=== PATIENT | male | born 1950 | race Caucasian/White ===

== ENCOUNTER 2016-12-12 09:34 | Inpatient (IN) | payer MEDICARE ==
[2016-12-12 09:55] LABS: Glucose,Whole Blood >600 mg/dL (75-99)
[2016-12-12] MEDS ORDERED: SODIUM CHLORIDE 0.9% 1,000 ML IV ONE (09:55)
[2016-12-12] MEDS ORDERED: Magnesium Replacement Protocol 1 EACH MISC MISCELLANE PRN (09:55)
[2016-12-12] MEDS ORDERED: Potassium Replacement Protocol 1 EACH MISC MISCELLANE PRN (09:55)
[2016-12-12] MEDS ORDERED: INSULIN REGULAR BOLUS (FROM DRIP BAG) IV ONE (09:55)
--- NOTE | 2016-12-12 09:59 | ED ---
General Adult HPI - General Chief complaint: Recheck/Abnormal Lab/Rx Stated complaint: hyperglycemia, no hx sent by dr ayoub Time Seen by Provider: 12/12/16 09:45 Source: patient, family, RN notes reviewed Mode of arrival: wheelchair Limitations: no limitations - History of Present Illness Initial comments: Patient is a pleasant 66-year-old male presenting to the emergency Department with reported high blood sugar. Patient did go to his doctor's office today and blood sugars found to be greater than 600. Patient admits he has not felt well for a couple of weeks. Patient has lost proximally 20 or 30 pounds. Patient has had increased thirst. Patient has had increased urination. No history of diabetes her symptoms similar in the past. - Related Data Home Medications Medication Instructions Recorded Confirmed Atorvastatin Calcium [Lipitor] 10 mg PO HS 09/10/14 12/12/16 Aspirin EC [Ecotrin] 81 mg PO HS 05/03/16 12/12/16 L.acidoph,Paracasei, B.lactis 1 cap PO HS 12/12/16 12/12/16 [Probiotic] Allergies Allergy/AdvReac Type Severity Reaction Status Date / Time No Known Allergies Allergy Verified 12/12/16 11:10 Review of Systems ROS Statement: Those systems with pertinent positive or pertinent negative responses have been documented in the HPI. ROS Other: All systems not noted in ROS Statement are negative. Constitutional: Denies: fever Eyes: Denies: eye pain ENT: Denies: ear pain Respiratory: Denies: cough Cardiovascular: Denies: chest pain Endocrine: Reports: polydipsia, polyuria. Denies: fatigue Gastrointestinal: Reports: nausea. Denies: abdominal pain Genitourinary: Denies: dysuria Musculoskeletal: Denies: back pain Skin: Denies: rash Neurological: Denies: weakness Past Medical History Past Medical History: Coronary Artery Disease (CAD), Hyperlipidemia, Myocardial Infarction ([place]) History of Any Multi-Drug Resistant Organisms: None Reported Past Surgical History: Appendectomy, Coronary Bypass/CABG, Heart Catheterization Additional Past Surgical History / Comment(s): cabg (5 vessels) 1999 Past Anesthesia/Blood Transfusion Reactions: No Reported Reaction Past Psychological History: No Psychological Hx Reported Smoking Status: Never smoker Past Alcohol Use History: None Reported Past Drug Use History: None Reported General Exam Limitations: no limitations General appearance: alert, in no apparent distress Head exam: Present: atraumatic Eye exam: Present: normal appearance ENT exam: Present: mucous membranes dry Neck exam: Present: normal inspection Respiratory exam: Present: normal lung sounds bilaterally Cardiovascular Exam: Present: regular rate, normal rhythm GI/Abdominal exam: Present: soft. Absent: tenderness Extremities exam: Present: normal inspection. Absent: pedal edema, calf tenderness Neurological exam: Present: alert Psychiatric exam: Present: normal affect, normal mood Skin exam: Present: normal color Course Vital Signs 12/12/16 12/12/16 12/12/16 09:41 10:02 11:50 Temperature 96.6 F L Pulse Rate 117 H 104 H 103 H Respiratory 16 15 18 Rate Blood Pressure 133/93 155/94 150/72 O2 Sat by Pulse 95 94 L 95 Oximetry - Reevaluation(s) Reevaluation #1: 12/12/16 12:03 Patient reevaluated. Patient and family updated on results and plan. Dr. Ayoub age for admission. IV fluids and IV insulin has been started. Patient meets criteria for hyperosmolar hyperglycemic state. 12/12/16 12:29 Case was discussed in detail with Dr. Dr. Ayoub who will admit his patient to ICU with consult for Dr. Pacheco. Dr. Pacheco has been paged. EKG Findings - EKG Comments: EKG Findings:: Sinus tachycardia 102. MA 1:30. QRS 90. QT 350. QTC 456 per left axis. Normal QRS. Normal ST-T. Medical Decision Making - Lab Data Result diagrams: 12/12/16 10:00 12/12/16 10:00 Lab Results 12/12/16 12/12/16 12/12/16 Range/Units 09:51 10:00 10:00 WBC (3.8-10.6) k/uL RBC (4.30-5.90) m/uL Hgb (13.0-17.5) gm/dL Hct (39.0-53.0) % MCV (80.0-100.0) fL MCH (25.0-35.0) pg MCHC (31.0-37.0) g/dL RDW (11.5-15.5) % Plt Count (150-450) k/uL Neutrophils % % Lymphocytes % % Monocytes % % Eosinophils % % Basophils % % Neutrophils # (1.3-7.7) k/uL Lymphocytes # (1.0-4.8) k/uL Monocytes # (0-1.0) k/uL Eosinophils # (0-0.7) k/uL Basophils # (0-0.2) k/uL Hypochromasia Sodium 147 H (137-145) mmol/L Potassium 5.6 H (3.5-5.1) mmol/L Chloride 103 (98-107) mmol/L Carbon Dioxide 14 L (22-30) mmol/L Anion Gap 30 mmol/L BUN 43 H (9-20) mg/dL Creatinine 1.40 H (0.66-1.25) mg/dL Est GFR (MDRD) Af Amer >60 (>60 ml/min/1.73 sqM) Est GFR (MDRD) Non-Af 51 (>60 ml/min/1.73 sqM) Glucose 960 H* (74-99) mg/dL POC Glucose (mg/dL) >600 H (75-99) mg/dL POC Glu Algebra Tutor ID Ramiro Dimas Osmolality 385 H* (280-301) mosm/kg Calcium 11.5 H (8.4-10.2) mg/dL Phosphorus 7.5 H (2.5-4.5) mg/dL Magnesium 2.7 H (1.6-2.3) mg/dL Total Bilirubin 1.0 (0.2-1.3) mg/dL AST 27 (17-59) U/L ALT 53 (21-72) U/L Alkaline Phosphatase 173 H (38-126) U/L Total Creatine Kinase 111 (55-170) U/L CK-MB (CK-2) 1.2 (0.0-2.4) ng/mL CK-MB (CK-2) Rel Index 1.1 Troponin I <0.012 (0.000-0.034) ng/mL Total Protein 7.5 (6.3-8.2) g/dL Albumin 4.2 (3.5-5.0) g/dL Urine Color Urine Appearance (Clear) Urine pH (5.0-8.0) Ur Specific [place] (1.001-1.035) Urine Protein (Negative) Urine Glucose (UA) (Negative) Urine Ketones (Negative) Urine Blood (Negative) Urine Nitrate (Negative) Urine Bilirubin (Negative) Urine Urobilinogen (<2.0) mg/dL Ur Leukocyte Esterase (Negative) Urine RBC (0-5) /hpf Urine WBC (0-5) /hpf Hyaline Casts (0-2) /lpf Granular Casts (0) /lpf Urine Mucus (None) /hpf Urine Osmolality (50-1400) mosm/kg Acetone, Qual Positive (Negative) 12/12/16 12/12/16 12/12/16 Range/Units 10:00 10:07 10:07 WBC 12.5 H (3.8-10.6) k/uL RBC 5.81 (4.30-5.90) m/uL Hgb 17.6 H (13.0-17.5) gm/dL Hct 58.3 H (39.0-53.0) % MCV 100.2 H (80.0-100.0) fL MCH 30.3 (25.0-35.0) pg MCHC 30.3 L (31.0-37.0) g/dL RDW 12.9 (11.5-15.5) % Plt Count 183 (150-450) k/uL Neutrophils % 90 % Lymphocytes % 5 % Monocytes % 4 % Eosinophils % 0 % Basophils % 0 % Neutrophils # 11.2 H (1.3-7.7) k/uL Lymphocytes # 0.6 L (1.0-4.8) k/uL Monocytes # 0.5 (0-1.0) k/uL Eosinophils # 0.0 (0-0.7) k/uL Basophils # 0.0 (0-0.2) k/uL Hypochromasia Marked Sodium (137-145) mmol/L Potassium (3.5-5.1) mmol/L Chloride (98-107) mmol/L Carbon Dioxide (22-30) mmol/L Anion Gap mmol/L BUN (9-20) mg/dL Creatinine (0.66-1.25) mg/dL Est GFR (MDRD) Af Amer (>60 ml/min/1.73 sqM) Est GFR (MDRD) Non-Af (>60 ml/min/1.73 sqM) Glucose (74-99) mg/dL POC Glucose (mg/dL) (75-99) mg/dL POC Glu Algebra Tutor ID Osmolality (280-301) mosm/kg Calcium (8.4-10.2) mg/dL Phosphorus (2.5-4.5) mg/dL Magnesium (1.6-2.3) mg/dL Total Bilirubin (0.2-1.3) mg/dL AST (17-59) U/L ALT (21-72) U/L Alkaline Phosphatase (38-126) U/L Total Creatine Kinase (55-170) U/L CK-MB (CK-2) (0.0-2.4) ng/mL CK-MB (CK-2) Rel Index Troponin I (0.000-0.034) ng/mL Total Protein (6.3-8.2) g/dL Albumin (3.5-5.0) g/dL Urine Color Light Yellow Urine Appearance Clear (Clear) Urine pH 5.0 (5.0-8.0) Ur Specific [place] 1.023 (1.001-1.035) Urine Protein Negative (Negative) Urine Glucose (UA) 4+ H (Negative) Urine Ketones 2+ H (Negative) Urine Blood Trace H (Negative) Urine Nitrate Negative (Negative) Urine Bilirubin Negative (Negative) Urine Urobilinogen <2.0 (<2.0) mg/dL Ur Leukocyte Esterase Negative (Negative) Urine RBC 2 (0-5) /hpf Urine WBC 1 (0-5) /hpf Hyaline Casts 1 (0-2) /lpf Granular Casts 3 (0) /lpf Urine Mucus Rare H (None) /hpf Urine Osmolality 635 (50-1400) mosm/kg Acetone, Qual (Negative) 12/12/16 Range/Units 11:47 WBC (3.8-10.6) k/uL RBC (4.30-5.90) m/uL Hgb (13.0-17.5) gm/dL Hct (39.0-53.0) % MCV (80.0-100.0) fL MCH (25.0-35.0) pg MCHC (31.0-37.0) g/dL RDW (11.5-15.5) % Plt Count (150-450) k/uL Neutrophils % % Lymphocytes % % Monocytes % % Eosinophils % % Basophils % % Neutrophils # (1.3-7.7) k/uL Lymphocytes # (1.0-4.8) k/uL Monocytes # (0-1.0) k/uL Eosinophils # (0-0.7) k/uL Basophils # (0-0.2) k/uL Hypochromasia Sodium (137-145) mmol/L Potassium (3.5-5.1) mmol/L Chloride (98-107) mmol/L Carbon Dioxide (22-30) mmol/L Anion Gap mmol/L BUN (9-20) mg/dL Creatinine (0.66-1.25) mg/dL Est GFR (MDRD) Af Amer (>60 ml/min/1.73 sqM) Est GFR (MDRD) Non-Af (>60 ml/min/1.73 sqM) Glucose (74-99) mg/dL POC Glucose (mg/dL) >600 H (75-99) mg/dL POC Glu Algebra Tutor ID Branch, Yonathan Osmolality (280-301) mosm/kg Calcium (8.4-10.2) mg/dL Phosphorus (2.5-4.5) mg/dL Magnesium (1.6-2.3) mg/dL Total Bilirubin (0.2-1.3) mg/dL AST (17-59) U/L ALT (21-72) U/L Alkaline Phosphatase (38-126) U/L Total Creatine Kinase (55-170) U/L CK-MB (CK-2) (0.0-2.4) ng/mL CK-MB (CK-2) Rel Index Troponin I (0.000-0.034) ng/mL Total Protein (6.3-8.2) g/dL Albumin (3.5-5.0) g/dL Urine Color Urine Appearance (Clear) Urine pH (5.0-8.0) Ur Specific [place] (1.001-1.035) Urine Protein (Negative) Urine Glucose (UA) (Negative) Urine Ketones (Negative) Urine Blood (Negative) Urine Nitrate (Negative) Urine Bilirubin (Negative) Urine Urobilinogen (<2.0) mg/dL Ur Leukocyte Esterase (Negative) Urine RBC (0-5) /hpf Urine WBC (0-5) /hpf Hyaline Casts (0-2) /lpf Granular Casts (0) /lpf Urine Mucus (None) /hpf Urine Osmolality (50-1400) mosm/kg Acetone, Qual (Negative) Critical Care Time Critical Care Time: Yes Total Critical Care Time: 34 Disposition Clinical Impression: Hyperosmolar non-ketotic state in patient with type 2 diabetes mellitus, Hyperglycemia Disposition: ADMITTED IP TO THIS HOSP Condition: Serious
[2016-12-12 10:21] LABS: Basophils % (A) 0 %; CH 29.7; CHCM 29.7; Eosinophils % (A) 0 %; HCT 58.3 % (39.0-53.0); HGB 17.6 gm/dL (13.0-17.5); Hypochromasia Marked; Luc % (Auto) 1; Lymphocytes # (A) 0.6 k/uL (1.0-4.8); Lymphocytes % (A) 5 %; MCH 30.3 pg (25.0-35.0); MCHC 30.3 g/dL (31.0-37.0); MCV 100.2 fL (80.0-100.0); Mean Platelet Volume 10.6; Monocytes # (A) 0.5 k/uL (0-1.0); Monocytes % (A) 4 %; Neutrophils # (A) 11.2 k/uL (1.3-7.7); Neutrophils % (A) 90 %; RBC 5.81 m/uL (4.30-5.90); RDW 12.9 % (11.5-15.5); WBC 12.5 k/uL (3.8-10.6); WBC (Perox) 12.95
[2016-12-12] MEDS: SODIUM CHLORIDE 0.9% 1,000 ML IV SCH ×3 (10:22→20:01)
[2016-12-12 10:26] LABS: ALT 53 U/L (21-72); AST 27 U/L (17-59); Alkaline Phosphatase 173 U/L (38-126); Anion Gap 30 mmol/L; Blood Urea Nitrogen 43 mg/dL (9-20); Calcium 11.5 mg/dL (8.4-10.2); Carbon Dioxide 14 mmol/L (22-30); Chloride 103 mmol/L (98-107); Magnesium 2.7 mg/dL (1.6-2.3); Non-African American GFR(MDRD) 51 (>60 ml/min/1.73 sqM); Phosphorous 7.5 mg/dL (2.5-4.5); Potassium 5.6 mmol/L (3.5-5.1); Sodium 147 mmol/L (137-145); Total Protein 7.5 g/dL (6.3-8.2)
[2016-12-12 10:30] LABS: Appearance,Urine Clear (Clear); Bilirubin,Urine Negative (Negative); Glucose,Urine (UA) 4+ (Negative); Granular Casts,Urine 3 /lpf (0); Leukocyte Esterase,Urine Negative (Negative); Mucus,Urine Rare /hpf; Nitrite,Urine Negative (Negative); Particle Count 1389; Protein,Urine Negative (Negative); RBC,Urine 2 /hpf (0-5); Specific Gravity,Urine 1.023 (1.001-1.035); UA Billing (MACRO vs. MICRO) MICRO; Urobilinogen,Urine <2.0 mg/dL (<2.0); WBC,Urine 1 /hpf (0-5)
[2016-12-12 10:36] LABS: Glucose 960 mg/dL (74-99)
[2016-12-12 10:38] LABS: Creatine Kinase 111 U/L (55-170)
[2016-12-12 10:51] LABS: Creatine Kinase MB 1.2 ng/mL (0.0-2.4); Troponin I <0.012 ng/mL (0.000-0.034)
[2016-12-12] MEDS ORDERED: INSULIN REGULAR 100 UNIT in SODIUM CHLORIDE 0.9% 100 ML IV SCH (11:00)
[2016-12-12 11:19] LABS: Ketones,Urine 2+ (Negative)
--- NOTE | 2016-12-12 11:23 | XR ---
EXAMINATION TYPE: XR chest 2V DATE OF EXAM: 12/12/2016 11:04 AM COMPARISON: 05/03/2016 HISTORY: Shortness of breath TECHNIQUE: Frontal and lateral views of the chest are obtained. FINDINGS: Scattered senescent parenchymal changes noted. Hyperinflation compatible with COPD. No evidence for infiltrate. No evidence for atelectasis. Heart size is stable. Mediastinal structures are stable and grossly unremarkable. No evidence for hilar prominence. Degenerative changes dorsal spine. IMPRESSION: 1. No evidence for acute pulmonary disease.
[2016-12-12] MEDS ORDERED: SODIUM CHLORIDE 0.9% 500 ML IV STA (11:31)
[2016-12-12 11:48] LABS: Glucose,Whole Blood >600 mg/dL (75-99)
[2016-12-12 12:31] LABS: INR 1.1 (<1.1); Prothrombin Time 10.9 sec (9.0-12.0)
[2016-12-12 12:34] LABS: Partial Thromboplastin Time 16.5 sec (22.0-30.0)
[2016-12-12 12:48] LABS: Glucose,Whole Blood 460 mg/dL (75-99)
[2016-12-12 13:42] LABS: Glucose,Whole Blood 381 mg/dL (75-99)
--- NOTE | 2016-12-12 14:01 | P.HPIM ---
History of Present Illness H&P Date: 12/12/16 Chief Complaint: diabetic ketoacidosis, new onset of diabetes, acute kidney injury, hyperosm 66-year-old male one of my office patient for long time with history of hypertension hyperlipidemia and CAD post CABG from who seen cardiology regular basis as well. Patient was in for his wellness visit few month ago and had normal blood sugar and testing at the time. Patient has been in [place] for the last few weeks but he traveled back to [place] to take care of his girlfriend was been sick for the last few weeks. Patient has complained of worsening symptom with severe tiredness fatigue polyuria and nocturia not feeling well and become more lightheaded and dizzy for the last 2 weeks become much worse lately with weight loss as well and excessive thirst's at significant weight loss. Patient symptoms become much worse today ended up doing to the office his blood sugar in the office was extremely high was sent to the emergency department at [facility] surprisingly his blood sugar was over 900 with ketone positive he was diagnosed with DKA started on insulin drip and admitted to the hospital with above problem. His kidney function was abnormal potassium was high as well. Review of Systems Constitutional: Reports anorexia, Reports fatigue, Reports lethargy, Reports malaise, Reports poor appetite, Reports sweats, Reports weakness, Reports weight loss, Denies as per HPI, Denies chills, Denies chronic headaches, Denies chronic pain, Denies daytime sleepiness, Denies fever, Denies night sweats, Denies weight gain Eyes: bilateral as per HPI Ears: bilateral: decreased hearing Ears, nose, mouth and throat: Reports ant. neck pain, Reports nasal congestion, Reports sinus pain, Reports sinus pressure, Denies as per HPI, Denies bleeding gums, Denies dental pain, Denies dysphagia, Denies epistaxis, Denies headache, Denies hoarseness, Denies mouth pain, Denies nasal discharge, Denies neck fullness/pressure, Denies neck lump, Denies nose pain, Denies odynophagia, Denies post-nasal drip, Denies swelling in mouth, Denies swelling in throat, Denies sore throat, Denies vertigo, Denies voice changes Cardiovascular: Reports as per HPI, Reports dyspnea on exertion, Reports edema, Reports high blood pressure, Reports orthopnea, Reports rapid heart beat, Reports shortness of breath, Denies chest pain, Denies claudication, Denies decreased exercise tolerance, Denies irregular heart beat, Denies leg edema, Denies lightheadedness, Denies palpitations, Denies paroxysmal nocturnal dyspnea , Denies phlebitis, Denies syncope Respiratory: Reports congestion, Reports dyspnea, Reports sleep apnea, Denies as per HPI, Denies cough, Denies cough with sputum, Denies excessive sputum, Denies hemoptysis, Denies home oxygen, Denies pain, Denies pain on inspiration, Denies pleurisy, Denies respiratory infections, Denies snoring, Denies wheezing Gastrointestinal: Reports abdominal pain, Reports bloating, Reports constipation , Reports dyspepsia, Reports indigestion, Reports nausea, Denies as per HPI, Denies belching, Denies BRBPR, Denies change in bowel habits, Denies coffee ground emesis, Denies diarrhea, Denies early satiety, Denies excessive gas, Denies heartburn, Denies hematemesis, Denies hematochezia, Denies jaundice, Denies lactose intolerance, Denies loss of appetite, Denies melena, Denies vomiting Genitourinary: Reports polyuria, Reports urinary frequency, Reports urinary hesitancy, Denies as per HPI, Denies decreased libido, Denies difficulties fathering child, Denies discharge, Denies dysuria, Denies erectile dysfunction, Denies flank pain, Denies genital pain, Denies genital sores, Denies hematuria, Denies impotence, Denies incontinence, Denies kidney stones, Denies nocturia, Denies testicular lump, Denies testicular pain, Denies urinary retention Musculoskeletal: Reports low back pain, Reports myalgias, Reports neck pain, Denies as per HPI, Denies arm numbness/tingling, Denies atrophy, Denies fractures, Denies frequent falls, Denies gait dysfunction, Denies hot joints, Denies leg numbness/tingling, Denies limitation of motion, Denies loss of height , Denies morning stiffness, Denies muscle cramps, Denies muscle weakness, Denies neck stiffness, Denies prior amputations, Denies redness of joints, Denies shooting arm pain, Denies shooting leg pain Musculoskeletal: bilateral: ankle pain Integumentary: Reports dryness, Reports pruritus, Reports rash, Denies as per HPI, Denies acne, Denies boils, Denies brittle nails, Denies change in hair/ nails, Denies color changes, Denies darkening of skin, Denies depigmentation, Denies foot/leg ulcers, Denies growths, Denies hirsutism, Denies lesions, Denies onychomycosis, Denies sores, Denies striae, Denies unusual bruising, Denies wounds Neurological: Reports ataxia, Reports numbness, Reports paresthesias, Reports tic, Reports tingling, Reports tremors, Reports vertigo, Reports weakness, Denies as per HPI, Denies aphasia, Denies balance difficulties, Denies burning pain, Denies change in mentation, Denies change in smell/taste, Denies change in speech, Denies confusion, Denies convulsions, Denies double vision, Denies gait dysfunction, Denies head injury, Denies headaches, Denies hearing difficulties, Denies lack of coordination, Denies loss of vision, Denies memory loss, Denies migraines, Denies motor disturbance, Denies paralysis, Denies seizures, Denies sensory deficit, Denies spasticity, Denies syncope, Denies transient paralysis, Denies visual changes Psychiatric: Reports anhedonia, Reports depression, Reports sadness/tearfulness , Denies as per HPI, Denies anxiety, Denies anxiety attacks, Denies change in appetite, Denies change in libido, Denies change in sleep habits, Denies confusion, Denies difficulty concentrating, Denies disorientation, Denies hallucinations, Denies hopelessness, Denies hypersomnia, Denies insomnia, Denies irritability, Denies memory loss, Denies mood swings, Denies paranoia, Denies sleep disturbances, Denies suicidal ideation Endocrine: Reports cold intolerance, Reports nocturia, Reports polyuria, Denies as per HPI, Denies deepening of the voice, Denies excessive sweating, Denies excessive thirst, Denies fatigue, Denies flushing, Denies heat intolerance, Denies high blood sugars, Denies increase in ring/shoe/hat size, Denies low blood sugars, Denies palpitations, Denies polydipsia, Denies polyphagia, Denies proptosis, Denies recent glucocorticoid use, Denies thyroid mass, Denies weight change Hematologic/Lymphatic: Reports easy bruising, Denies as per HPI, Denies easy bleeding, Denies lymphadenopathy, Denies lymphedema, Denies thrombophilia Allergic/Immunologic: Denies as per HPI, Denies allergic rhinitis, Denies anaphylaxis, Denies angioedema, Denies gluten intolerance, Denies persistent infections, Denies seasonal allergies, Denies urticaria, Denies wheezing Past Medical History Past Medical History: Coronary Artery Disease (CAD), Hyperlipidemia, Myocardial Infarction ([place]) History of Any Multi-Drug Resistant Organisms: None Reported Past Surgical History: Appendectomy, Coronary Bypass/CABG, Heart Catheterization Additional Past Surgical History / Comment(s): cabg (5 vessels) 1999 Past Anesthesia/Blood Transfusion Reactions: No Reported Reaction Past Psychological History: No Psychological Hx Reported Smoking Status: Never smoker Past Alcohol Use History: None Reported Past Drug Use History: None Reported Medications and Allergies Home Medications Medication Instructions Recorded Confirmed Type Atorvastatin Calcium [Lipitor] 10 mg PO HS 09/10/14 12/12/16 History Aspirin EC [Ecotrin] 81 mg PO HS 05/03/16 12/12/16 History L.acidoph,Paracasei, B.lactis 1 cap PO HS 12/12/16 12/12/16 History [Probiotic] Allergies Allergy/AdvReac Type Severity Reaction Status Date / Time No Known Allergies Allergy Verified 12/12/16 11:10 Physical Exam Vitals: Vital Signs Temp Pulse Resp BP Pulse Ox 12/12/16 13:00 97.5 F L 101 H 16 150/87 95 Intake and Output 12/11/16 12/12/16 12/12/16 22:59 06:59 14:59 Intake Total 8.83 Balance 8.83 Intake: Intake, IV Titration 8.83 Amount Insulin Regular 100 unit 8.83 In Sodium Chloride 0.9% 100 ml @ 0.1 UNITS/KG/HR 7.83 mls/hr IV .[id number] [facility] Rx#:[id number] - Constitutional General appearance: no average body habitus, cooperative, disheveled, no mild distress, no morbidly obese, no acute distress, no obese, no severe distress, no thin - EENT Eyes: no abnormal pupil, no anicteric sclerae, no disc margins sharp, no edentulous, no EOMI, no PERRLA, no fundus normal, no photophobia, no dentition normal, no poor dentition, no ptosis, no scleral icterus, normal appearance ENT: hard of hearing, no hearing grossly normal, no NA/AT, no normal oropharynx , no other, pharyngeal erythema, no thrush, no tonsillar exudates, no tonsillar swelling Ears: bilateral: normal - Neck Neck: no lymphadenopathy, normal ROM, no other, no rigidity, no stridor, no thyromegaly Carotids: bilateral: upstroke normal Thyroid: bilateral: normal size - Respiratory Respiratory: bilateral: CTA, diminished - Cardiovascular Rhythm: regular Heart sounds: normal: S1, S2 Abnormal Heart Sounds: systolic murmur - Gastrointestinal General gastrointestinal: no absent bowel sounds, decreased bowel sounds, no distended, no hepatomegaly, no hyperactive bowel sounds, normal bowel sounds, no organomegaly, no rigid, no scaphoid, soft, no splenomegaly, no tenderness, no umbilical hernia, no ventral hernia - Integumentary Integumentary: no calor, no cellulitis, no cyanotic, no decreased turgor, no flushed, no jaundiced, normal, no normal turgor, pale, rash, no ulcer - Neurologic Neurologic: CNII-XII intact - Musculoskeletal Musculoskeletal: gait normal, generalized weakness, strength equal bilaterally, no right sided weakness, no left sided weakness - Psychiatric Psychiatric: A&O x's 3, appropriate affect Results CBC & Chem 7: 12/12/16 10:00 12/12/16 10:00 Labs: Abnormal Lab Results - Last 24 Hours (Table) 12/12/16 12/12/16 12/12/16 Range/Units 12:05 12:47 13:40 APTT 16.5 L (22.0-30.0) sec POC Glucose (mg/dL) 460 H 381 H (75-99) mg/dL Thrombosis Risk Factor Assmnt - DVT/VTE Prophylaxis DVT/VTE Prophylaxis: Pharmacologic Prophylaxis ordered, Mechanical Prophylaxis ordered Assessment and Plan Plan: 1 acute diabetic ketoacidosis: Patient will be on insulin drip continue hydration softly and gently specially with his current blood sugar to avoid having any major neuro problem. Patient will be seen endocrinology for potential further management was start patient on insulin drip and continue on long and short-acting insulin. 2 new onset of diabetes: With blood sugar was normal recently with no clear evidence of any finding earlier. Patient will have CT of the abdomen within cut the pink attic area in the next few weeks continue to treat this as a type 2 diabetes but more insulin-dependent patient will be on insulin short and long- acting. We will consult simulation educator continue current management. 3 acute kidney injury: Continue hydration for DKA and start medication for diabetes hopefully the kidney function will improve otherwise kidney ultrasound be done next 48 hours. 4 hyperosmolality: Most likely secondary to DKA treat underlying disease continue hydration repeat osmolality in 48 hours. 5 CAD: Has been stable no chest pain or angina lately seen cardiology regular basis. 6 hyperlipidemia: On Lipitor 10 mg daily continue medication. 7 GERD: Was start patient on Pepcid 20 mg daily. 8 DVT prophylaxis: Patient will be on heparin subcutaneous for now. CODE STATUS: Full code. Expectation from this admission: Patient be in the hospital for more than 2 nights.
--- NOTE | 2016-12-12 14:42 | P.CNPUL ---
History of Present Illness Consult date: 12/12/16 Requesting physician: Ben Beltre Reason for consult: other (ICU management) Chief complaint: Hyperosmolar hyperglycemia History of present illness: Patient is a pleasant 66-year-old male who is being evaluated and examined, he came into the emergency department straight from his doctor's office today for blood sugars that were greater than 600. The patient had recently lost about 20 -30 pounds, he has had increased thirst, increased urination, fatigue, and lightheadedness. The patient has no known history of diabetes. Patient was admitted to the intensive care unit for hyperosmolar hyperglycemic state. Upon arrival to the ER the patient's blood sugar was over 900 and his ketones are positive he was then started on a DKA protocol with an insulin drip. Upon examination in the ICU, the patient lying down in bed on room air denies any acute distress or shortness of breath. He is on room air. Continues to complain of excessive thirst and frequent urination. Denies any nausea, vomiting, or diarrhea at this time. Review of Systems Complete 14 point review of systems was completed and is negative other than what is noted in the HPI Past Medical History Past Medical History: Coronary Artery Disease (CAD), Chest Pain / Angina, Hyperlipidemia, Renal Disease Additional Past Medical History / Comment(s): nephrolithiasis History of Any Multi-Drug Resistant Organisms: None Reported Past Surgical History: Appendectomy, Coronary Bypass/CABG, Heart Catheterization Additional Past Surgical History / Comment(s): 07/1999 cabg (5 vessels), colonoscopies with polypectomies, lithotripsy, hemorrhoidectomy Past Anesthesia/Blood Transfusion Reactions: No Reported Reaction Past Psychological History: No Psychological Hx Reported Additional Psychological History / Comment(s): Pt resides with his [facility]. He is independent. Smoking Status: Never smoker Past Alcohol Use History: Occasional Past Drug Use History: None Reported Medications and Allergies Home Medications Medication Instructions Recorded Confirmed Type Atorvastatin Calcium [Lipitor] 10 mg PO HS 09/10/14 12/12/16 History Aspirin EC [Ecotrin] 81 mg PO HS 05/03/16 12/12/16 History L.acidoph,Paracasei, B.lactis 1 cap PO HS 12/12/16 12/12/16 History [Probiotic] Allergies Allergy/AdvReac Type Severity Reaction Status Date / Time No Known Allergies Allergy Verified 12/12/16 11:10 Physical Exam Vitals: Vital Signs Temp Pulse Resp BP Pulse Ox 12/12/16 13:00 97.5 F L 101 H 16 150/87 95 Intake and Output 12/11/16 12/12/16 12/12/16 22:59 06:59 14:59 Intake Total 8.83 Balance 8.83 Intake: Intake, IV Titration 8.83 Amount Insulin Regular 100 unit 8.83 In Sodium Chloride 0.9% 100 ml @ 0.1 UNITS/KG/HR 7.83 mls/hr IV .[id number] [facility] Rx#:[id number] GENERAL EXAM: Alert, active, comfortable in no apparent distress. HEAD: Normocephalic. EYES: Normal reaction of pupils, equal size. NOSE: Clear with pink turbinates. THROAT: No erythema or exudates. NECK: No masses, no JVD. CHEST: No chest wall deformity. LUNGS: Equal air entry with no crackles, wheeze, rhonchi or dullness. Bases diminished CVS: S1 and S2 normal with no audible mumurs, regular rhythm. ABDOMEN: No hepatosplenomegaly, normal bowel sounds, no guarding or rigidity. EXTREMITIES: No edema noted, pedal pulses palpable. SKIN: No rashes CENTRAL NERVOUS SYSTEM: No focal deficits, tone is normal in all 4 extremities. Results - Laboratory Findings CBC and BMP: 12/12/16 10:00 12/12/16 10:00 PT/INR, D-dimer PT 10.9 sec (9.0-12.0) 12/12/16 12:05 INR 1.1 (<1.1) 12/12/16 12:05 Abnormal lab findings: Abnormal Labs 12/12/16 12/12/16 12/12/16 12:05 12:47 13:40 APTT 16.5 L POC Glucose (mg/dL) 460 H 381 H - Diagnostic Findings Chest x-ray: report reviewed, image reviewed Assessment and Plan Plan: Assessment Acute diabetic ketoacidosis New-onset diabetes mellitus Acute kidney injury Hyperosmolality History of Coronary artery disease Dyslipidemia GERD Plan Patient will continue on DKA protocol with insulin drip and we will regularly check his blood sugars. Medications reviewed and will be continued as ordered. Continue with hydration to help improve kidney function. Continue with GI and DVT prophylaxis. We will continue to monitor labs and adjust treatment as necessary. I performed an examination of the patient and discussed their management with the nurse practitioner. I have reviewed the nurse practitioner's note and agree with the documented findings and plan of care.
[2016-12-12 14:47] LABS: Glucose,Whole Blood 338 mg/dL (75-99)
[2016-12-12] MEDS: ENOXAPARIN 40 MG/0.4 ML SYRINGE SQ SCH (15:42)
[2016-12-12 15:46] LABS: Glucose,Whole Blood 285 mg/dL (75-99)
[2016-12-12 16:10] LABS: Anion Gap 9 mmol/L; Blood Urea Nitrogen 40 mg/dL (9-20); Carbon Dioxide 25 mmol/L (22-30); Chloride 118 mmol/L (98-107); Glucose 291 mg/dL (74-99); Non-African American GFR(MDRD) >60 (>60 ml/min/1.73 sqM); Phosphorous 1.9 mg/dL (2.5-4.5); Potassium 3.8 mmol/L (3.5-5.1); Sodium 152 mmol/L (137-145)
[2016-12-12] MEDS ORDERED: Phosphorus Replacement Protoco 1 EACH MISC MISCELLANE PRN (16:26)
[2016-12-12 16:51] LABS: Glucose,Whole Blood 254 mg/dL (75-99)
[2016-12-12] MEDS: SODIUM PHOSPHATE 10 MMOL in SODIUM CHLORIDE 0.9% 250 ML IVPB SCH ×2 (17:29→20:01)
[2016-12-12] MEDS: D5-0.45% NACL WITH KCL 20MEQ/L 1,000 ML IV SCH ×2 (17:29→20:01)
[2016-12-12 18:12] LABS: Glucose,Whole Blood 225 mg/dL (75-99)
[2016-12-12 19:24] LABS: Glucose,Whole Blood 220 mg/dL (75-99)
[2016-12-12] MEDS: ASPIRIN 81 MG CHEW PO SCH (20:02)
[2016-12-12] MEDS: ATORVASTATIN 10 MG TAB PO SCH (20:02)
[2016-12-12 20:12] LABS: Glucose,Whole Blood 149 mg/dL (75-99)
[2016-12-12 20:35] LABS: Glucose,Whole Blood 141 mg/dL (75-99)
[2016-12-12 20:38] LABS: Anion Gap 9 mmol/L; Blood Urea Nitrogen 34 mg/dL (9-20); Carbon Dioxide 25 mmol/L (22-30); Chloride 116 mmol/L (98-107); Glucose 159 mg/dL (74-99); Non-African American GFR(MDRD) >60 (>60 ml/min/1.73 sqM); Phosphorous 3.1 mg/dL (2.5-4.5); Potassium 3.7 mmol/L (3.5-5.1); Sodium 150 mmol/L (137-145)
[2016-12-12 21:10] LABS: Glucose,Whole Blood 163 mg/dL (75-99)
[2016-12-12] MEDS: POTASSIUM CHLORIDE 10 MEQ, LIDOCAINE 2% INJ 10 MG in SODIUM CHLORIDE 0.9% 100 ML IV SCH ×2 (21:33→22:44)
[2016-12-12] MEDS: INSULIN LISPRO (humaLOG) 300 UNIT/3 ML VIAL SQ SCH (22:44)
[2016-12-13 04:44] LABS: Basophils % (A) 0 %; CH 30.1; CHCM 32.5; Eosinophils # (A) 0.1 k/uL (0-0.7); Eosinophils % (A) 1 %; HCT 44.8 % (39.0-53.0); HGB 14.8 gm/dL (13.0-17.5); Luc # (Auto) 0.12; Luc % (Auto) 1; Lymphocytes # (A) 1.2 k/uL (1.0-4.8); Lymphocytes % (A) 12 %; MCH 30.8 pg (25.0-35.0); Mean Platelet Volume 9.9; Monocytes # (A) 0.6 k/uL (0-1.0); Monocytes % (A) 5 %; Neutrophils # (A) 8.4 k/uL (1.3-7.7); Neutrophils % (A) 81 %; WBC 10.3 k/uL (3.8-10.6); WBC (Perox) 10.44
[2016-12-13 04:53] LABS: ALT 40 U/L (21-72); AST 21 U/L (17-59); Alkaline Phosphatase 105 U/L (38-126); Anion Gap 11 mmol/L; Blood Urea Nitrogen 30 mg/dL (9-20); Calcium 9.9 mg/dL (8.4-10.2); Carbon Dioxide 23 mmol/L (22-30); Chloride 117 mmol/L (98-107); Glucose 253 mg/dL (74-99); Magnesium 2.1 mg/dL (1.6-2.3); Non-African American GFR(MDRD) >60 (>60 ml/min/1.73 sqM); Sodium 151 mmol/L (137-145); Total Bilirubin 0.7 mg/dL (0.2-1.3); Total Protein 5.3 g/dL (6.3-8.2)
[2016-12-13 04:57] LABS: MCV 93.3 fL (80.0-100.0)
[2016-12-13 05:17] LABS: Potassium 4.3 mmol/L (3.5-5.1)
[2016-12-13] MEDS: SODIUM CHLORIDE 0.9% 1,000 ML IV SCH ×3 (06:46→15:32)
[2016-12-13 07:24] LABS: Glucose,Whole Blood 269 mg/dL (75-99)
[2016-12-13] MEDS ORDERED: PANTOPRAZOLE 40 MG TABLET PO SCH (07:30)
[2016-12-13] MEDS ORDERED: INSULIN LISPRO (humaLOG) 300 UNIT/3 ML VIAL SQ SCH (07:30)
[2016-12-13] MEDS: INSULIN LISPRO (humaLOG) 300 UNIT/3 ML VIAL SQ SCH ×6 (07:46→22:28)
[2016-12-13] MEDS: ENOXAPARIN 40 MG/0.4 ML SYRINGE SQ SCH (07:46)
[2016-12-13] MEDS: FAMOTIDINE 20 MG TAB PO SCH (07:47)
[2016-12-13 07:56] LABS: Hemoglobin A1C 12.1 % (4.2-6.1)
[2016-12-13 10:32] VITALS: BMI 27.0
--- NOTE | 2016-12-13 10:46 | P.PN ---
Subjective Patient is a 66-year-old male who is being evaluated and examined today in the ICU. Patient came to the [facility] department yesterday straight from Dr. Beltre's office for blood sugars that were greater than 600. The patient had recently lost about 20-30 pounds, he had increased thirst and increased urination, fatigue and lightheadedness. The patient has no known history of diabetes. Patient was admitted to the intensive care unit for hyperosmolar hyperglycemic state. Upon arrival to the ER the patient's blood sugar was over 900 and his ketones were positive and he was started on the DKA protocol. On examination in the ICU the patient is currently resting in bed, on room air, and denies any acute distress right now. He states he is feeling better. Per the nursing staff he has been off of the insulin drip last night. He is hemodynamically stable. Objective - Vital Signs Vital signs: Vital Signs Temp 98.1 F 12/13/16 04:00 Pulse 78 12/13/16 07:00 Resp 17 12/13/16 07:00 BP 113/67 12/13/16 07:00 Pulse Ox 97 12/13/16 09:36 Intake & Output 12/12/16 12/13/16 12/13/16 18:59 06:59 18:59 Intake Total 958.83 1900 50 Output Total 200 1100 Balance 758.83 800 50 Weight 80.6 kg 80.6 kg Intake: IV 950 900 50 0.9% 450 50 D5-0.45% NaCl with KCl 450 450 20Meq/l 1,000 ml @ 150 mls/hr IV .[id number] [facility] Rx# :[id number] Sodium Chloride 0.9% 500 500 ml @ 999 mls/hr IV .Q31M [facility] Rx#:[id number] Intake, IV Titration 8.83 700 Amount Insulin Regular 100 unit 8.83 In Sodium Chloride 0.9% 100 ml @ 0.1 UNITS/KG/HR 7.83 mls/hr IV .[id number] [facility] Rx#:[id number] Potassium Chloride 10 meq 200 Lidocaine 2% Inj 10 mg In Sodium Chloride 0.9% 100 ml @ 100 mls/hr IV Q1HR [facility] Rx#:[id number] Sodium Phosphate 10 mmol 500 In Sodium Chloride 0.9% 250 ml @ 125 mls/hr IVPB Q2HR [facility] Rx#:[id number] Oral 300 Output: Urine 200 1100 Other: Voiding Method Urinal Urinal Urinal - Exam GENERAL EXAM: Alert, active, comfortable in no apparent distress. HEAD: Normocephalic. EYES: Normal reaction of pupils, equal size. NOSE: Clear with pink turbinates. THROAT: No erythema or exudates. NECK: No masses, no JVD. CHEST: No chest wall deformity. LUNGS: Equal air entry with no crackles, wheeze, rhonchi or dullness. CVS: S1 and S2 normal with no audible mumurs, regular rhythm. ABDOMEN: No hepatosplenomegaly, normal bowel sounds, no guarding or rigidity. EXTREMITIES: No edema noted, pedal pulses palpable. SKIN: No rashes CENTRAL NERVOUS SYSTEM: No focal deficits, tone is normal in all 4 extremities. - Labs CBC & Chem 7: 12/13/16 04:03 12/13/16 04:03 Labs: Abnormal Lab Results - Last 24 Hours (Table) 12/12/16 12/12/16 12/12/16 Range/Units 12:05 12:47 13:40 Plt Count (150-450) k/uL Neutrophils # (1.3-7.7) k/uL APTT 16.5 L (22.0-30.0) sec Sodium (137-145) mmol/L Chloride (98-107) mmol/L BUN (9-20) mg/dL Glucose (74-99) mg/dL POC Glucose (mg/dL) 460 H 381 H (75-99) mg/dL Hemoglobin A1c (4.2-6.1) % Phosphorus (2.5-4.5) mg/dL Total Protein (6.3-8.2) g/dL Albumin (3.5-5.0) g/dL 12/12/16 12/12/16 12/12/16 Range/Units 14:45 15:44 15:46 Plt Count (150-450) k/uL Neutrophils # (1.3-7.7) k/uL APTT (22.0-30.0) sec Sodium 152 H (137-145) mmol/L Chloride 118 H (98-107) mmol/L BUN 40 H (9-20) mg/dL Glucose 291 H (74-99) mg/dL POC Glucose (mg/dL) 338 H 285 H (75-99) mg/dL Hemoglobin A1c (4.2-6.1) % Phosphorus 1.9 L (2.5-4.5) mg/dL Total Protein (6.3-8.2) g/dL Albumin (3.5-5.0) g/dL 12/12/16 12/12/16 12/12/16 Range/Units 16:49 18:11 19:22 Plt Count (150-450) k/uL Neutrophils # (1.3-7.7) k/uL APTT (22.0-30.0) sec Sodium (137-145) mmol/L Chloride (98-107) mmol/L BUN (9-20) mg/dL Glucose (74-99) mg/dL POC Glucose (mg/dL) 254 H 225 H 220 H (75-99) mg/dL Hemoglobin A1c (4.2-6.1) % Phosphorus (2.5-4.5) mg/dL Total Protein (6.3-8.2) g/dL Albumin (3.5-5.0) g/dL 12/12/16 12/12/16 12/12/16 Range/Units 20:11 20:17 20:34 Plt Count (150-450) k/uL Neutrophils # (1.3-7.7) k/uL APTT (22.0-30.0) sec Sodium 150 H (137-145) mmol/L Chloride 116 H (98-107) mmol/L BUN 34 H (9-20) mg/dL Glucose 159 H (74-99) mg/dL POC Glucose (mg/dL) 149 H 141 H (75-99) mg/dL Hemoglobin A1c (4.2-6.1) % Phosphorus (2.5-4.5) mg/dL Total Protein (6.3-8.2) g/dL Albumin (3.5-5.0) g/dL 12/12/16 12/13/16 12/13/16 Range/Units 21:09 04:03 04:03 Plt Count 123 L (150-450) k/uL Neutrophils # 8.4 H (1.3-7.7) k/uL APTT (22.0-30.0) sec Sodium (137-145) mmol/L Chloride (98-107) mmol/L BUN (9-20) mg/dL Glucose (74-99) mg/dL POC Glucose (mg/dL) 163 H (75-99) mg/dL Hemoglobin A1c 12.1 H (4.2-6.1) % Phosphorus (2.5-4.5) mg/dL Total Protein (6.3-8.2) g/dL Albumin (3.5-5.0) g/dL 12/13/16 12/13/16 Range/Units 04:03 07:22 Plt Count (150-450) k/uL Neutrophils # (1.3-7.7) k/uL APTT (22.0-30.0) sec Sodium 151 H (137-145) mmol/L Chloride 117 H (98-107) mmol/L BUN 30 H (9-20) mg/dL Glucose 253 H (74-99) mg/dL POC Glucose (mg/dL) 269 H (75-99) mg/dL Hemoglobin A1c (4.2-6.1) % Phosphorus (2.5-4.5) mg/dL Total Protein 5.3 L (6.3-8.2) g/dL Albumin 2.7 L (3.5-5.0) g/dL Assessment and Plan Plan: Assessment Acute diabetic ketoacidosis New-onset diabetes mellitus Acute kidney injury Hyperosmolality History of Coronary artery disease Dyslipidemia GERD Plan Patient is cleared to be downgraded from the ICU. Medications reviewed and will be continued as ordered. Continue with blood sugar checks and insulin, diabetes education is put on for new diagnosis of diabetes mellitus. Continue with hydration to help improve kidney function. Continue with GI and DVT prophylaxis. We will continue to monitor labs and adjust treatment as necessary. I performed an examination of the patient and discussed their management with the nurse practitioner. I have reviewed the nurse practitioner's note and agree with the documented findings and plan of care.
--- NOTE | 2016-12-13 11:41 | P.PN ---
Subjective 66-year-old male one of my office patient for long time with history of hypertension hyperlipidemia and CAD post CABG from who seen cardiology regular basis as well. Patient was in for his wellness visit few month ago and had normal blood sugar and testing at the time. Patient has been in [place] for the last few weeks but he traveled back to [place] to take care of his girlfriend was been sick for the last few weeks. Patient has complained of worsening symptom with severe tiredness fatigue polyuria and nocturia not feeling well and become more lightheaded and dizzy for the last 2 weeks become much worse lately with weight loss as well and excessive thirst's at significant weight loss. Patient symptoms become much worse today ended up doing to the office his blood sugar in the office was extremely high was sent to the emergency department at [facility] surprisingly his blood sugar was over 900 with ketone positive he was diagnosed with DKA started on insulin drip and admitted to the hospital with above problem. His kidney function was abnormal potassium was high as well. 12/13: Blood sugars are now running 253-269. Patient will be started on Levemir and scheduled Humalog with meals. Sodium remains high at 151 and chloride wouldn 't 17. Anion gap is 11. Hemoglobin A1c is 12.1. Patient is followed by Dr. Pacheco for intensive care management. Patient will be transferred to Med-surg floor. Anticipate discharge tomorrow to home. Objective - Vital Signs Vital signs: Vital Signs Temp 98.1 F 12/13/16 04:00 Pulse 78 12/13/16 07:00 Resp 17 12/13/16 07:00 BP 113/67 12/13/16 07:00 Pulse Ox 97 12/13/16 07:00 Intake & Output 12/12/16 12/13/16 12/13/16 18:59 06:59 18:59 Intake Total 958.83 1900 50 Output Total 200 1100 Balance 758.83 800 50 Weight 80.6 kg Intake: IV 950 900 50 0.9% 450 50 D5-0.45% NaCl with KCl 450 450 20Meq/l 1,000 ml @ 150 mls/hr IV .Q6H40M [facility] Rx# :[id number] Sodium Chloride 0.9% 500 500 ml @ 999 mls/hr IV .Q31M [facility] Rx#:[id number] Intake, IV Titration 8.83 700 Amount Insulin Regular 100 unit 8.83 In Sodium Chloride 0.9% 100 ml @ 0.1 UNITS/KG/HR 7.83 mls/hr IV .[id number] [facility] Rx#:[id number] Potassium Chloride 10 meq 200 Lidocaine 2% Inj 10 mg In Sodium Chloride 0.9% 100 ml @ 100 mls/hr IV Q1HR [facility] Rx#:[id number] Sodium Phosphate 10 mmol 500 In Sodium Chloride 0.9% 250 ml @ 125 mls/hr IVPB Q2HR [facility] Rx#:[id number] Oral 300 Output: Urine 200 1100 Other: Voiding Method Urinal Urinal Urinal - Exam General appearance: no average body habitus, cooperative, disheveled, no mild distress, no morbidly obese, no acute distress, no obese, no severe distress, no thin - EENT Eyes: no abnormal pupil, no anicteric sclerae, no disc margins sharp, no edentulous, no EOMI, no PERRLA, no fundus normal, no photophobia, no dentition normal, no poor dentition, no ptosis, no scleral icterus, normal appearance ENT: hard of hearing, no hearing grossly normal, no NA/AT, no normal oropharynx , no other, pharyngeal erythema, no thrush, no tonsillar exudates, no tonsillar swelling Ears: bilateral: normal - Neck Neck: no lymphadenopathy, normal ROM, no other, no rigidity, no stridor, no thyromegaly Carotids: bilateral: upstroke normal Thyroid: bilateral: normal size - Respiratory Respiratory: bilateral: CTA, diminished - Cardiovascular Rhythm: regular Heart sounds: normal: S1, S2 Abnormal Heart Sounds: systolic murmur - Gastrointestinal General gastrointestinal: no absent bowel sounds, decreased bowel sounds, no distended, no hepatomegaly, no hyperactive bowel sounds, normal bowel sounds, no organomegaly, no rigid, no scaphoid, soft, no splenomegaly, no tenderness, no umbilical hernia, no ventral hernia - Integumentary Integumentary: no calor, no cellulitis, no cyanotic, no decreased turgor, no flushed, no jaundiced, normal, no normal turgor, pale, rash, no ulcer - Neurologic Neurologic: CNII-XII intact - Musculoskeletal Musculoskeletal: gait normal, generalized weakness, strength equal bilaterally, no right sided weakness, no left sided weakness - Psychiatric Psychiatric: A&O x's 3, appropriate affect - Labs CBC & Chem 7: 12/13/16 04:03 12/13/16 04:03 Labs: Abnormal Lab Results - Last 24 Hours (Table) 12/12/16 12/12/16 12/12/16 Range/Units 12:05 12:47 13:40 Plt Count (150-450) k/uL Neutrophils # (1.3-7.7) k/uL APTT 16.5 L (22.0-30.0) sec Sodium (137-145) mmol/L Chloride (98-107) mmol/L BUN (9-20) mg/dL Glucose (74-99) mg/dL POC Glucose (mg/dL) 460 H 381 H (75-99) mg/dL Hemoglobin A1c (4.2-6.1) % Phosphorus (2.5-4.5) mg/dL Total Protein (6.3-8.2) g/dL Albumin (3.5-5.0) g/dL 12/12/16 12/12/16 12/12/16 Range/Units 14:45 15:44 15:46 Plt Count (150-450) k/uL Neutrophils # (1.3-7.7) k/uL APTT (22.0-30.0) sec Sodium 152 H (137-145) mmol/L Chloride 118 H (98-107) mmol/L BUN 40 H (9-20) mg/dL Glucose 291 H (74-99) mg/dL POC Glucose (mg/dL) 338 H 285 H (75-99) mg/dL Hemoglobin A1c (4.2-6.1) % Phosphorus 1.9 L (2.5-4.5) mg/dL Total Protein (6.3-8.2) g/dL Albumin (3.5-5.0) g/dL 12/12/16 12/12/16 12/12/16 Range/Units 16:49 18:11 19:22 Plt Count (150-450) k/uL Neutrophils # (1.3-7.7) k/uL APTT (22.0-30.0) sec Sodium (137-145) mmol/L Chloride (98-107) mmol/L BUN (9-20) mg/dL Glucose (74-99) mg/dL POC Glucose (mg/dL) 254 H 225 H 220 H (75-99) mg/dL Hemoglobin A1c (4.2-6.1) % Phosphorus (2.5-4.5) mg/dL Total Protein (6.3-8.2) g/dL Albumin (3.5-5.0) g/dL 12/12/16 12/12/16 12/12/16 Range/Units 20:11 20:17 20:34 Plt Count (150-450) k/uL Neutrophils # (1.3-7.7) k/uL APTT (22.0-30.0) sec Sodium 150 H (137-145) mmol/L Chloride 116 H (98-107) mmol/L BUN 34 H (9-20) mg/dL Glucose 159 H (74-99) mg/dL POC Glucose (mg/dL) 149 H 141 H (75-99) mg/dL Hemoglobin A1c (4.2-6.1) % Phosphorus (2.5-4.5) mg/dL Total Protein (6.3-8.2) g/dL Albumin (3.5-5.0) g/dL 12/12/16 12/13/16 12/13/16 Range/Units 21:09 04:03 04:03 Plt Count 123 L (150-450) k/uL Neutrophils # 8.4 H (1.3-7.7) k/uL APTT (22.0-30.0) sec Sodium (137-145) mmol/L Chloride (98-107) mmol/L BUN (9-20) mg/dL Glucose (74-99) mg/dL POC Glucose (mg/dL) 163 H (75-99) mg/dL Hemoglobin A1c 12.1 H (4.2-6.1) % Phosphorus (2.5-4.5) mg/dL Total Protein (6.3-8.2) g/dL Albumin (3.5-5.0) g/dL 12/13/16 12/13/16 Range/Units 04:03 07:22 Plt Count (150-450) k/uL Neutrophils # (1.3-7.7) k/uL APTT (22.0-30.0) sec Sodium 151 H (137-145) mmol/L Chloride 117 H (98-107) mmol/L BUN 30 H (9-20) mg/dL Glucose 253 H (74-99) mg/dL POC Glucose (mg/dL) 269 H (75-99) mg/dL Hemoglobin A1c (4.2-6.1) % Phosphorus (2.5-4.5) mg/dL Total Protein 5.3 L (6.3-8.2) g/dL Albumin 2.7 L (3.5-5.0) g/dL Assessment and Plan Plan: 1 acute diabetic ketoacidosis: Patient will be on insulin drip and change to Levemir and humalog scheduled with scale. Patient will be seen endocrinology for potential further management was start patient on insulin drip and continue on long and short-acting insulin. 2 new onset of diabetes: With blood sugar was normal recently with no clear evidence of any finding earlier. Patient will have CT of the abdomen within cut the pink attic area in the next few weeks continue to treat this as a type 2 diabetes but more insulin-dependent patient will be on insulin short and long- acting. We will consult environmental educator continue current management. 3 acute kidney injury: Continue hydration for DKA and start medication for diabetes hopefully the kidney function will improve otherwise kidney ultrasound be done next 48 hours. 4 hyperosmolality: Most likely secondary to DKA treat underlying disease continue hydration repeat osmolality in 48 hours. 5 CAD: Has been stable no chest pain or angina lately seen cardiology regular basis. 6 hyperlipidemia: On Lipitor 10 mg daily continue medication. 7 GERD: Was start patient on Pepcid 20 mg daily. 8 DVT prophylaxis: Patient will be on heparin subcutaneous for now. CODE STATUS: Full code. Discharge plan: Return home tomorrow. Impression and plan of care have been directed as dictated by the signing physician. Matilde Graham nurse practitioner acting as scribe for signing physician. Time with Patient: Greater than 30
[2016-12-13 12:10] LABS: Glucose,Whole Blood 280 mg/dL (75-99)
[2016-12-13] MEDS: INSULIN DETEMIR 100 UNIT/ML 10 ML VIAL SQ SCH (12:40)
[2016-12-13 17:00] LABS: Glucose,Whole Blood 187 mg/dL (75-99)
[2016-12-13 20:44] LABS: Glucose,Whole Blood 205 mg/dL (75-99)
[2016-12-13] MEDS ORDERED: INSULIN DETEMIR 100 UNIT/ML 10 ML VIAL SQ SCH (21:00)
[2016-12-13] MEDS: ATORVASTATIN 10 MG TAB PO SCH (22:40)
[2016-12-13] MEDS: ASPIRIN 81 MG CHEW PO SCH (22:40)
[2016-12-14 07:44] LABS: Glucose,Whole Blood 147 mg/dL (75-99)
[2016-12-14 07:47] VITALS: BP 103/68; RESP 21; TEMP 97.2
[2016-12-14] MEDS: FAMOTIDINE 20 MG TAB PO SCH (08:01)
[2016-12-14] MEDS: INSULIN DETEMIR 100 UNIT/ML 10 ML VIAL SQ SCH (08:01)
[2016-12-14] MEDS: INSULIN LISPRO (humaLOG) 300 UNIT/3 ML VIAL SQ SCH ×4 (08:02→12:55)
[2016-12-14] MEDS: ENOXAPARIN 40 MG/0.4 ML SYRINGE SQ SCH (08:02)
[2016-12-14 10:08] LABS: ALT 36 U/L (21-72); AST 30 U/L (17-59); Alkaline Phosphatase 127 U/L (38-126); Anion Gap 11 mmol/L; Blood Urea Nitrogen 20 mg/dL (9-20); Calcium 9.9 mg/dL (8.4-10.2); Carbon Dioxide 25 mmol/L (22-30); Chloride 108 mmol/L (98-107); Glucose 229 mg/dL (74-99); Non-African American GFR(MDRD) >60 (>60 ml/min/1.73 sqM); Phosphorous 2.3 mg/dL (2.5-4.5); Potassium 3.9 mmol/L (3.5-5.1); Sodium 144 mmol/L (137-145); Total Protein 6.1 g/dL (6.3-8.2)
[2016-12-14 12:04] VITALS: PULSE 95
[2016-12-14 12:27] LABS: Glucose,Whole Blood 243 mg/dL (75-99)
--- NOTE | 2016-12-14 12:35 | P.PN ---
Subjective Patient is a 66-year-old male who is being evaluated and examined today. Patient came to the [facility] department yesterday straight from Dr. Beltre's office for blood sugars that were greater than 600. The patient had recently lost about 20-30 pounds, he had increased thirst and increased urination, fatigue and lightheadedness. The patient has no known history of diabetes. Patient was admitted to the intensive care unit for hyperosmolar hyperglycemic state. Upon arrival to the ER the patient's blood sugar was over 900 and his ketones were positive and he was started on the DKA protocol. On examination, the patient is on the med surg floor. the patient is currently resting in bed, on room air, and denies any acute distress right now. He states he is feeling better. Patient has completed diabetes mellitus education with her in-hospital security incident response specialist. He is hemodynamically stable. Objective - Vital Signs Vital signs: Vital Signs Temp 97.2 F L 12/14/16 07:00 Pulse 95 12/14/16 08:00 Resp 21 12/14/16 08:00 BP 103/68 12/14/16 07:00 Pulse Ox 91 L 12/14/16 07:00 Intake & Output 12/13/16 12/14/16 12/14/16 18:59 06:59 18:59 Intake Total 250 Output Total 275 700 Balance -25 -700 Weight 82 kg Intake: IV 250 0.45 200 0.9% 50 Output: Urine 275 700 Other: Voiding Method Urinal Urinal Urinal - Exam GENERAL EXAM: Alert, active, comfortable in no apparent distress. HEAD: Normocephalic. EYES: Normal reaction of pupils, equal size. NOSE: Clear with pink turbinates. THROAT: No erythema or exudates. NECK: No masses, no JVD. CHEST: No chest wall deformity. LUNGS: Equal air entry with no crackles, wheeze, rhonchi or dullness. CVS: S1 and S2 normal with no audible mumurs, regular rhythm. ABDOMEN: No hepatosplenomegaly, normal bowel sounds, no guarding or rigidity. EXTREMITIES: No edema noted, pedal pulses palpable. SKIN: No rashes CENTRAL NERVOUS SYSTEM: No focal deficits, tone is normal in all 4 extremities. - Labs CBC & Chem 7: 12/13/16 04:03 12/14/16 08:38 Labs: Abnormal Lab Results - Last 24 Hours (Table) 12/13/16 12/13/16 12/14/16 Range/Units 16:58 20:43 07:31 Chloride (98-107) mmol/L Glucose (74-99) mg/dL POC Glucose (mg/dL) 187 H 205 H 147 H (75-99) mg/dL Phosphorus (2.5-4.5) mg/dL Alkaline Phosphatase (38-126) U/L Total Protein (6.3-8.2) g/dL Albumin (3.5-5.0) g/dL 12/14/16 12/14/16 Range/Units 08:38 12:14 Chloride 108 H (98-107) mmol/L Glucose 229 H (74-99) mg/dL POC Glucose (mg/dL) 243 H (75-99) mg/dL Phosphorus 2.3 L (2.5-4.5) mg/dL Alkaline Phosphatase 127 H (38-126) U/L Total Protein 6.1 L (6.3-8.2) g/dL Albumin 3.1 L (3.5-5.0) g/dL Assessment and Plan Plan: Assessment Acute diabetic ketoacidosis New-onset diabetes mellitus Acute kidney injury Hyperosmolality History of Coronary artery disease Dyslipidemia GERD Plan Patient is cleared for discharge from a pulmonary/critical care standpoint. Medications reviewed and will be continued as ordered. Continue with blood sugar checks and insulin, diabetes education is put on for new diagnosis of diabetes mellitus. The patient should follow up outpatient with working second hand. I performed an examination of the patient and discussed their management with the nurse practitioner. I have reviewed the nurse practitioner's note and agree with the documented findings and plan of care.
--- NOTE | 2016-12-14 12:53 | P.DS ---
Providers Date of admission: 12/12/16 12:04 Expected date of discharge: 12/14/16 Attending physician: Ben Beltre Consults: 12/12/16 14:02 Consult Physician Routine Consulting Provider: Latisha Pacheco Consult Reason/Comments: DKA Do you want consulting provider notified?: Yes 12/12/16 14:29 Consult Physician Routine Consulting Provider: Mic Pacheco Consult Reason/Comments: ICU management Do you want consulting provider notified?: Already Contacted Primary care physician: [facility] Course: 66-year-old male one of my office patient for long time with history of hypertension hyperlipidemia and CAD post CABG from who seen cardiology regular basis as well. Patient was in for his wellness visit few month ago and had normal blood sugar and testing at the time. Patient has been in [place] for the last few weeks but he traveled back to [place] to take care of his girlfriend was been sick for the last few weeks. Patient has complained of worsening symptom with severe tiredness fatigue polyuria and nocturia not feeling well and become more lightheaded and dizzy for the last 2 weeks become much worse lately with weight loss as well and excessive thirst's at significant weight loss. Patient symptoms become much worse today ended up doing to the office his blood sugar in the office was extremely high was sent to the emergency department at [facility] surprisingly his blood sugar was over 900 with ketone positive he was diagnosed with DKA started on insulin drip and admitted to the hospital with above problem. His kidney function was abnormal potassium was high as well. 12/13: Blood sugars are now running 253-269. Patient will be started on Levemir and scheduled Humalog with meals. Sodium remains high at 151 and chloride wouldn 't 17. Anion gap is 11. Hemoglobin A1c is 12.1. Patient is followed by Dr. Pacheco for intensive care management. Patient will be transferred to Med-surg floor. Anticipate discharge tomorrow to home. 12/14: Blood sugars are currently running 147-280. Patient will be discharged home on Levemir 25 units in the morning and NovoLog 8 units with each meal and scale. Nursing staff to provide the current scale. Patient has been instructed to obtain samples at the office. Patient will follow-up with the senior health educator in the office on Saturday. Discharge diagnoses: 1 acute diabetic ketoacidosis 2 new onset of diabetes 3 acute kidney injury 4 hyperosmolality 5 CAD 6 hyperlipidemia 7 GERD 8 hypernatremia Discharge plan: Return home Impression and plan of care have been directed as dictated by the signing physician. Matilde Graham nurse practitioner acting as scribe for signing physician Patient Condition at Discharge: Good Plan - Discharge Summary New Discharge Prescriptions: Insulin Aspart [NovoLOG Flexpen] 8 units SQ TID #5 pen Insulin Detemir [Levemir Flextouch] 25 units SQ DAILY #5 pen Discharge Medication List Atorvastatin Calcium [Lipitor] 10 mg PO HS 09/10/14 [History] Aspirin EC [Ecotrin Low Dose] 81 mg PO HS 05/03/16 [History] L.acidoph,Paracasei, B.lactis [Probiotic] 1 cap PO HS 12/12/16 [History] INSULIN LISPRO (humaLOG) [humaLOG (formulary)] 0 unit SQ ACHS vial 12/14/16 [Rx ] Insulin Aspart [NovoLOG Flexpen] 8 units SQ TID #5 pen 12/14/16 [Rx] Insulin Detemir [Levemir Flextouch] 25 units SQ DAILY #5 pen 12/14/16 [Rx] Follow up Appointment(s)/Referral(s): Ben Beltre MD [Primary Care Provider] - 12/20/16 11:30 am (childbirth educator on Saturday in office.) [facility], [NON-STAFF] - As Needed Activity/Diet/Wound Care/Special Instructions: Patient to stop by office for pens. Please give humalog scale that he is currently using. Discharge Disposition: HOME WITH HOME HEALTH SERVICES
== END 2016-12-14 13:55 | disposition home health service (06) | DRG 638 ==
LOC: EC 09:34 → 6ICU 12:04 → 4MS4W 12-13 15:31
PROVIDERS: ADMIT Internal Medicine Geriatric Medicine; ATTEND Internal Medicine Geriatric Medicine
DX: E13.10 Other specified diabetes mellitus with ketoacidosis without coma (principal); E87.0 Hyperosmolality and hypernatremia; N17.9 Acute kidney failure, unspecified; E78.5 Hyperlipidemia, unspecified; I10 Essential (primary) hypertension; I25.10 Atherosclerotic heart disease of native coronary artery without angina pectoris; I25.2 Old myocardial infarction; K21.9 Gastro-esophageal reflux disease without esophagitis; Z79.899 Other long term (current) drug therapy; Z87.442 Personal history of urinary calculi; Z95.1 Presence of aortocoronary bypass graft; Z79.82 Long term (current) use of aspirin
CPT/HCPCS: 36415; 71020; 80051; 80053; 81001; 82009; 82550; 82553; 82565; 82947; 83036; 83735; 83930; 83935; 84100; 84484; 84520; 85025; 85610; 85730; 93005; 94760; 96361; 96365; 96376; 99291

== ENCOUNTER 2018-08-06 11:57 | Inpatient (IN) | payer MEDICARE ==
--- NOTE | 2018-08-06 12:35 | ED ---
General Adult HPI - General Chief complaint: Abdominal Pain Stated complaint: Abd Pain Time Seen by Provider: 08/06/18 12:10 Source: patient, RN notes reviewed Mode of arrival: ambulatory Limitations: no limitations - History of Present Illness Initial comments: Patient is a 68-year-old male with history of appendectomy, CAD s/p CABG, diabetes, nephrolithiasis, cholelithiasis s/p stone removal (gallbladder was not removed), who presents to the emergency department with complaints of abdominal pain, diarrhea and jaundice. He reports that he has had diarrhea for 2 weeks that has become black since this past weekend, LLQ abdominal pain off and on chronically that has become more constant lately, and he was told he has jaundice at his doctor's office today. He reports that his doctor was worried he might have a liver infection and wanted him sent here for testing. He also notes that his urine is dark yellow and had blood in it once. He has been eating soft foods lately because solids bother his stomach. He went to [place] on vacation 2 weeks ago and reports that he had one alcoholic beverage daily. Admits to increased tiredness over the past 2 weeks. Denies alcoholism, illicit drug use, previous liver disease or diverticulitis. Denies any recent fever, chills, night sweats, shortness of breath, chest pain, back pain, bloody stools , nausea or vomiting, numbness or tingling, headaches or visual changes, or any other complaints. - Related Data Home Medications Medication Instructions Recorded Confirmed Atorvastatin Calcium [Lipitor] 10 mg PO HS 09/10/14 08/06/18 Aspirin EC [Ecotrin Low Dose] 81 mg PO HS 05/03/16 08/06/18 L.acidoph,Paracasei, B.lactis 1 cap PO HS 12/12/16 08/06/18 [Probiotic] Insulin Detemir [Levemir Flextouch] 20 units SQ DAILY 08/06/18 08/06/18 Lisinopril [Zestril] 2.5 mg PO DAILY 08/06/18 08/06/18 diphenhydrAMINE HCL [Benadryl] 25 mg PO DAILY 08/06/18 08/06/18 sitaGLIPtin PHOS/metFORMIN HCL 1 tab PO DAILY 08/06/18 08/06/18 [Janumet Xr 100-1,000 mg Tablet] Allergies Allergy/AdvReac Type Severity Reaction Status Date / Time No Known Allergies Allergy Verified 08/06/18 12:31 Review of Systems ROS Statement: Those systems with pertinent positive or pertinent negative responses have been documented in the HPI. ROS Other: All systems not noted in ROS Statement are negative. Past Medical History Past Medical History: Coronary Artery Disease (CAD), Chest Pain / Angina, Hyperlipidemia, Renal Disease Additional Past Medical History / Comment(s): nephrolithiasis History of Any Multi-Drug Resistant Organisms: None Reported Past Surgical History: Appendectomy, Coronary Bypass/CABG, Heart Catheterization Additional Past Surgical History / Comment(s): 07/1999 cabg (5 vessels), colonoscopies with polypectomies, lithotripsy, hemorrhoidectomy Past Anesthesia/Blood Transfusion Reactions: No Reported Reaction Past Psychological History: No Psychological Hx Reported Smoking Status: Never smoker Past Alcohol Use History: Occasional Past Drug Use History: None Reported - Past Family History Father Family Medical History: Cancer Additional Family Medical History / Comment(s): Father had lung cancer. He was a heavy drinker. He at the age of 65yrs. Mother Family Medical History: Cancer Additional Family Medical History / Comment(s): Mother of stomach cancer at the age of 82/83 yrs. General Exam Limitations: no limitations General appearance: alert, in no apparent distress Head exam: Present: atraumatic, normocephalic Eye exam: Present: PERRL ENT exam: Present: normal oropharynx, normal external ear exam Respiratory exam: Present: normal lung sounds bilaterally Cardiovascular Exam: Present: regular rate, normal rhythm GI/Abdominal exam: Present: soft, tenderness (Mild tenderness to palpation in LLQ. No rebound tenderness.), hyperactive bowel sounds Rectal exam: Present: normal rectal tone, heme (+) stool, other (Verbal consent was given by the patient. Nurse Kimberly Wallace present during rectal exam.) Extremities exam: Present: normal inspection Neurological exam: Present: alert, oriented X3 Psychiatric exam: Present: normal affect, normal mood Skin exam: Present: warm, dry Course Vital Signs 08/06/18 08/06/18 08/06/18 12:04 14:27 17:30 Temperature 98.0 F 98.9 F Pulse Rate 86 68 71 Respiratory 20 16 16 Rate Blood Pressure 132/85 117/78 124/73 O2 Sat by Pulse 100 99 96 Oximetry Medical Decision Making - Medical Decision Making Patient is a 68-year-old male who presents to the emergency department with complaint of black diarrhea and left lower quadrant pain. He is afebrile here; vital signs are WNL. WBC elevated at 10.8. RBC, Hbg and Hct are low at 3.96, 12.3 and 38.4 respectively. Total bilirubin is elevated at 6.8. AST, ALT and alkaline phosphatase are elevated. Urinalysis revealed trace blood, glucose and protein; 2+ bilirubin; moderate leukocyte esterase; WBC 11; few amorphous sediment; rare bacteria and mucus. Stool occult blood was positive. Ultrasound of the gallbladder revealed cholelithiasis, dilated common bile duct, two kidney cysts, possible pancreatic head mass and possible hepatic steatosis. Patient will be admitted to inpatient with surgical consult. Type and screen is ordered. CT of the abdomen and pelvis with IV contrast is ordered. Urine culture is ordered. Clostridium difficile testing has been ordered. CBC ordered Q6H. Patient is NPO diet. Case discussed in detail with attending physician Dr. Nina. - Lab Data Result diagrams: 08/06/18 12:45 08/06/18 12:45 Lab Results 08/06/18 08/06/18 08/06/18 Range/Units 12:45 12:45 12:45 WBC 10.8 H (3.8-10.6) k/uL RBC 3.96 L (4.30-5.90) m/uL Hgb 12.3 L (13.0-17.5) gm/dL Hct 38.4 L (39.0-53.0) % MCV 97.1 (80.0-100.0) fL MCH 31.0 (25.0-35.0) pg MCHC 31.9 (31.0-37.0) g/dL RDW 15.4 (11.5-15.5) % Plt Count 241 (150-450) k/uL Neutrophils % 74 % Lymphocytes % 12 % Monocytes % 7 % Eosinophils % 5 % Basophils % 1 % Neutrophils # 8.0 H (1.3-7.7) k/uL Lymphocytes # 1.3 (1.0-4.8) k/uL Monocytes # 0.7 (0-1.0) k/uL Eosinophils # 0.5 (0-0.7) k/uL Basophils # 0.1 (0-0.2) k/uL PT 11.5 (9.0-12.0) sec INR 1.2 H (<1.2) APTT 22.9 (22.0-30.0) sec Sodium 138 (137-145) mmol/L Potassium 4.3 (3.5-5.1) mmol/L Chloride 106 (98-107) mmol/L Carbon Dioxide 22 (22-30) mmol/L Anion Gap 10 mmol/L BUN 16 (9-20) mg/dL Creatinine 0.68 (0.66-1.25) mg/dL Est GFR (CKD-EPI)AfAm >90 (>60 ml/min/1.73 sqM) Est GFR (CKD-EPI)NonAf >90 (>60 ml/min/1.73 sqM) Glucose 99 (74-99) mg/dL Calcium 9.8 (8.4-10.2) mg/dL Total Bilirubin 6.8 H (0.2-1.3) mg/dL AST 378 H (17-59) U/L ALT 450 H (21-72) U/L Alkaline Phosphatase 1086 H (38-126) U/L Total Protein 6.4 (6.3-8.2) g/dL Albumin 3.3 L (3.5-5.0) g/dL Amylase 37 (30-110) U/L Lipase 45 (23-300) U/L Urine Color Urine Appearance (Clear) Urine pH (5.0-8.0) Ur Specific [place] (1.001-1.035) Urine Protein (Negative) Urine Glucose (UA) (Negative) Urine Ketones (Negative) Urine Blood (Negative) Urine Nitrite (Negative) Urine Bilirubin (Negative) Urine Urobilinogen (<2.0) mg/dL Ur Leukocyte Esterase (Negative) Urine RBC (0-5) /hpf Urine WBC (0-5) /hpf Ur Squamous Epith Cells (0-4) /hpf Amorphous Sediment (None) /hpf Urine Bacteria (None) /hpf Urine Mucus (None) /hpf Stool Occult Blood (Negative) 08/06/18 08/06/18 Range/Units 14:10 16:37 WBC (3.8-10.6) k/uL RBC (4.30-5.90) m/uL Hgb (13.0-17.5) gm/dL Hct (39.0-53.0) % MCV (80.0-100.0) fL MCH (25.0-35.0) pg MCHC (31.0-37.0) g/dL RDW (11.5-15.5) % Plt Count (150-450) k/uL Neutrophils % % Lymphocytes % % Monocytes % % Eosinophils % % Basophils % % Neutrophils # (1.3-7.7) k/uL Lymphocytes # (1.0-4.8) k/uL Monocytes # (0-1.0) k/uL Eosinophils # (0-0.7) k/uL Basophils # (0-0.2) k/uL PT (9.0-12.0) sec INR (<1.2) APTT (22.0-30.0) sec Sodium (137-145) mmol/L Potassium (3.5-5.1) mmol/L Chloride (98-107) mmol/L Carbon Dioxide (22-30) mmol/L Anion Gap mmol/L BUN (9-20) mg/dL Creatinine (0.66-1.25) mg/dL Est GFR (CKD-EPI)AfAm (>60 ml/min/1.73 sqM) Est GFR (CKD-EPI)NonAf (>60 ml/min/1.73 sqM) Glucose (74-99) mg/dL Calcium (8.4-10.2) mg/dL Total Bilirubin (0.2-1.3) mg/dL AST (17-59) U/L ALT (21-72) U/L Alkaline Phosphatase (38-126) U/L Total Protein (6.3-8.2) g/dL Albumin (3.5-5.0) g/dL Amylase (30-110) U/L Lipase (23-300) U/L Urine Color Dark Brown Urine Appearance Cloudy (Clear) Urine pH 5.5 (5.0-8.0) Ur Specific [place] 1.021 (1.001-1.035) Urine Protein Trace H (Negative) Urine Glucose (UA) Trace H (Negative) Urine Ketones Negative (Negative) Urine Blood Trace H (Negative) Urine Nitrite Negative (Negative) Urine Bilirubin 2+ H (Negative) Urine Urobilinogen <2.0 (<2.0) mg/dL Ur Leukocyte Esterase Moderate H (Negative) Urine RBC 2 (0-5) /hpf Urine WBC 11 H (0-5) /hpf Ur Squamous Epith Cells <1 (0-4) /hpf Amorphous Sediment Few H (None) /hpf Urine Bacteria Rare H (None) /hpf Urine Mucus Rare H (None) /hpf Stool Occult Blood Positive (Negative) Disposition Clinical Impression: GI bleed, Abdominal pain, Cholelithiasis [facility] Condition: Good Is patient prescribed a controlled substance at d/c from ED?: No Referrals: Ben Beltre MD [Primary Care Provider] - 1-2 days Time of Disposition: 16:56
[2018-08-06] MEDS ORDERED: SODIUM CHLORIDE 0.9% 1,000 ML IV STA (12:52)
[2018-08-06 13:21] LABS: Basophils # (A) 0.1 k/uL (0-0.2); Basophils % (A) 1 %; Eosinophils # (A) 0.5 k/uL (0-0.7); Eosinophils % (A) 5 %; HCT 38.4 % (39.0-53.0); HGB 12.3 gm/dL (13.0-17.5); Lymphocytes # (A) 1.3 k/uL (1.0-4.8); Lymphocytes % (A) 12 %; MCHC 31.9 g/dL (31.0-37.0); MCV 97.1 fL (80.0-100.0); Mean Platelet Volume 8.9; Monocytes # (A) 0.7 k/uL (0-1.0); Monocytes % (A) 7 %; Neutrophils % (A) 74 %; Platelet Count 241 k/uL (150-450); RBC 3.96 m/uL (4.30-5.90); RDW 15.4 % (11.5-15.5); WBC 10.8 k/uL (3.8-10.6)
[2018-08-06 13:37] LABS: ALT 450 U/L (21-72); AST 378 U/L (17-59); Albumin 3.3 g/dL (3.5-5.0); Alkaline Phosphatase 1086 U/L (38-126); Amylase 37 U/L (30-110); Anion Gap 10 mmol/L; Blood Urea Nitrogen 16 mg/dL (9-20); Calcium 9.8 mg/dL (8.4-10.2); Carbon Dioxide 22 mmol/L (22-30); Chloride 106 mmol/L (98-107); Glucose 99 mg/dL (74-99); Lipase 45 U/L (23-300); Potassium 4.3 mmol/L (3.5-5.1); Sodium 138 mmol/L (137-145); Total Bilirubin 6.8 mg/dL (0.2-1.3); Total Protein 6.4 g/dL (6.3-8.2)
[2018-08-06 13:51] LABS: INR 1.2 (<1.2); Prothrombin Time 11.5 sec (9.0-12.0)
[2018-08-06 13:52] LABS: Partial Thromboplastin Time 22.9 sec (22.0-30.0)
[2018-08-06 14:45] LABS: Amorphous Sediment,Urine Few /hpf; Appearance,Urine Cloudy (Clear); Bacteria,Urine Rare /hpf; Bilirubin,Urine 2+ (Negative); Blood,Urine Trace (Negative); Color,Urine Dark Brown; Glucose,Urine (UA) Trace (Negative); Ketones,Urine Negative (Negative); Leukocyte Esterase,Urine Moderate (Negative); Mucus,Urine Rare /hpf; Nitrite,Urine Negative (Negative); PH, Urine 5.5 (5.0-8.0); Protein,Urine Trace (Negative); RBC,Urine 2 /hpf (0-5); Specific Gravity,Urine 1.021 (1.001-1.035); Squamous Epithelial Cell,Urine <1 /hpf (0-4); Urobilinogen,Urine <2.0 mg/dL (<2.0); WBC,Urine 11 /hpf (0-5)
--- NOTE | 2018-08-06 16:00 | US ---
EXAMINATION TYPE: US gallbladder DATE OF EXAM: 08/06/2018 COMPARISON: CT 05/03/16 CLINICAL HISTORY: Pain. black diarrhea x 1 week EXAM MEASUREMENTS: Liver Length: 16.3 cm Gallbladder Wall: 0.2 cm CBD: 1.9 cm Right Kidney: 10.9 x 5.6 x 5.0 cm Pancreas: ? hypoechoic area near pancreas area ??related to pancreas = 3.2 x 2.6 x 2.2 cm Liver: Increased attenuation, Hypoechoic area superior lobe, ? mass = 2.8 x 2.1 x 1.4 cm, heterogene ous texture overall. Gallbladder: Large size, with sludge, and multiple mobile, echogenic, shadowing foci Evidence for sonographic Hensley's sign: No CBD: Large in size. Right Kidney: lateral cyst, mid pole = 0.9 x 1.0 x 0.9 cm, Lower pole cyst = 2.1 x 2.1 x 1.5 cm IMPRESSION: Suspect hepatic steatosis. Indeterminate hypoechoic focus present within the liver adjace nt to the gallbladder. Cholelithiasis, there may be associated tumefactive sludge. Dilated common kj e duct, recommend gastroenterology consult. Possible pancreatic head mass. The exam is somewhat limit ed.
[2018-08-06] MEDS ORDERED: ACETAMINOPHEN TAB 325 MG TAB PO PRN (16:45)
[2018-08-06] MEDS ORDERED: MORPHINE SULFATE 4 MG/ML SYRINGE IV PRN (16:45)
[2018-08-06] MEDS ORDERED: ONDANSETRON 4 MG/2 ML VIAL IVP PRN (16:45)
[2018-08-06] MEDS ORDERED: NALOXONE 0.4 MG/ML 1 ML VIAL IV PRN (16:45)
[2018-08-06 18:19] LABS: Glucose,Whole Blood 74 mg/dL (75-99)
--- NOTE | 2018-08-06 18:33 | CT ---
EXAMINATION TYPE: CT abdomen pelvis w con DATE OF EXAM: 08/06/2018 COMPARISON: 05/03/2016 HISTORY: Black stools and hematuria. CT DLP: 957.9 mGycm Automated exposure control for dose reduction was used. TECHNIQUE: Helical acquisition of images was performed from the lung bases through the pelvis. CONTRAST: Performed without Oral Contrast and with IV Contrast, patient injected with 100 mL of Isovue 300. FINDINGS: Lung bases are clear of consolidation. There is mild subsegmental atelectasis at the lung bases. Hear t appears enlarged. There is mild dilation of the biliary tree. The common bile duct measures 1.5 cm. There are multiple small calcified gallstones. Spleen appears normal. There is dilated proximal pancreatic duct. . There is some atrophy of the tail of the pancreas. There is some bulkiness of the mid body of the pancreas . There is no adrenal mass. There is 1 cm cortical cyst upper pole left kidney. There are multiple bila teral calculi in the kidneys and more on the left side. These measure up to 8 mm. There is no hydrone phrosis. There is a 1.5 cm cyst lower pole right kidney. There is no retroperitoneal adenopathy. Ther e is no hydronephrosis. Ureters are not dilated. There is 2 cm cortical cyst posterior left kidney. Bladder distends smoothly. Prostate is enlarged and measures 5.6 cm. There is no free fluid in the pe lvis. There are numerous diverticula in the sigmoid colon. There is no free fluid in the abdomen. The appendix is partly seen and appears normal. There is no inguinal hernia. There is no mesenteric ayla a or adenopathy. The lumbar spine is intact. Bony pelvis appears intact. IMPRESSION: THERE IS SUBSEGMENTAL ATELECTASIS AT THE LUNG BASES. MILDLY DILATED BILIARY TREE. MRCP MIGHT BE HELPF UL FOR FURTHER EVALUATION. THIS IS A CHANGE COMPARED TO OLD CT SCAN. CALCIFIED GALLSTONES. THERE IS SOME ATROPHY OF THE TAIL OF THE PANCREAS WITH DILATED PROXIMAL PANCREATIC DUCT. THERE IS BERTRAM E BULKINESS AT THE BODY OF THE PANCREAS THAT RAISES THE POSSIBILITY OF A TUMOR. THIS APPEARS TO BE A CHANGE COMPARED TO OLD CT SCAN. FOLLOW-UP IS RECOMMENDED. MR SCAN WOULD BE HELPFUL FOR FURTHER EVALUA TION. THERE IS EXTENSIVE SIGMOID DIVERTICULOSIS WITHOUT DIVERTICULITIS. MULTIPLE NONOBSTRUCTING RENAL CALCULI. MULTIPLE RENAL CORTICAL CYSTS.
[2018-08-06 20:14] LABS: Glucose,Whole Blood 86 mg/dL (75-99)
[2018-08-06] MEDS: SODIUM CHLORIDE 0.9% 1,000 ML IV SCH (20:31)
[2018-08-06] MEDS: PIPERACILLIN-TAZOBACTAM 3.375 GM in SODIUM CHLORIDE 0.9% 100 ML IVPB SCH (20:34)
[2018-08-06 22:07] LABS: Glucose,Whole Blood 95 mg/dL (75-99)
[2018-08-07 02:15] LABS: Glucose,Whole Blood 112 mg/dL (75-99)
[2018-08-07] MEDS: SODIUM CHLORIDE 0.9% 1,000 ML IV SCH ×3 (02:52→21:52)
[2018-08-07] MEDS: PIPERACILLIN-TAZOBACTAM 3.375 GM in SODIUM CHLORIDE 0.9% 100 ML IVPB SCH ×3 (03:59→21:52)
[2018-08-07 07:00] LABS: Glucose,Whole Blood 124 mg/dL (75-99)
[2018-08-07 07:42] LABS: Basophils # (A) 0.1 k/uL (0-0.2); Basophils % (A) 1 %; Eosinophils # (A) 0.4 k/uL (0-0.7); Eosinophils % (A) 5 %; HCT 33.6 % (39.0-53.0); HGB 10.9 gm/dL (13.0-17.5); Lymphocytes # (A) 1.1 k/uL (1.0-4.8); Lymphocytes % (A) 14 %; MCH 31.2 pg (25.0-35.0); MCHC 32.3 g/dL (31.0-37.0); MCV 96.8 fL (80.0-100.0); Mean Platelet Volume 9.1; Monocytes # (A) 0.5 k/uL (0-1.0); Monocytes % (A) 6 %; Neutrophils # (A) 5.9 k/uL (1.3-7.7); Neutrophils % (A) 73 %; Platelet Count 237 k/uL (150-450); RBC 3.48 m/uL (4.30-5.90); RDW 15.3 % (11.5-15.5); WBC 8.2 k/uL (3.8-10.6)
[2018-08-07 08:11] LABS: ALT 352 U/L (21-72); AST 274 U/L (17-59); Albumin 2.7 g/dL (3.5-5.0); Alkaline Phosphatase 1008 U/L (38-126); Anion Gap 6 mmol/L; Blood Urea Nitrogen 20 mg/dL (9-20); Calcium 8.9 mg/dL (8.4-10.2); Carbon Dioxide 25 mmol/L (22-30); Chloride 108 mmol/L (98-107); Glucose 115 mg/dL (74-99); Potassium 4.6 mmol/L (3.5-5.1); Sodium 139 mmol/L (137-145); Total Bilirubin 4.6 mg/dL (0.2-1.3); Total Protein 5.5 g/dL (6.3-8.2)
[2018-08-07] MEDS: INSULIN ASPART 100 UNIT/ML 1 ML 10 ML VIAL SQ SCH ×4 (08:23→21:40)
[2018-08-07] MEDS: LISINOPRIL 2.5 MG TAB PO SCH (08:28)
[2018-08-07] MEDS ORDERED: INSULIN DETEMIR 100 UNIT/ML 10 ML VIAL SQ SCH (09:00)
[2018-08-07] MEDS ORDERED: metFORMIN 500 MG TAB PO SCH (09:00)
[2018-08-07] MEDS ORDERED: LINAGLIPTIN 5 MG TABLET PO SCH (09:00)
[2018-08-07 11:25] LABS: Glucose,Whole Blood 120 mg/dL (75-99)
[2018-08-07] MEDS: PANTOPRAZOLE 40 MG/10 ML VIAL IVP SCH (11:45)
[2018-08-07 12:56] LABS: Hemoglobin A1C 6.1 % (4.0-6.0)
--- NOTE | 2018-08-07 13:37 | P.CONS ---
History of Present Illness - Reason for Consult Consult date: 08/07/18 jaundice Requesting physician: Willy Lackey - Chief Complaint Diarrhea new-onset jaundice - History of Present Illness 68-year-old gentleman patient of Dr. Beltre past medical history of diabetes mellitus, CAD, GERD, hyperlipidemia, CABG, multiple colon polyps, admitted with multiple complaints. Over the course of 2-3 weeks he's had decreased appetite 5 pound weight loss black colored bowel movements as well as new onset of painless jaundice. He has no history of known liver disorders or hepatitis. No history of alcoholism. No changes in medications. Admission white count 10.8. Hemoglobin 12.3. Platelet 241. INR 1.2. Total bilirubin 6.8. AST 378. ALT 450. AP 1086. Lipase 45. Today total bilirubin 4.6. AST 274. ALT 352. AP 1008. Stool occult blood positive. Ultrasound abdomen gallbladder wall 0.2 cm. CBD 1.9 cm. Hypoechoic area near the pancreas 3.22.62.2 cm. Liver hypoechoic area superior lobe questionable mass 2.82.11.4 cm. Gallbladder with sludge multiple stones sludge pancreatic head mass could not be excluded. CT abdomen mild dilation of biliary tree CBD 1.5 cm small multiple calcified gallstones. Dilated proximal pancreatic duct. Some atrophy of the tail the pancreas. Bulking is of the mid body of the pancreas. Multiple nonobstructing renal calculi. Additionally patient has been reporting diarrhea that is black in color. No history GI bleed or peptic ulcer disease. No recent EGD. Colonoscopy 4 years ago. Few polyps removed. Takes baby aspirin no other NSAIDs or antiplatelet medications. Some mild left lower quadrant abdominal discomfort describes it as burning. Review of Systems Constitutional: Denies fever, chills, sweats, weight gain, or loss. HEENT: Negative for migraines, blurred vision or loss, earaches, drainage, tinnitus, oral mucosal lesions, dysphagia, or odynophagia. Cardiac: Negative for chest pain, arrhythmias, or palpitation. Respiratory: Negative for shortness of breath, hemoptysis, cough, or sputum production. Gastrointestinal: See HPI for pertinent findings. Genitourinary: Negative for hematuria, urgency, frequency, polyuria, dysuria, or penile discharge. Musculoskeletal: Negative for muscle aches, swelling, arthritis, and arthralgias. Neurologic: Negative for stroke or TIA. Endocrine: Negative for thyroid problems. Skin: Negative for rash or itching. Psychiatric: Negative history for depression and anxiety Past Medical History Past Medical History: Coronary Artery Disease (CAD), Chest Pain / Angina, GERD/ Reflux, Hyperlipidemia, Renal Disease Additional Past Medical History / Comment(s): pt wants a flu vaccine this admit. nephrolithiasis History of Any Multi-Drug Resistant Organisms: None Reported Past Surgical History: Appendectomy, Coronary Bypass/CABG, Heart Catheterization Additional Past Surgical History / Comment(s): 07/1999 cabg (5 vessels), colonoscopies with polypectomies, lithotripsy, hemorrhoidectomy Past Anesthesia/Blood Transfusion Reactions: No Reported Reaction Smoking Status: Never smoker - Past Family History Father Family Medical History: Cancer Additional Family Medical History / Comment(s): Father had lung cancer. He was a heavy drinker. He at the age of 65yrs. Mother Family Medical History: Cancer Additional Family Medical History / Comment(s): Mother of stomach cancer at the age of 82/83 yrs. Sister(s) Additional Family Medical History / Comment(s): Patient has 1 sister with no major medical problems. Patient has one son with no major medical problems. Medications and Allergies Home Medications Medication Instructions Recorded Confirmed Type Atorvastatin Calcium [Lipitor] 10 mg PO HS 09/10/14 08/06/18 History Aspirin EC [Ecotrin Low Dose] 81 mg PO HS 05/03/16 08/06/18 History L.acidoph,Paracasei, B.lactis 1 cap PO HS 12/12/16 08/06/18 History [Probiotic] Insulin Detemir [Levemir Flextouch] 20 units SQ DAILY 08/06/18 08/06/18 History Lisinopril [Zestril] 2.5 mg PO DAILY 08/06/18 08/06/18 History diphenhydrAMINE HCL [Benadryl] 25 mg PO DAILY 08/06/18 08/06/18 History sitaGLIPtin PHOS/metFORMIN HCL 1 tab PO DAILY 08/06/18 08/06/18 History [Janumet Xr 100-1,000 mg Tablet] Allergies Allergy/AdvReac Type Severity Reaction Status Date / Time No Known Allergies Allergy Verified 08/06/18 12:31 Physical Exam Vitals: Vital Signs Temp Pulse Pulse Resp BP BP Pulse Ox 11/01/18 07:17 99.1 F 83 16 103/62 97 08/07/18 01:17 99.4 F 91 22 118/63 93 L 08/06/18 20:00 98.5 F 72 18 129/72 96 08/06/18 19:26 97.8 F 72 16 128/72 96 08/06/18 17:30 98.9 F 71 16 124/73 96 08/06/18 14:27 68 16 117/78 99 Intake and Output 08/06/18 08/07/18 08/07/18 22:59 06:59 14:59 Other: # Voids 1 General appearance: The patient is alert, oriented, in no acute distress. Jaundice. HET: Head is normocephalic and atraumatic. Pupils are equal and reactive. Sclerae icterus. Oropharynx is clear without lesions. Neck: Supple without lymphadenopathy. Trachea midline. Heart: S1 S2. Regular rate and rhythm. Lungs: No crackles or wheezes are heard. Abdomen: Soft, nontender, nondistended with bowel sounds. No peritoneal signs. No palpable organomegaly or masses. Extremities: Normal skin color and turgor. No cyanosis, rash, ulceration, clubbing, or edema. Radial and pedal pulses are 2/4 bilaterally. Neurological: No focal deficits. Strength and sensation are grossly intact. Results CBC & Chem 7: 08/07/18 07:04 08/07/18 07:04 Labs: Abnormal Lab Results - Last 24 Hours (Table) 08/06/18 08/06/18 08/06/18 Range/Units 12:45 12:45 12:45 WBC 10.8 H (3.8-10.6) k/uL RBC 3.96 L (4.30-5.90) m/uL Hgb 12.3 L (13.0-17.5) gm/dL Hct 38.4 L (39.0-53.0) % Neutrophils # 8.0 H (1.3-7.7) k/uL INR 1.2 H (<1.2) Chloride (98-107) mmol/L Glucose (74-99) mg/dL POC Glucose (mg/dL) (75-99) mg/dL Hemoglobin A1c (4.0-6.0) % Total Bilirubin 6.8 H (0.2-1.3) mg/dL AST 378 H (17-59) U/L ALT 450 H (21-72) U/L Alkaline Phosphatase 1086 H (38-126) U/L Total Protein (6.3-8.2) g/dL Albumin 3.3 L (3.5-5.0) g/dL Urine Protein (Negative) Urine Glucose (UA) (Negative) Urine Blood (Negative) Urine Bilirubin (Negative) Ur Leukocyte Esterase (Negative) Urine WBC (0-5) /hpf Amorphous Sediment (None) /hpf Urine Bacteria (None) /hpf Urine Mucus (None) /hpf 08/06/18 08/06/18 08/07/18 Range/Units 14:10 18:18 02:04 WBC (3.8-10.6) k/uL RBC (4.30-5.90) m/uL Hgb (13.0-17.5) gm/dL Hct (39.0-53.0) % Neutrophils # (1.3-7.7) k/uL INR (<1.2) Chloride (98-107) mmol/L Glucose (74-99) mg/dL POC Glucose (mg/dL) 74 L 112 H (75-99) mg/dL Hemoglobin A1c (4.0-6.0) % Total Bilirubin (0.2-1.3) mg/dL AST (17-59) U/L ALT (21-72) U/L Alkaline Phosphatase (38-126) U/L Total Protein (6.3-8.2) g/dL Albumin (3.5-5.0) g/dL Urine Protein Trace H (Negative) Urine Glucose (UA) Trace H (Negative) Urine Blood Trace H (Negative) Urine Bilirubin 2+ H (Negative) Ur Leukocyte Esterase Moderate H (Negative) Urine WBC 11 H (0-5) /hpf Amorphous Sediment Few H (None) /hpf Urine Bacteria Rare H (None) /hpf Urine Mucus Rare H (None) /hpf 08/07/18 08/07/18 08/07/18 Range/Units 06:48 07:04 07:04 WBC (3.8-10.6) k/uL RBC 3.48 L (4.30-5.90) m/uL Hgb 10.9 L (13.0-17.5) gm/dL Hct 33.6 L (39.0-53.0) % Neutrophils # (1.3-7.7) k/uL INR (<1.2) Chloride 108 H (98-107) mmol/L Glucose 115 H (74-99) mg/dL POC Glucose (mg/dL) 124 H (75-99) mg/dL Hemoglobin A1c (4.0-6.0) % Total Bilirubin 4.6 H (0.2-1.3) mg/dL AST 274 H (17-59) U/L ALT 352 H (21-72) U/L Alkaline Phosphatase 1008 H (38-126) U/L Total Protein 5.5 L (6.3-8.2) g/dL Albumin 2.7 L (3.5-5.0) g/dL Urine Protein (Negative) Urine Glucose (UA) (Negative) Urine Blood (Negative) Urine Bilirubin (Negative) Ur Leukocyte Esterase (Negative) Urine WBC (0-5) /hpf Amorphous Sediment (None) /hpf Urine Bacteria (None) /hpf Urine Mucus (None) /hpf 08/07/18 08/07/18 Range/Units 07:04 11:13 WBC (3.8-10.6) k/uL RBC (4.30-5.90) m/uL Hgb (13.0-17.5) gm/dL Hct (39.0-53.0) % Neutrophils # (1.3-7.7) k/uL INR (<1.2) Chloride (98-107) mmol/L Glucose (74-99) mg/dL POC Glucose (mg/dL) 120 H (75-99) mg/dL Hemoglobin A1c 6.1 H (4.0-6.0) % Total Bilirubin (0.2-1.3) mg/dL AST (17-59) U/L ALT (21-72) U/L Alkaline Phosphatase (38-126) U/L Total Protein (6.3-8.2) g/dL Albumin (3.5-5.0) g/dL Urine Protein (Negative) Urine Glucose (UA) (Negative) Urine Blood (Negative) Urine Bilirubin (Negative) Ur Leukocyte Esterase (Negative) Urine WBC (0-5) /hpf Amorphous Sediment (None) /hpf Urine Bacteria (None) /hpf Urine Mucus (None) /hpf Microbiology - Last 24 Hours (Table) 08/06/18 14:10 Urine Culture - Preliminary Urine,Voided CT scan - abdomen: report reviewed (Dr. hTomas) US - abdomen: report reviewed (Dr. Thomas) Assessment and Plan (1) Obstructive jaundice Narrative/Plan: 68-year-old gentleman admitted with a 2-3 three-week history of painless jaundice black colored bowel movements with radiographic imaging reporting cholelithiasis dilated common bile duct and possible pancreatic mass possible liver mass, hyperechoic area in the superior lobe. Underlying obstructing neoplasm cannot be excluded other differentials consider is choledocholithiasis. Current Visit: Yes Status: Acute Code(s): K83.8 - OTHER SPECIFIED DISEASES OF BILIARY TRACT SNOMED Code(s): 05449598 (2) Cholelithiasis Current Visit: Yes Status: Acute Code(s): K80.20 - CALCULUS OF GALLBLADDER W /O CHOLECYSTITIS W/O OBSTRUCTION SNOMED Code(s): 554330992 (3) Melena Narrative/Plan: Acute GI bleed. Possible peptic ulcer disease possible neoplasm Current Visit: Yes Status: Acute Code(s): K92.1 - MELENA SNOMED Code(s): 1276368 (4) Positive occult stool blood test Current Visit: Yes Status: Acute Code(s): R19.5 - OTHER FECAL ABNORMALITIES SNOMED Code(s): 24424958 (5) Acute blood loss anemia Current Visit: Yes Status: Acute Code(s): D62 - ACUTE POSTHEMORRHAGIC ANEMIA SNOMED Code(s): 428240725 Plan: 1. CEA, AFP, CA-19-9. Hepatitis screen. 2. MRCP. 3. Nothing by mouth except medications. Protonic 40 mg IV daily. Consideration for EGD/ERCP based on MRI results. Consideration for transfer to tertiary center for EUS/ERCP/EGD if MRI reported suggest pancreatic neoplasm. 4. CBC monitoring. Will follow closely with you. Thank you for this kind referral and the opportunity to participate in the care of your patient. This consultation was discussed with Dr. Thomas. The impression and plan of care have been directed as dictated.
--- NOTE | 2018-08-07 13:48 | P.HPIM ---
History of Present Illness H&P Date: 08/07/18 Chief Complaint: Abdominal pain, diarrhea, jaundice This is a 66-year-old male patient Dr. Beltre with past history of hypertension, hyperlipidemia, coronary artery disease status post CABG. Patient states that he saw ADRYAN Baker, and Dr. Beltre's office yesterday and she thought he looked jaundice which has not had in the past and patient was sent to [facility] for evaluation. Patient denies having any nausea or vomiting. He does have some mild #2 out of 10 left lower quadrant constant pain. He denies any right upper quadrant pain. He did not notice that he was jaundiced as he just Got back from [place]. I he does have regular colonoscopies every 5 years and he is doing November for his next one. His last colonoscopy he had 2 polyps removed. Patient has not had his gallbladder removed. He states he has noted having blood in his stool for about the last week with red streaks and blackness. His urine has been dark yellow and he did have some red streaks but this has resolved. He has had decreased appetite and has lost 67 pounds in the last 2-3 weeks. He denies any abdominal fullness. Patient presented to [facility] emergency center with the above complaints. Patient was afebrile, vital signs stable, hemoglobin 12.3, WBC 10.8. INR 1.2, liver function tests were elevated with total bilirubin 6.8 , AST 378, ALT 450 and alkaline phosphatase 1086. Albumin 3.3. Electrolytes and kidney function within normal limits. Stool: "Blood was positive. 7. Urinalysis was dark brown and cloudy, leukoesterase moderate, 2+ bilirubin trace blood, RBCs 2, wbc's 11, rare bacteria. CT of the abdomen and pelvis showed subsegmental atelectasis at the lung bases mildly dilated biliary tree. MRCP might be helpful. This is changed from previous CAT scan. Atrophy of the tail of the pancreas with dilated proximal pancreatic duct. Bulkiness of the body of the pancreas raises this possibility of a tumor. This is changed from old CT. MR might be helpful. Extensive sigmoid diverticulosis without diverticulitis. Multiple nonobstructive renal calculi. Multiple renal cortical cysts. Abdominal ultrasound shows suspected hepatic steatosis. Indeterminate hypoechoic focus in the liver adjacent to the gallbladder. Cholelithiasis may be associated sludge. Dilated common bile duct. Recommend GI consult. Possible pancreatic head mass. Exam is limited. Patient was given a liter of IV fluid, started on Zosyn and admitted to the [facility] floor, consult with Dr. Bosch and GI requested. He has been made nothing by mouth and continued on Zofran for nausea, morphine for pain. Reviewed lab work and all imaging findings with the patient as well as fianc, daughter and 2 friends were at the bedside as this was agreeable to the patient. Review of Systems All systems: negative Constitutional: Reports poor appetite, Reports weight loss, Denies chills, Denies fatigue, Denies fever, Denies lethargy, Denies malaise, Denies sweats, Denies weakness Eyes: denies blurred vision, denies pain Ears, nose, mouth and throat: Denies dysphagia, Denies headache, Denies sore throat, Denies vertigo Cardiovascular: Denies chest pain, Denies edema, Denies lightheadedness, Denies shortness of breath, Denies syncope Respiratory: Denies cough, Denies cough with sputum, Denies dyspnea, Denies excessive sputum, Denies hemoptysis, Denies home oxygen, Denies wheezing Gastrointestinal: Reports abdominal pain, Reports loss of appetite, Reports melena, Denies bloating, Denies change in bowel habits, Denies diarrhea, Denies hematemesis, Denies hematochezia, Denies nausea, Denies vomiting Genitourinary: Reports hematuria, Denies dysuria, Denies urinary frequency, Denies urinary hesitancy, Denies urinary retention Musculoskeletal: Denies frequent falls, Denies gait dysfunction, Denies myalgias Integumentary: Reports color changes, Denies pruritus, Denies rash, Denies wounds Neurological: Denies change in mentation, Denies confusion, Denies gait dysfunction, Denies memory loss, Denies numbness, Denies weakness Psychiatric: Denies anxiety, Denies depression Endocrine: Denies fatigue, Denies weight change Past Medical History Past Medical History: Coronary Artery Disease (CAD), Chest Pain / Angina, GERD/ Reflux, Hyperlipidemia, Renal Disease Additional Past Medical History / Comment(s): pt wants a flu vaccine this admit. nephrolithiasis History of Any Multi-Drug Resistant Organisms: None Reported Past Surgical History: Appendectomy, Coronary Bypass/CABG, Heart Catheterization Additional Past Surgical History / Comment(s): 07/1999 cabg (5 vessels), colonoscopies with polypectomies, lithotripsy, hemorrhoidectomy Past Anesthesia/Blood Transfusion Reactions: No Reported Reaction Smoking Status: Never smoker Additional Past Alcohol Use History / Comment(s): Patient is lifelong nonsmoker , no illicit drug use, no alcohol use. - Past Family History Father Family Medical History: Cancer Additional Family Medical History / Comment(s): Father had lung cancer. He was a heavy drinker. He at the age of 65yrs. Mother Family Medical History: Cancer Additional Family Medical History / Comment(s): Mother of stomach cancer at the age of 82/83 yrs. Sister(s) Additional Family Medical History / Comment(s): Patient has 1 sister with no major medical problems. Patient has one son with no major medical problems. Medications and Allergies Home Medications Medication Instructions Recorded Confirmed Type Atorvastatin Calcium [Lipitor] 10 mg PO HS 09/10/14 08/06/18 History Aspirin EC [Ecotrin Low Dose] 81 mg PO HS 05/03/16 08/06/18 History L.acidoph,Paracasei, B.lactis 1 cap PO HS 12/12/16 08/06/18 History [Probiotic] Insulin Detemir [Levemir Flextouch] 20 units SQ DAILY 08/06/18 08/06/18 History Lisinopril [Zestril] 2.5 mg PO DAILY 08/06/18 08/06/18 History diphenhydrAMINE HCL [Benadryl] 25 mg PO DAILY 08/06/18 08/06/18 History sitaGLIPtin PHOS/metFORMIN HCL 1 tab PO DAILY 08/06/18 08/06/18 History [Janumet Xr 100-1,000 mg Tablet] Allergies Allergy/AdvReac Type Severity Reaction Status Date / Time No Known Allergies Allergy Verified 08/06/18 12:31 Physical Exam Vitals: Vital Signs Temp Pulse Pulse Resp BP BP Pulse Ox 08/07/18 07:17 99.1 F 83 16 103/62 97 08/07/18 01:17 99.4 F 91 22 118/63 93 L 08/06/18 20:00 98.5 F 72 18 129/72 96 08/06/18 19:26 97.8 F 72 16 128/72 96 08/06/18 17:30 98.9 F 71 16 124/73 96 08/06/18 14:27 68 16 117/78 99 08/06/18 12:04 98.0 F 86 20 132/85 100 Intake and Output 08/06/18 08/07/18 08/07/18 22:59 06:59 14:59 Other: # Voids 1 Gen: This is a overweight 68-year-old male. He hasn't been appears to be comfortable and in no acute distress. Generalized skin appears to be jaundice. HEENT: Head is atraumatic, normocephalic. Pupils equal, round. Sclerae is icteric. NECK: Supple. No JVD. No lymphadenopathy. No thyromegaly. LUNGS: Clear to auscultation. No wheezes or rhonchi. No intercostal retractions. HEART: Regular rate and rhythm. Systolic murmur. ABDOMEN: Soft. Bowel sounds are present. No masses. No right upper quadrant tenderness. Mild point tenderness to the left lower quadrant. EXTREMITIES: No pedal edema. No calf tenderness. NEUROLOGICAL: Patient is awake, alert and oriented x3. Cranial nerves 2 through 12 are grossly intact. Results CBC & Chem 7: 08/07/18 07:04 08/07/18 07:04 Labs: Abnormal Lab Results - Last 24 Hours (Table) 08/06/18 08/06/18 08/06/18 Range/Units 12:45 12:45 12:45 WBC 10.8 H (3.8-10.6) k/uL RBC 3.96 L (4.30-5.90) m/uL Hgb 12.3 L (13.0-17.5) gm/dL Hct 38.4 L (39.0-53.0) % Neutrophils # 8.0 H (1.3-7.7) k/uL INR 1.2 H (<1.2) Chloride (98-107) mmol/L Glucose (74-99) mg/dL POC Glucose (mg/dL) (75-99) mg/dL Total Bilirubin 6.8 H (0.2-1.3) mg/dL AST 378 H (17-59) U/L ALT 450 H (21-72) U/L Alkaline Phosphatase 1086 H (38-126) U/L Total Protein (6.3-8.2) g/dL Albumin 3.3 L (3.5-5.0) g/dL Urine Protein (Negative) Urine Glucose (UA) (Negative) Urine Blood (Negative) Urine Bilirubin (Negative) Ur Leukocyte Esterase (Negative) Urine WBC (0-5) /hpf Amorphous Sediment (None) /hpf Urine Bacteria (None) /hpf Urine Mucus (None) /hpf 08/06/18 08/06/18 08/07/18 Range/Units 14:10 18:18 02:04 WBC (3.8-10.6) k/uL RBC (4.30-5.90) m/uL Hgb (13.0-17.5) gm/dL Hct (39.0-53.0) % Neutrophils # (1.3-7.7) k/uL INR (<1.2) Chloride (98-107) mmol/L Glucose (74-99) mg/dL POC Glucose (mg/dL) 74 L 112 H (75-99) mg/dL Total Bilirubin (0.2-1.3) mg/dL AST (17-59) U/L ALT (21-72) U/L Alkaline Phosphatase (38-126) U/L Total Protein (6.3-8.2) g/dL Albumin (3.5-5.0) g/dL Urine Protein Trace H (Negative) Urine Glucose (UA) Trace H (Negative) Urine Blood Trace H (Negative) Urine Bilirubin 2+ H (Negative) Ur Leukocyte Esterase Moderate H (Negative) Urine WBC 11 H (0-5) /hpf Amorphous Sediment Few H (None) /hpf Urine Bacteria Rare H (None) /hpf Urine Mucus Rare H (None) /hpf 08/07/18 08/07/18 08/07/18 Range/Units 06:48 07:04 07:04 WBC (3.8-10.6) k/uL RBC 3.48 L (4.30-5.90) m/uL Hgb 10.9 L (13.0-17.5) gm/dL Hct 33.6 L (39.0-53.0) % Neutrophils # (1.3-7.7) k/uL INR (<1.2) Chloride 108 H (98-107) mmol/L Glucose 115 H (74-99) mg/dL POC Glucose (mg/dL) 124 H (75-99) mg/dL Total Bilirubin 4.6 H (0.2-1.3) mg/dL AST 274 H (17-59) U/L ALT 352 H (21-72) U/L Alkaline Phosphatase 1008 H (38-126) U/L Total Protein 5.5 L (6.3-8.2) g/dL Albumin 2.7 L (3.5-5.0) g/dL Urine Protein (Negative) Urine Glucose (UA) (Negative) Urine Blood (Negative) Urine Bilirubin (Negative) Ur Leukocyte Esterase (Negative) Urine WBC (0-5) /hpf Amorphous Sediment (None) /hpf Urine Bacteria (None) /hpf Urine Mucus (None) /hpf Microbiology - Last 24 Hours (Table) 08/06/18 14:10 Urine Culture - Preliminary Urine,Voided Thrombosis Risk Factor Assmnt - DVT/VTE Prophylaxis DVT/VTE Prophylaxis: Pharmacologic Prophylaxis ordered - Choose All That Apply Any of the Below Risk Factors Present?: Yes Each Factor Represents 1 point: Obesity (BMI >25) Other Risk Factors: Yes Each Risk Factor Represents 2 Points: Age 61-74 years Other congenital or acquired thrombophilia - If yes, enter type in comment: No Thrombosis Risk Factor Assessment Total Risk Factor Score: 3 Thrombosis Risk Factor Assessment Level: Moderate Risk Assessment and Plan Plan: 1. Abdominal pain with elevated liver function tests, concern for obstructive jaundice, pancreatic mass, possible GI bleed. Continue Zosyn, consult with Dr. Bosch and GI requested. Patient has been made nothing by mouth and continued on Zofran for nausea, morphine for pain. Monitor CMP and CBC daily as well as INR. 2. Hypertension. Continue lisinopril 2.5 mg daily. 3. Diabetes mellitus type 2. Continue Janumet discontinued. Patient is normally on Levemir 20 units daily which will be decreased to 10 units and NovoLog scale before meals and at bedtime. 4. Hyperlipidemia. Patient is normally on Lipitor 10 mg which is placed on hold. 5. History of coronary artery disease status post CABG. Continue aspirin 81 mg daily. 6. DVT prophylaxis. Heparin subcu. 7. GI prophylaxis. Protonix IV. Patient will be admitted to the hospital for a minimum of 2 night stay. Discharge plan: Return home Impression and plan of care have been directed as dictated by the signing physician. Matilde Graham nurse practitioner acting as scribe for signing physician.
--- NOTE | 2018-08-07 15:43 | P.GSCN ---
History of Present Illness Consult date: 08/07/18 Reason for Consult: Elevated liver enzymes History of present illness: Patient came to the hospital with diminished appetite, dark colored urine almost bloody in appearance, and some weight loss. Symptoms have been going on for the last 3-4 weeks. He was in [place] so he was unable to appreciate any discoloration of his skin. Denies pain. Some increased fatigue. Is found to have elevated liver enzymes and bilirubin. Ultrasound and CAT scan show gallstones with biliary dilation. Possible pancreatic mass also appreciated with some suggestion of distal pancreatic ductal dilatation. Patient scheduled for MRCP at this time. Review of Systems The patient denies any acute changes in vision or hearing, no dysphagia or odynophagia, no chest pain or shortness of breath, no dysuria, no headache, no runny nose, no rectal bleeding or melena Past Medical History Past Medical History: Coronary Artery Disease (CAD), Chest Pain / Angina, GERD/ Reflux, Hyperlipidemia, Renal Disease Additional Past Medical History / Comment(s): pt wants a flu vaccine this admit. nephrolithiasis History of Any Multi-Drug Resistant Organisms: None Reported Past Surgical History: Appendectomy, Coronary Bypass/CABG, Heart Catheterization Additional Past Surgical History / Comment(s): 07/1999 cabg (5 vessels), colonoscopies with polypectomies, lithotripsy, hemorrhoidectomy Past Anesthesia/Blood Transfusion Reactions: No Reported Reaction Smoking Status: Never smoker Additional Past Alcohol Use History / Comment(s): Patient is lifelong nonsmoker , no illicit drug use, no alcohol use. - Past Family History Father Family Medical History: Cancer Additional Family Medical History / Comment(s): Father had lung cancer. He was a heavy drinker. He at the age of 65yrs. Mother Family Medical History: Cancer Additional Family Medical History / Comment(s): Mother of stomach cancer at the age of 82/83 yrs. Sister(s) Additional Family Medical History / Comment(s): Patient has 1 sister with no major medical problems. Patient has one son with no major medical problems. Medications and Allergies Home Medications Medication Instructions Recorded Confirmed Type Atorvastatin Calcium [Lipitor] 10 mg PO HS 09/10/14 08/06/18 History Aspirin EC [Ecotrin Low Dose] 81 mg PO HS 05/03/16 08/06/18 History L.acidoph,Paracasei, B.lactis 1 cap PO HS 12/12/16 08/06/18 History [Probiotic] Insulin Detemir [Levemir Flextouch] 20 units SQ DAILY 08/06/18 08/06/18 History Lisinopril [Zestril] 2.5 mg PO DAILY 08/06/18 08/06/18 History diphenhydrAMINE HCL [Benadryl] 25 mg PO DAILY 08/06/18 08/06/18 History sitaGLIPtin PHOS/metFORMIN HCL 1 tab PO DAILY 08/06/18 08/06/18 History [Janumet Xr 100-1,000 mg Tablet] Allergies Allergy/AdvReac Type Severity Reaction Status Date / Time No Known Allergies Allergy Verified 08/06/18 12:31 Surgical - Exam Vital Signs Temp Pulse Resp BP Pulse Ox 98.0 F 86 20 132/85 100 08/06/18 12:04 08/06/18 12:04 08/06/18 12:04 08/06/18 12:04 08/06/18 12:04 Physical exam: General: Well-developed, well-nourished HEENT: Normocephalic, sclerae icteric Abdomen: Nontender, nondistended Extremities: No edema Neuro: Alert and oriented Results - Labs 08/07/18 07:04 08/07/18 07:04 Abnormal Lab Results - Last 24 Hours (Table) 08/06/18 08/07/18 08/07/18 Range/Units 18:18 02:04 06:48 RBC (4.30-5.90) m/uL Hgb (13.0-17.5) gm/dL Hct (39.0-53.0) % Chloride (98-107) mmol/L Glucose (74-99) mg/dL POC Glucose (mg/dL) 74 L 112 H 124 H (75-99) mg/dL Hemoglobin A1c (4.0-6.0) % Total Bilirubin (0.2-1.3) mg/dL AST (17-59) U/L ALT (21-72) U/L Alkaline Phosphatase (38-126) U/L Total Protein (6.3-8.2) g/dL Albumin (3.5-5.0) g/dL 08/07/18 08/07/18 08/07/18 Range/Units 07:04 07:04 07:04 RBC 3.48 L (4.30-5.90) m/uL Hgb 10.9 L (13.0-17.5) gm/dL Hct 33.6 L (39.0-53.0) % Chloride 108 H (98-107) mmol/L Glucose 115 H (74-99) mg/dL POC Glucose (mg/dL) (75-99) mg/dL Hemoglobin A1c 6.1 H (4.0-6.0) % Total Bilirubin 4.6 H (0.2-1.3) mg/dL AST 274 H (17-59) U/L ALT 352 H (21-72) U/L Alkaline Phosphatase 1008 H (38-126) U/L Total Protein 5.5 L (6.3-8.2) g/dL Albumin 2.7 L (3.5-5.0) g/dL 08/07/18 Range/Units 11:13 RBC (4.30-5.90) m/uL Hgb (13.0-17.5) gm/dL Hct (39.0-53.0) % Chloride (98-107) mmol/L Glucose (74-99) mg/dL POC Glucose (mg/dL) 120 H (75-99) mg/dL Hemoglobin A1c (4.0-6.0) % Total Bilirubin (0.2-1.3) mg/dL AST (17-59) U/L ALT (21-72) U/L Alkaline Phosphatase (38-126) U/L Total Protein (6.3-8.2) g/dL Albumin (3.5-5.0) g/dL Microbiology - Last 24 Hours (Table) 08/06/18 14:10 Urine Culture - Preliminary Urine,Voided Diabetes panel 08/07/18 08/07/18 Range/Units 07:04 07:04 Sodium 139 (137-145) mmol/L Potassium 4.6 (3.5-5.1) mmol/L Chloride 108 H (98-107) mmol/L Carbon Dioxide 25 (22-30) mmol/L BUN 20 (9-20) mg/dL Creatinine 0.78 (0.66-1.25) mg/dL Glucose 115 H (74-99) mg/dL Hemoglobin A1c 6.1 H (4.0-6.0) % Calcium 8.9 (8.4-10.2) mg/dL AST 274 H (17-59) U/L ALT 352 H (21-72) U/L Alkaline Phosphatase 1008 H (38-126) U/L Total Protein 5.5 L (6.3-8.2) g/dL Albumin 2.7 L (3.5-5.0) g/dL Calcium panel 08/07/18 Range/Units 07:04 Calcium 8.9 (8.4-10.2) mg/dL Albumin 2.7 L (3.5-5.0) g/dL Pituitary panel 08/07/18 Range/Units 07:04 Sodium 139 (137-145) mmol/L Potassium 4.6 (3.5-5.1) mmol/L Chloride 108 H (98-107) mmol/L Carbon Dioxide 25 (22-30) mmol/L BUN 20 (9-20) mg/dL Creatinine 0.78 (0.66-1.25) mg/dL Glucose 115 H (74-99) mg/dL Calcium 8.9 (8.4-10.2) mg/dL Adrenal panel 08/07/18 Range/Units 07:04 Sodium 139 (137-145) mmol/L Potassium 4.6 (3.5-5.1) mmol/L Chloride 108 H (98-107) mmol/L Carbon Dioxide 25 (22-30) mmol/L BUN 20 (9-20) mg/dL Creatinine 0.78 (0.66-1.25) mg/dL Glucose 115 H (74-99) mg/dL Calcium 8.9 (8.4-10.2) mg/dL Total Bilirubin 4.6 H (0.2-1.3) mg/dL AST 274 H (17-59) U/L ALT 352 H (21-72) U/L Alkaline Phosphatase 1008 H (38-126) U/L Total Protein 5.5 L (6.3-8.2) g/dL Albumin 2.7 L (3.5-5.0) g/dL Assessment and Plan (1) Obstructive jaundice Narrative/Plan: Agree with suspicion for pancreatic neoplasm. Await MRCP findings. Further recommendations pending. Current Visit: Yes Status: Acute Code(s): K83.8 - OTHER SPECIFIED DISEASES OF BILIARY TRACT SNOMED Code(s): 58477201
[2018-08-07 17:53] LABS: Glucose,Whole Blood 124 mg/dL (75-99)
--- NOTE | 2018-08-07 19:09 | MR ---
EXAMINATION TYPE: MR MRCP DATE OF EXAM: 08/07/2018 COMPARISON: HISTORY: Jaundice, abd pain Standard multiplanar, multisequence MRI departmental protocol Multiplanar, multisequence images of the abdomen were acquired. FINDINGS: There are rounded fluid signal foci in the liver that measure up to 1.2 cm consistent with cysts. There is a 2 cm intermediate signal rounded focus in the lateral right lobe of the liver. This is seen on the coronal T2 images. There is a second similar-appearing focus that measures 1.8 cm in the left lobe. There is mixed signal 2.3 cm rounded focus in the left lateral aspect left lobe of the liver. There are other smaller 1 cm subtle foci of increased signal on the T2 images in the liver. Spleen appears normal. There is dilated proximal pancreatic duct. Distal pancreatic duct is not dila james. There is 3 cm rounded mixed signal area in the body of the pancreas in the midline of the abdome n. This is suspicious for tumor. The splenic vein appears patent. Superior mesenteric vein and portal vein appear patent. There is mild ectasia of the intra and extrahepatic bile ducts. The common bile duct measures up to 1.5 cm. I do not see a mass at the distal common bile duct. There are multiple ro unded filling defects in the dependent gallbladder consistent with multiple small gallstones. These m easure up to 5 mm. There is no gallbladder wall thickening. There is no adrenal mass. Kidneys show no hydronephrosis. There are bilateral multiple renal cortical cysts that measure up to 2.3 cm. There is no ascites. There is no sign of retroperitoneal adenopathy . IMPRESSION: Dilated proximal pancreatic duct with evidence of a mass in the mid body of the pancreas suspicious f or tumor. There are are lesions in the liver that are suspicious for metastatic disease. Dilated biliary tree. Gallstones. I see no mass at the distal common bile duct. The appearance could relate to a small obstructing calculus in the distal common bile duct. Stricture is also possible. Th e distal duct has abrupt termination and is more suggestive of obstructing stone.
[2018-08-07] MEDS ORDERED: ATORVASTATIN 10 MG TAB PO SCH (21:00)
[2018-08-07 21:26] LABS: Glucose,Whole Blood 124 mg/dL (75-99)
[2018-08-07] MEDS: HEPARIN SODIUM,PORCINE 5,000 UNIT/ML 1 ML VIAL SQ SCH (21:52)
[2018-08-08] MEDS: PIPERACILLIN-TAZOBACTAM 3.375 GM in SODIUM CHLORIDE 0.9% 100 ML IVPB SCH ×2 (04:44→11:27)
[2018-08-08 07:05] LABS: Glucose,Whole Blood 92 mg/dL (75-99)
[2018-08-08] MEDS: INSULIN ASPART 100 UNIT/ML 1 ML 10 ML VIAL SQ SCH ×2 (07:31→13:02)
[2018-08-08 07:32] VITALS: BP 112/73; PULSE 70; RESP 18; TEMP 98.7
[2018-08-08 07:35] LABS: INR 1.9 (<1.2); Prothrombin Time 17.3 sec (9.0-12.0)
[2018-08-08 07:36] LABS: ALT 237 U/L (21-72); AST 138 U/L (17-59); Albumin 2.6 g/dL (3.5-5.0); Alkaline Phosphatase 709 U/L (38-126); Anion Gap 7 mmol/L; Blood Urea Nitrogen 20 mg/dL (9-20); Calcium 8.8 mg/dL (8.4-10.2); Carbon Dioxide 24 mmol/L (22-30); Chloride 111 mmol/L (98-107); Glucose 93 mg/dL (74-99); Potassium 4.7 mmol/L (3.5-5.1); Sodium 142 mmol/L (137-145); Total Bilirubin 2.4 mg/dL (0.2-1.3); Total Protein 5.2 g/dL (6.3-8.2)
[2018-08-08] MEDS ORDERED: INSULIN DETEMIR 100 UNIT/ML 10 ML VIAL SQ SCH (09:00)
[2018-08-08] MEDS: HEPARIN SODIUM,PORCINE 5,000 UNIT/ML 1 ML VIAL SQ SCH (09:28)
[2018-08-08] MEDS: PANTOPRAZOLE 40 MG/10 ML VIAL IVP SCH (09:32)
[2018-08-08] MEDS: LISINOPRIL 2.5 MG TAB PO SCH (09:32)
[2018-08-08 12:09] LABS: Alpha Fetoprotein, Tumor Mkr 2.9 ng/mL (0.0-7.9)
[2018-08-08 12:28] LABS: Hepatitis A Antibody IgM Non-Reactive (Non-Reactive); Hepatitis B Core IgM Non-Reactive (Non-Reactive)
[2018-08-08 12:43] LABS: Glucose,Whole Blood 88 mg/dL (75-99)
[2018-08-08] MEDS: SODIUM CHLORIDE 0.9% 1,000 ML IV SCH (13:20)
[2018-08-08 13:38] LABS: Cancer Antigen 19-9 961.2 U/mL (0.0-34.9)
--- NOTE | 2018-08-08 14:03 | P.DS ---
Providers Date of admission: 08/06/18 17:00 Expected date of discharge: 08/08/18 Attending physician: Willy Lackey MD Consults: 08/06/18 16:49 Consult Physician Urgent Consulting Provider: Eduar Bosch Consult Reason/Comments: Abdominal pain Do you want consulting provider notified?: Yes 08/07/18 11:09 Consult Physician Routine Consulting Provider: Harish Thomas Consult Reason/Comments: biliary dilation Do you want consulting provider notified?: Yes Primary care physician: Ben Beltre [facility] Course: This is a 66-year-old male patient Dr. Beltre with past history of hypertension, hyperlipidemia, coronary artery disease status post CABG. Patient states that he saw ADRYAN Baker, and Dr. Beltre's office yesterday and she thought he looked jaundice which has not had in the past and patient was sent to [facility] for evaluation. Patient denies having any nausea or vomiting. He does have some mild #2 out of 10 left lower quadrant constant pain. He denies any right upper quadrant pain. He did not notice that he was jaundiced as he just Got back from [place]. I he does have regular colonoscopies every 5 years and he is doing November for his next one. His last colonoscopy he had 2 polyps removed. Patient has not had his gallbladder removed. He states he has noted having blood in his stool for about the last week with red streaks and blackness. His urine has been dark yellow and he did have some red streaks but this has resolved. He has had decreased appetite and has lost 67 pounds in the last 2-3 weeks. He denies any abdominal fullness. Patient presented to [facility] emergency center with the above complaints. Patient was afebrile, vital signs stable, hemoglobin 12.3, WBC 10.8. INR 1.2, liver function tests were elevated with total bilirubin 6.8 , AST 378, ALT 450 and alkaline phosphatase 1086. Albumin 3.3. Electrolytes and kidney function within normal limits. Stool: "Blood was positive. 7. Urinalysis was dark brown and cloudy, leukoesterase moderate, 2+ bilirubin trace blood, RBCs 2, wbc's 11, rare bacteria. CT of the abdomen and pelvis showed subsegmental atelectasis at the lung bases mildly dilated biliary tree. MRCP might be helpful. This is changed from previous CAT scan. Atrophy of the tail of the pancreas with dilated proximal pancreatic duct. Bulkiness of the body of the pancreas raises this possibility of a tumor. This is changed from old CT. MR might be helpful. Extensive sigmoid diverticulosis without diverticulitis. Multiple nonobstructive renal calculi. Multiple renal cortical cysts. Abdominal ultrasound shows suspected hepatic steatosis. Indeterminate hypoechoic focus in the liver adjacent to the gallbladder. Cholelithiasis may be associated sludge. Dilated common bile duct. Recommend GI consult. Possible pancreatic head mass. Exam is limited. Patient was given a liter of IV fluid, started on Zosyn and admitted to the [facility] floor, consult with Dr. Bosch and GI requested. He has been made nothing by mouth and continued on Zofran for nausea, morphine for pain. Reviewed lab work and all imaging findings with the patient as well as fianc, daughter and 2 friends were at the bedside as this was agreeable to the patient. 08/08: Patient underwent MRCP that showed dilated proximal pancreatic duct with evidence of a mass in the mid body of the pancreas suspicious for tumor. There are lesions in the liver that is suspicious for metastatic disease. Patient is followed by Dr. Bosch and [facility]. CEA, AFP, CA 199 and hepatitis panel have been ordered. Dr. Thomas is asking for oncology consult and interventional radiology for biopsy of one of the lesions. ERCP will not be able to be done today. Interventional radiology is evaluating but doubt that they will be able to do the biopsy. INR 1.9, hemoglobin A1c 6.1. Liver functions are improved from yesterday with total bilirubin 2.4, AST 138, ALT 237, alkaline phosphatase 709. Vital signs are stable. He has been afebrile, pulse ox 97% on room air. Reviewed all results and information with the patient and family members at the bedside. They are willing to transfer to [facility]. Patient has been accepted to [facility] will be transferred once arrangements are completed. Discharge diagnoses: 1. Abdominal pain with elevated liver function tests, concern for obstructive jaundice, pancreatic mass and metastatic disease to the liver, possible GI bleed. 2. Hypertension. 3. Diabetes mellitus type 2. 4. Hyperlipidemia. 5. History of coronary artery disease status post CABG. Impression and plan of care have been directed as dictated by the signing physician. Matilde Graham nurse practitioner acting as scribe for signing physician. Patient Condition at Discharge: Good Plan - Discharge Summary Discharge Rx Participant: Yes New Discharge Prescriptions: No Action Atorvastatin Calcium [Lipitor] 10 mg PO HS Aspirin EC [Ecotrin Low Dose] 81 mg PO HS L.acidoph,Paracasei, B.lactis [Probiotic] 1 cap PO HS sitaGLIPtin PHOS/metFORMIN HCL [Janumet Xr 100-1,000 mg Tablet] 1 tab PO DAILY diphenhydrAMINE HCL [Benadryl] 25 mg PO DAILY Lisinopril [Zestril] 2.5 mg PO DAILY Insulin Detemir [Levemir Flextouch] 20 units SQ DAILY Discharge Medication List Atorvastatin Calcium [Lipitor] 10 mg PO HS 09/10/14 [History] Aspirin EC [Ecotrin Low Dose] 81 mg PO HS 05/03/16 [History] L.acidoph,Paracasei, B.lactis [Probiotic] 1 cap PO HS 12/12/16 [History] Insulin Detemir [Levemir Flextouch] 20 units SQ DAILY 08/06/18 [History] Lisinopril [Zestril] 2.5 mg PO DAILY 08/06/18 [History] diphenhydrAMINE HCL [Benadryl] 25 mg PO DAILY 08/06/18 [History] sitaGLIPtin PHOS/metFORMIN HCL [Janumet Xr 100-1,000 mg Tablet] 1 tab PO DAILY 08/06/18 [History] Follow up Appointment(s)/Referral(s): Ben Beltre MD [Primary Care Provider] - 1-2 days Activity/Diet/Wound Care/Special Instructions: Transfer to [facility]
== END 2018-08-08 14:40 | disposition short-term general hospital (02) | DRG 445 ==
LOC: EC 11:57 → 4SSUR 17:00
PROVIDERS: ADMIT Internal Medicine; ATTEND Internal Medicine
PROC: BF37ZZZ Magnetic Resonance Imaging (MRI) of Pancreas (ICD-10-PCS; principal; 2018-08-07)
DX: K83.1 Obstruction of bile duct (principal); J98.11 Atelectasis; K92.1 Melena; D62 Acute posthemorrhagic anemia; C78.7 Secondary malignant neoplasm of liver and intrahepatic bile duct; N28.1 Cyst of kidney, acquired; K86.9 Disease of pancreas, unspecified; K80.20 Calculus of gallbladder without cholecystitis without obstruction; E11.9 Type 2 diabetes mellitus without complications; I10 Essential (primary) hypertension; I25.10 Atherosclerotic heart disease of native coronary artery without angina pectoris; K57.30 Diverticulosis of large intestine without perforation or abscess without bleeding; N20.0 Calculus of kidney; K21.9 Gastro-esophageal reflux disease without esophagitis; E66.9 Obesity, unspecified; Z68.26 Body mass index [BMI] 26.0-26.9, adult; E78.5 Hyperlipidemia, unspecified; Z79.82 Long term (current) use of aspirin; Z79.4 Long term (current) use of insulin; Z79.899 Other long term (current) drug therapy; Z87.442 Personal history of urinary calculi; Z87.19 Personal history of other diseases of the digestive system; Z90.49 Acquired absence of other specified parts of digestive tract; Z95.1 Presence of aortocoronary bypass graft; Z87.448 Personal history of other diseases of urinary system; Z86.010 Personal history of colon polyps; Z80.1 Family history of malignant neoplasm of trachea, bronchus and lung; Z80.0 Family history of malignant neoplasm of digestive organs
CPT/HCPCS: 36415; 74177; 74181; 76705; 80053; 80074; 81001; 82105; 82150; 82272; 82378; 83036; 83690; 85025; 85610; 85730; 86301; 86850; 86900; 86901; 87086; 96360; 96361; 99285

== ENCOUNTER → 2020-03-03 | Outpatient (CLI) | payer MEDICARE ==
--- NOTE | 2020-03-03 14:59 | CT ---
EXAMINATION TYPE: CT abdomen pelvis w con DATE OF EXAM: 03/03/2020 COMPARISON: 08/06/2018 HISTORY: 69-year-old male pancreatic cancer TECHNIQUE: Contiguous axial scanning of the abdomen and pelvis following administration of 100 ml Iso luh 300 IV contrast. Delayed images through the kidneys and coronal/sagittal reconstructions perform ed. CT DLP: 631.2 mGycm Automated exposure control for dose reduction was used. FINDINGS: Heart upper limits of normal size without pericardial effusion. Hazy dependent atelectasis particular ly at the left base. No pleural effusion. Approximately 7 hepatic lesions with heterogeneous enhancement and some with central low density. Mos t of these were present previously and have increased in size. Largest in the left liver lobe measure s 4.1 cm versus 2.5 cm, previously. 2 adjacent lesions in the peripheral right liver lobe measure 2.7 and 2.9 cm versus 2.2 and 1.7 cm, previously, respectively. New pneumobilia with a new metallic biliary stent. Portal venous system appears patent. Gallbladder shows nodular area of density along the inferior wall measuring 2.1 cm. Adrenal glands appear within normal limits. Bilateral nephrolithiasis, approximately 11 calculi on the right, largest measuring 1.1 cm. Stable cy sts measuring up to 2.6 cm on the right. 6 nonobstructive calculi on the left with redemonstrated cortical cysts measuring up to 2.4 cm. Spleen shows a focus of enhancement at the upper pole measuring 1.0 cm versus 8 mm, previously. Redemonstrated heterogeneous mass of the pancreatic body. Refer to axial images 56 and 57 and coronal image 55. This measures 6.3 cm wide and 2.9 cm AP versus possibly 3.2 cm wide, previously. There is abutment of the portal venous confluence without evident invasion. New 8 mm anterior peripancreatic lymph node. 9 mm posterior peripancreatic lymph node redemonstrated. The gastroduodenal lymph node measures 1.6 cm thick now versus 1.2 cm, previously. No dilated small bowel, free fluid, or free air. No other mesenteric or retroperitoneal lymphadenopat hy. Moderate stool burden. Left-sided colonic diverticulosis, more extensive within the sigmoid colon Moderate to severe bladder wall thickening with some mild perivesicular fat stranding. This seems to be mild dilatation of the distal left ureter with a new 1.0 cm calculus along the distal left ureter. Prostatomegaly at 5.5 cm wide with diffuse heterogeneous enhancement. Soft tissue extending at the po sterior bladder base with enhancement measuring 2.4 cm, axial image 138. No abnormal fluid collection in the pelvis or pelvic lymphadenopathy. Bones: Degenerative changes right SI joint osseous destructive process. IMPRESSION: 1. PANCREATIC BODY CARCINOMA INCREASED IN SIZE FROM 08/06/2018 MEASURING 6.3 X 2.9 CM VERSUS 3.2 CM, PREVIOUSLY. THERE IS ABUTMENT OF THE PORTAL VENOUS CONFLUENCE WITHOUT EVIDENT VASCULAR INVASION. 2. A PERIPANCREATIC LYMPH NODE AND GASTRODUODENAL LYMPH NODE HAS SLIGHTLY INCREASED IN SIZE MEASURING UP TO 1.6 CM SHORT AXIS VERSUS 1.2 CM, PREVIOUSLY. 3. SEVEN HETEROGENEOUSLY ENHANCING HEPATIC LESIONS HAVE INCREASED IN SIZE FROM 2018. A COUPLE ARE NEW . LARGEST MEASURES 4.1 CM IN THE LEFT LOBE VERSUS 2.5 CM, PREVIOUSLY. 4. A 1 CM ENHANCING LESION IN THE UPPER POLE OF THE SPLEEN INCREASED IN SIZE FROM 8 MM, ALSO SUSPICIO US. 5. EQUIVOCAL 2.1 CM NODULAR DENSITY ALONG THE INFERIOR WALL OF THE GALLBLADDER COULD BE TUMEFACTIVE S LUDGE OR A GALLBLADDER WALL METASTASIS. 6. PROSTATOMEGALY WITH HETEROGENEOUS ENHANCEMENT AND ADDITIONAL ENHANCING SOFT TISSUE EXTENDING INTO THE POSTERIOR BLADDER BASE. CORRELATE FOR BPH AND/OR UNDERLYING PROSTATE CANCER. 7. INCREASING CIRCUMFERENTIAL BLADDER WALL THICKENING COULD REPRESENT CHRONIC BLADDER WALL HYPERTROPH Y FROM OUTLET OBSTRUCTION VERSUS CYSTITIS. 8. A 1 CM CALCULUS IN THE DISTAL LEFT URETER WITHOUT ANY SIGNIFICANT OBSTRUCTIVE UROPATHY. ADDITIONAL BILATERAL NONOBSTRUCTIVE NEPHROLITHIASIS MEASURING UP TO 1.1 CM. 9. LEFT-SIDED COLONIC DIVERTICULOSIS. NEW PNEUMOBILIA WITH INDWELLING METALLIC BILIARY STENT.
== END | disposition home or self-care (01) ==
LOC: RADCTMAIN 12:07
PROVIDERS: ATTEND Nurse Practitioner Family
DX: N40.0 Benign prostatic hyperplasia without lower urinary tract symptoms (principal); K57.30 Diverticulosis of large intestine without perforation or abscess without bleeding; N20.0 Calculus of kidney; N32.89 Other specified disorders of bladder; C25.2 Malignant neoplasm of tail of pancreas; Z85.07 Personal history of malignant neoplasm of pancreas
CPT/HCPCS: 74177; 36415; Q9967

== ENCOUNTER 2023-03-31 09:30 | Inpatient (IN) | payer MEDICARE ==
[2023-03-31] MEDS ORDERED: NITROGLYCERIN OINT 1 INCH/GM PACKET TOPICAL STA (09:43)
--- NOTE | 2023-03-31 09:46 | ED ---
General Adult HPI - General Chief complaint: Chest Pain Stated complaint: Chest Pain Time Seen by Provider: 03/31/23 09:36 Source: patient, family, EMS, RN notes reviewed Mode of arrival: EMS Limitations: no limitations - History of Present Illness Initial comments: Patient is a pleasant 72-year-old male presenting to the emergency Department with chest discomfort. Onset of symptoms was around 3 or 4 hours ago. Patient states discomfort felt like tightness and was somewhat severe. No radiation. Patient does have history of similar symptoms years ago associated with cardiac disease. Patient is near symptom-free now with aspirin and nitroglycerin by EMS. Patient did have some associated sweating. Patient had a normal dyspnea. No nausea. 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 - Related Data Home Medications Medication Instructions Recorded Confirmed Atorvastatin Calcium [Lipitor] 10 mg PO HS 09/10/14 08/06/18 Aspirin EC [Ecotrin Low Dose] 81 mg PO HS 05/03/16 08/06/18 L.acidoph,Paracasei, B.lactis 1 cap PO HS 12/12/16 08/06/18 [Probiotic] Insulin Detemir [Levemir Flextouch] 20 units SQ DAILY 08/06/18 08/06/18 diphenhydrAMINE HCL [Benadryl] 25 mg PO DAILY 08/06/18 08/06/18 lisinopriL [Zestril] 2.5 mg PO DAILY 08/06/18 08/06/18 sitaGLIPtin PHOS/metFORMIN HCL 1 tab PO DAILY 08/06/18 08/06/18 [Janumet Xr 100-1,000 mg Tablet] Allergies Allergy/AdvReac Type Severity Reaction Status Date / Time No Known Allergies Allergy Verified 03/31/23 09:40 Review of Systems ROS Statement: Those systems with pertinent positive or pertinent negative responses have been documented in the HPI. ROS Other: All systems not noted in ROS Statement are negative. Constitutional: Denies: fever Eyes: Denies: eye pain ENT: Denies: ear pain Respiratory: Reports: as per HPI Cardiovascular: Reports: as per HPI, chest pain Endocrine: Denies: fatigue Gastrointestinal: Denies: abdominal pain Genitourinary: Denies: dysuria Musculoskeletal: Denies: back pain Past Medical History Past Medical History: Coronary Artery Disease (CAD), Chest Pain / Angina, GERD/Reflux, Hyperlipidemia, Renal Disease Additional Past Medical History / Comment(s): pt wants a flu vaccine this admit. nephrolithiasis History of Any Multi-Drug Resistant Organisms: None Reported Past Surgical History: Appendectomy, Coronary Bypass/CABG, Heart Catheterization Additional Past Surgical History / Comment(s): 07/1999 cabg (5 vessels), colonoscopies with polypectomies, lithotripsy, hemorrhoidectomy Past Anesthesia/Blood Transfusion Reactions: No Reported Reaction Past Psychological History: No Psychological Hx Reported Smoking Status: Never smoker Past Alcohol Use History: Rare Past Drug Use History: None Reported - Past Family History Father Family Medical History: Cancer Additional Family Medical History / Comment(s): Father had lung cancer. He was a heavy drinker. He at the age of 65yrs. Mother Family Medical History: Cancer Additional Family Medical History / Comment(s): Mother of stomach cancer at the age of 82/83 yrs. Sister(s) Additional Family Medical History / Comment(s): Patient has 1 sister with no major medical problems. Patient has one son with no major medical problems. General Exam Limitations: no limitations General appearance: alert, in no apparent distress Head exam: Present: normocephalic Eye exam: Present: normal appearance Neck exam: Present: normal inspection Respiratory exam: Present: normal lung sounds bilaterally. Absent: chest wall tenderness Cardiovascular Exam: Present: regular rate, normal rhythm Expanded Peripheral pulses: 2+: Radial (R), Radial (L), Posterior Tibialis (R), Posterior Tibialis (L) GI/Abdominal exam: Present: soft. Absent: distended, tenderness Extremities exam: Present: normal inspection. Absent: pedal edema, calf tenderness Neurological exam: Present: alert Psychiatric exam: Present: normal affect, normal mood Skin exam: Present: normal color Course Vital Signs 03/31/23 03/31/23 09:36 10:40 Temperature 98.1 F Pulse Rate 57 L 53 L Respiratory 18 18 Rate Blood Pressure 151/79 149/83 O2 Sat by Pulse 96 97 Oximetry EKG Findings - EKG Results: EKG: interpreted by ERMD (Right axis. Inferior Q waves. Borderline right bundle aj block. Nonspecific ST-T.), sinus rhythm EKG shows: bradycardia Medical Decision Making - Medical Decision Making Was pt. sent in by a medical professional or institution (Dr., PA, COST ACCOUNTING ANALYST, urgent care, hospital, or prison...) When possible be specific @ -[No] Did you speak to anyone other than the patient for history (EMS, parent, family, police, friend...)? What history was obtained from this source @ - is present and helps but history including history of tumor Did you review nursing and triage notes (agree or disagree)? Why? @ -[I reviewed and agree with nursing and triage notes] Were old charts reviewed (outside hosp., previous admission, EMS record, old EKG, old radiological studies, urgent care reports/EKG's, prison records)? Report findings @ -[No old charts were reviewed] Differential Diagnosis (chest pain, altered mental status, abdominal pain women, abdominal pain men, vaginal bleeding, weakness, fever, dyspnea, syncope, headache, dizziness, GI bleed, back pain, seizure, CVA, palpatations, mental health)? @ -Differential Chest Pain: Stable Angina, Unstable Angina, STEMI, NSTEMI Aortic Dissection, Pneumothorax, Musculoskeletal, Esophageal Spasm GERD, Cholecystitis, Pancreatitis, Zoster, this is not meant to be an all-inclusive list. EKG interpreted by me (3pts min.). @ -[As above] X-rays interpreted by me (1pt min.). @ -Chest x-ray shows no acute process CT interpreted by me (1pt min.). @ -[None done] U/S interpreted by me (1pt. min.). @ -[None done] What testing was considered but not performed or refused? (CT, X-rays, U/S, labs)? Why? @ -[None] What meds were considered but not given or refused? Why? @ -[None] Did you discuss the management of the patient with other professionals (professionals i.e. CORONA Elkins, COST ACCOUNTING ANALYST, lab, RT, psych nurse, high school social studies tutor, make ready mechanic, teacher, chief security officer, adult protective caseworker)? Give summary @ -Case was discussed with Dr. Pacheco with [facility], who will admit For Dr. Beltre Was smoking cessation discussed for >3mins.? @ -[No] Was critical care preformed (if so, how long)? @ -[33 minutes of critical care time] Were there social determinants of health that impacted care today? How? (Homelessness, low income, unemployed, alcoholism, drug addiction, transportation, low edu. Level, literacy, decrease access to med. care, senior care, rehab)? @ -[No] Was there de-escalation of care discussed even if they declined (Discuss DNR or withdrawal of care, Hospice)? DNR status @ -[No] What co-morbidities impacted this encounter? (DM, HTN, Smoking, COPD, CAD, Cancer, CVA, ARF, Chemo, Hep., AIDS, mental health diagnosis, sleep apnea, mo rbid obesity)? @ -[None] Was patient admitted / discharged? Hospital course, mention meds given and route, prescriptions, significant lab abnormalities, going to OR and other pertinent info. @ -Patient reevaluated and remained symptom-free. Patient and family updated on results and plan. Patient will be admitted with cardiology consult. Cardiology has been paged Undiagnosed new problem with uncertain prognosis? @ -[No] Drug Therapy requiring intensive monitoring for toxicity (Heparin, Nitro, Insulin, Cardizem)? @ -[No] Were any procedures done? @ -[No] Diagnosis/symptom? @ -NSTEMI acute Acute, or Chronic, or Acute on Chronic? @ -[acute ] Uncomplicated (without systemic symptoms) or Complicated (systemic symptoms)? @ -[default] Side effects of treatment? @ -[No] Exacerbation, Progression, or Severe Exacerbation? @ -[No] Poses a threat to life or bodily function? How? (Chest pain, USA, DC, pneumonia, PE, COPD, DKA, ARF, appy, cholecystitis, CVA, Diverticulitis, Homicidal, Suicidal, threat to staff... and all critical care pts) @ -[No] - Lab Data Result diagrams: 03/31/23 09:48 03/31/23 09:48 Lab Results 03/31/23 03/31/23 03/31/23 Range/Units 09:48 09:48 09:48 WBC 7.9 (3.8-10.6) k/uL RBC 4.40 (4.30-5.90) m/uL Hgb 12.9 L (13.0-17.5) gm/dL Hct 38.2 L (39.0-53.0) % MCV 86.8 (80.0-100.0) fL MCH 29.2 (25.0-35.0) pg MCHC 33.7 (31.0-37.0) g/dL RDW 13.8 (11.5-15.5) % Plt Count 169 (150-450) k/uL MPV 9.3 Neutrophils % 84 % Lymphocytes % 9 % Monocytes % 5 % Eosinophils % 1 % Basophils % 0 % Neutrophils # 6.6 (1.3-7.7) k/uL Lymphocytes # 0.7 L (1.0-4.8) k/uL Monocytes # 0.4 (0-1.0) k/uL Eosinophils # 0.0 (0-0.7) k/uL Basophils # 0.0 (0-0.2) k/uL PT 10.8 (9.0-12.0) sec INR 1.0 (<1.2) APTT 21.9 L (22.0-30.0) sec Sodium 135 L (137-145) mmol/L Potassium 3.9 (3.5-5.1) mmol/L Chloride 108 H (98-107) mmol/L Carbon Dioxide 20 L (22-30) mmol/L Anion Gap 7 mmol/L BUN 21 H (9-20) mg/dL Creatinine 1.15 (0.66-1.25) mg/dL Est GFR (CKD-EPI)AfAm 73 (>60 ml/min/1.73 sqM) Est GFR (CKD-EPI)NonAf 63 (>60 ml/min/1.73 sqM) Glucose 165 H (74-99) mg/dL Calcium 8.7 (8.4-10.2) mg/dL Magnesium 1.4 L (1.6-2.3) mg/dL Total Bilirubin 0.7 (0.2-1.3) mg/dL AST 87 H (17-59) U/L ALT 28 (4-49) U/L Alkaline Phosphatase 135 H (38-126) U/L Troponin I (0.000-0.034) ng/mL Total Protein 6.3 (6.3-8.2) g/dL Albumin 3.5 (3.5-5.0) g/dL Amylase 44 (30-110) U/L Lipase 16 L (23-300) U/L 03/31/23 Range/Units 09:48 WBC (3.8-10.6) k/uL RBC (4.30-5.90) m/uL Hgb (13.0-17.5) gm/dL Hct (39.0-53.0) % MCV (80.0-100.0) fL MCH (25.0-35.0) pg MCHC (31.0-37.0) g/dL RDW (11.5-15.5) % Plt Count (150-450) k/uL MPV Neutrophils % % Lymphocytes % % Monocytes % % Eosinophils % % Basophils % % Neutrophils # (1.3-7.7) k/uL Lymphocytes # (1.0-4.8) k/uL Monocytes # (0-1.0) k/uL Eosinophils # (0-0.7) k/uL Basophils # (0-0.2) k/uL PT (9.0-12.0) sec INR (<1.2) APTT (22.0-30.0) sec Sodium (137-145) mmol/L Potassium (3.5-5.1) mmol/L Chloride (98-107) mmol/L Carbon Dioxide (22-30) mmol/L Anion Gap mmol/L BUN (9-20) mg/dL Creatinine (0.66-1.25) mg/dL Est GFR (CKD-EPI)AfAm (>60 ml/min/1.73 sqM) Est GFR (CKD-EPI)NonAf (>60 ml/min/1.73 sqM) Glucose (74-99) mg/dL Calcium (8.4-10.2) mg/dL Magnesium (1.6-2.3) mg/dL Total Bilirubin (0.2-1.3) mg/dL AST (17-59) U/L ALT (4-49) U/L Alkaline Phosphatase (38-126) U/L Troponin I 5.340 H* (0.000-0.034) ng/mL Total Protein (6.3-8.2) g/dL Albumin (3.5-5.0) g/dL Amylase (30-110) U/L Lipase (23-300) U/L Critical Care Time Critical Care Time: Yes Total Critical Care Time: 33 Disposition Clinical Impression: Acute non-ST elevation myocardial infarction (NSTEMI) Disposition: ADMITTED IP TO THIS HOSP Is patient prescribed a controlled substance at d/c from ED?: No Referrals: Ben Beltre MD [Primary Care Provider] - 1-2 days Time of Disposition: 10:51
[2023-03-31 09:59] LABS: Basophils % (A) 0 %; Eosinophils % (A) 1 %; HCT 38.2 % (39.0-53.0); HGB 12.9 gm/dL (13.0-17.5); Lymphocytes # (A) 0.7 k/uL (1.0-4.8); Lymphocytes % (A) 9 %; MCH 29.2 pg (25.0-35.0); MCHC 33.7 g/dL (31.0-37.0); MCV 86.8 fL (80.0-100.0); Mean Platelet Volume 9.3; Monocytes # (A) 0.4 k/uL (0-1.0); Monocytes % (A) 5 %; Neutrophils # (A) 6.6 k/uL (1.3-7.7); Neutrophils % (A) 84 %; Platelet Count 169 k/uL (150-450); RDW 13.8 % (11.5-15.5); WBC 7.9 k/uL (3.8-10.6)
[2023-03-31 10:09] LABS: ALT 28 U/L (4-49); AST 87 U/L (17-59); African American GFR (CKD) 73 (>60 ml/min/1.73 sqM); Albumin 3.5 g/dL (3.5-5.0); Alkaline Phosphatase 135 U/L (38-126); Amylase 44 U/L (30-110); Anion Gap 7 mmol/L; Blood Urea Nitrogen 21 mg/dL (9-20); Calcium 8.7 mg/dL (8.4-10.2); Carbon Dioxide 20 mmol/L (22-30); Chloride 108 mmol/L (98-107); Glucose 165 mg/dL (74-99); Lipase 16 U/L (23-300); Magnesium 1.4 mg/dL (1.6-2.3); Non-African American GFR(CKD) 63 (>60 ml/min/1.73 sqM); Potassium 3.9 mmol/L (3.5-5.1); Sodium 135 mmol/L (137-145); Total Bilirubin 0.7 mg/dL (0.2-1.3); Total Protein 6.3 g/dL (6.3-8.2)
[2023-03-31 10:18] LABS: Partial Thromboplastin Time 21.9 sec (22.0-30.0); Prothrombin Time 10.8 sec (9.0-12.0)
--- NOTE | 2023-03-31 10:23 | XR ---
EXAMINATION TYPE: XR chest 2V DATE OF EXAM: 03/31/2023 COMPARISON: 12/22/2016 HISTORY: Shortness of breath TECHNIQUE: Frontal and lateral views of the chest are obtained. FINDINGS: Scattered senescent parenchymal changes noted. No evidence for infiltrate. No evidence for atelectasis. Heart size is stable. Mediastinal structures are stable and grossly unremarkable. No evidence for hilar prominence. Degenerative changes dorsal spine. IMPRESSION: 1. No evidence for acute pulmonary disease.
[2023-03-31] MEDS ORDERED: HEPARIN SODIUM 1,000 UN/ML (10ML VL) IV ONE (10:37)
[2023-03-31] MEDS ORDERED: HEPARIN SODIUM 1,000 UN/ML (10ML VL) IV PRN (10:37)
[2023-03-31] MEDS ORDERED: NITROGLYCERIN SL TABS 0.4 MG TAB SUBLINGUAL PRN (10:51)
[2023-03-31] MEDS ORDERED: ATORVASTATIN 80 MG TAB PO SCH (11:00)
[2023-03-31] MEDS: HEPARIN SOD,PORK IN 0.45% NACL 25,000 UNIT in 0.45% NACL 1 250ML.BAG IV SCH (11:16)
[2023-03-31] MEDS ORDERED: MAGNESIUM SULFATE-D5W PMX 1 GM in DEXTROSE/WATER 1 100ML.BAG IVPB ONE (11:46)
--- NOTE | 2023-03-31 12:02 | P.CRDCN ---
History of Present Illness History of present illness: This is Dr. 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 This lasted for about 15 minutes or so Last night he felt discomfort in the chest and local up by. It lasted for about 30 minutes Subsequently he would have pain off and on and therefore came to the emergency room this morning His twelve-lead EKG shows sinus mechanism normal VT interval pulse rate in the 50s small Q waves in the inferior leads, poor R-wave progression, likely septal infarct old 0.[address] segment abnormality in the inferior leads He had somewhat similar changes many years back Currently pain-free after receiving nitroglycerin He quickly responded to nitroglycerin and is pain-free at this time 9 no dizziness no lightheadedness He is noted his blood sugars are elevated He is a neuroendocrine tumor of the pancreas with secondary hyperglycemia Stable metastasis to the liver on treatment for this Many years back, possibly 2008 he had coronary artery bypass grafting for multivessel coronary artery disease He has hypertension and takes losartan and amlodipine. He also takes a baby aspirin His physicians at [facility] held atorvastatin since he had tumors in his liver We recently asked him to start it back up again and sent a prescription. 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 EXAMINATION: Pulse rate in the 50s, afebrile, blood pressure 151/79 mmHg line breath sounds are reduced bilaterally Normal heart sounds no murmurs No lower extremity edema REVIEW OF LABS, ECG & MEDICAL DATA Home medications include amlodipine 5 mg once daily, aspirin 81 mg daily, losartan 50 mg once daily Insulin, octreotide, glucagon nasal spray, Everolimus 5 mg for secondary Endocrine tumor of the liver, primary in the pancreas Patient has a history of coronary artery disease status post coronary artery bypass grafting greater than 10 years back He does not follow with any senior analytic consultant at this time History of hypertension Atorvastatin was held on account of his history of tumors He has a neuroendocrine tumor of the pancreas with metastasis to the liver I don't have the exact diagnosis at this time However his recent CT scan showed an increase in the mass in the pancreas. The sizes 6 X 4.7 Peripancreatic lymph nodes 1.8 cm Stable hepatic metastasis No clear-cut metastatic disease within the chest Hemoglobin 12.9, hematocrit 38.2 normal white count, normal platelet count 269,0 00 Sodium 135, potassium 3.9, chloride 108, BUN 21 and creatinine 1.15 Glucose was 65 Magnesium 1.4 Lipase 16 AST 87 and ALT 28 and alkaline phosphatase 135 Troponin 5.3 Past Medical History Past Medical History: Coronary Artery Disease (CAD), Chest Pain / Angina, GERD/Reflux, Hyperlipidemia, Renal Disease Additional Past Medical History / Comment(s): pt wants a flu vaccine this admit. nephrolithiasis History of Any Multi-Drug Resistant Organisms: None Reported Past Surgical History: Appendectomy, Coronary Bypass/CABG, Heart Catheterization Additional Past Surgical History / Comment(s): 07/1999 cabg (5 vessels), colonos copies with polypectomies, lithotripsy, hemorrhoidectomy Past Anesthesia/Blood Transfusion Reactions: No Reported Reaction Past Psychological History: No Psychological Hx Reported Smoking Status: Never smoker Past Alcohol Use History: Rare Past Drug Use History: None Reported - Past Family History Father Family Medical History: Cancer Additional Family Medical History / Comment(s): Father had lung cancer. He was a heavy drinker. He at the age of 65yrs. Mother Family Medical History: Cancer Additional Family Medical History / Comment(s): Mother of stomach cancer at the age of 82/83 yrs. Sister(s) Additional Family Medical History / Comment(s): Patient has 1 sister with no major medical problems. Patient has one son with no major medical problems. Medications and Allergies Home Medications Medication Instructions Recorded Confirmed Type Atorvastatin Calcium [Lipitor] 10 mg PO HS 09/10/14 03/31/23 History Aspirin EC [Ecotrin Low Dose] 81 mg PO DAILY 05/03/16 03/31/23 History EPINEPHrine (Auto Inject) [Epipen] 0.3 mg IM ONCE PRN 03/31/23 03/31/23 History Everolimus 5 mg PO DAILY 03/31/23 03/31/23 History Gabapentin [Neurontin] 100 mg PO TID 03/31/23 03/31/23 History Glucagon [Baqsimi] 1 spray NASAL ONCE PRN 03/31/23 03/31/23 History Insulin Aspart [NovoLOG Flexpen] 3 - 7 units SQ TID-W/MEALS 03/31/23 03/31/23 History Insulin Degludec [Tresiba 10 units SQ DAILY 03/31/23 03/31/23 History Flextouch U-100 Pen] Loratadine [Claritin] 10 mg PO DAILY 03/31/23 03/31/23 History Losartan [Cozaar] 50 mg PO DAILY 03/31/23 03/31/23 History Octreotide Lar [SandoSTATIN LAR] 30 mg IM Q28D 03/31/23 03/31/23 History amLODIPine [Norvasc] 5 mg PO DAILY 03/31/23 03/31/23 History Allergies Allergy/AdvReac Type Severity Reaction Status Date / Time No Known Allergies Allergy Verified 03/31/23 11:33 Physical Exam Vitals: Vital Signs Temp Pulse Resp BP Pulse Ox 03/31/23 10:40 53 L 18 149/83 97 03/31/23 09:36 98.1 F 57 L 18 151/79 96 Intake and Output 03/30/23 03/31/23 03/31/23 22:59 06:59 14:59 Other: Weight 70.307 kg Results 03/31/23 09:48 03/31/23 09:48 Cardiac Enzymes 03/31/23 03/31/23 Range/Units 09:48 09:48 AST 87 H (17-59) U/L Troponin I 5.340 H* (0.000-0.034) ng/mL Coagulation 03/31/23 Range/Units 09:48 PT 10.8 (9.0-12.0) sec APTT 21.9 L (22.0-30.0) sec CBC 03/31/23 Range/Units 09:48 WBC 7.9 (3.8-10.6) k/uL RBC 4.40 (4.30-5.90) m/uL Hgb 12.9 L (13.0-17.5) gm/dL Hct 38.2 L (39.0-53.0) % Plt Count 169 (150-450) k/uL Comprehensive Metabolic Panel 03/31/23 Range/Units 09:48 Sodium 135 L (137-145) mmol/L Potassium 3.9 (3.5-5.1) mmol/L Chloride 108 H (98-107) mmol/L Carbon Dioxide 20 L (22-30) mmol/L BUN 21 H (9-20) mg/dL Creatinine 1.15 (0.66-1.25) mg/dL Glucose 165 H (74-99) mg/dL Calcium 8.7 (8.4-10.2) mg/dL AST 87 H (17-59) U/L ALT 28 (4-49) U/L Alkaline Phosphatase 135 H (38-126) U/L Total Protein 6.3 (6.3-8.2) g/dL Albumin 3.5 (3.5-5.0) g/dL Current Medications Generic Name Dose Route Start Last Admin Trade Name Freq PRN Reason Stop Dose Admin Atorvastatin Calcium 40 mg 04/01/23 09:00 Atorvastatin 40 Mg Tab PO DAILY [facility] Heparin Sodium (Porcine) 0 unit 03/31/23 10:37 Heparin Sodium 1,000 Un/Ml (10ml Vl) IV PER PROTOCOL PRN Low PTT Protocol Heparin Sodium/Sodium Chloride 250 mls @ 8.437 mls/hr 03/31/23 10:45 03/31/23 11:16 25,000 unit/ Sodium Chloride IV 12 units/kg/hr .Q24H LUIS ENRIQUE 8.437 mls/hr Administration Protocol 12 UNITS/KG/HR Magnesium Sulfate/Dextrose 1 100 mls @ 100 mls/hr 03/31/23 11:46 gm/ IV Solution IVPB 03/31/23 12:45 ONCE ONE Losartan Potassium 50 mg 04/01/23 09:00 Losartan 50 Mg Tab PO DAILY [facility] Magnesium Oxide 400 mg 04/01/23 09:00 Magnesium Oxide 400 Mg Tab PO DAILY [facility] Nitroglycerin 0.4 mg 03/31/23 10:51 Nitroglycerin Sl Tabs 0.4 Mg Tab SUBLINGUAL Q5M PRN Chest Pain Nitroglycerin 1 inch 03/31/23 12:00 Nitroglycerin Oint 1 Inch/Gm Packet TOPICAL Q6HR LUIS ENRIQUE Intake and Output 03/30/23 03/31/23 03/31/23 22:59 06:59 14:59 Other: Weight 70.307 kg Patient Weight 04/01/23 06:59 Weight 70.307 kg 03/31/23 09:48 03/31/23 09:48
[2023-03-31] MEDS: NITROGLYCERIN OINT 1 INCH/GM PACKET TOPICAL SCH ×3 (12:22→23:13)
[2023-03-31] MEDS: CLOPIDOGREL 75 MG TAB PO SCH (12:42)
--- NOTE | 2023-03-31 13:34 | P.HPIM ---
History of Present Illness H&P Date: 03/31/23 History of present illness; patient is 72-year-old gentleman with past medical history significant for coronary disease status post CABG who presented to the ER because of chest pain. Patient stated that he started experiencing chest pressure on Saturday night after visiting a concert. Chest pressure was central in location, radiating to right arm, intermittent, not aggravated by any movement. Patient did complain of shortness of breath and diaphoresis that time. Patient had episode of chest pressure last night that lasted 30 minutes. This morning patient again had this chest pressure at that time patient had come to the ER. Denies any swelling of feet. Denies any orthopnea or PND. Initial lab work done in the ER showed WBC 7.9, hemoglobin 12.9, sodium 135, potassium 3.9, BUN 21, creatinine 1.15, initial troponin 5.3 Chest x-ray negative for acute pulmonary process Initial EKG done showed no ST segment elevation, did show Q waves in the inferior leads. Patient was admitted to medicine service REVIEW OF SYSTEMS: CONSTITUTIONAL: No fever, no malaise, no fatigue. HEENT: No recent visual problems or hearing problems. Denied any sore throat. CARDIOVASCULAR: As mentioned in HPI PULMONARY: No shortness of breath, no cough, no hemoptysis. GASTROINTESTINAL: No diarrhea, no nausea, no vomiting, no abdominal pain. NEUROLOGICAL: No headaches, no weakness, no numbness. HEMATOLOGICAL: Denies any bleeding or petechiae. GENITOURINARY: Denies any burning micturition, frequency, or urgency. MUSCULOSKELETAL/RHEUMATOLOGICAL: Denies any joint pain, swelling, or any muscle pain. ENDOCRINE: Denies any polyuria or polydipsia. The rest of the 14-point review of systems is negative. PHYSICAL EXAMINATION: GENERAL: The patient is alert and oriented x3, not in any acute distress. Well developed, well nourished. HEENT: Pupils are round and equally reacting to light. EOMI. No scleral icterus. No conjunctival pallor. Normocephalic, atraumatic. No pharyngeal erythema. No thyromegaly. CARDIOVASCULAR: S1 and S2 present. No murmurs, rubs, or gallops. PULMONARY: Chest is clear to auscultation, no wheezing or crackles. ABDOMEN: Soft, nontender, nondistended, normoactive bowel sounds. No palpable organomegaly. MUSCULOSKELETAL: No joint swelling or deformity. EXTREMITIES: No cyanosis, clubbing, or pedal edema. NEUROLOGICAL: Gross neurological examination did not reveal any focal deficits. SKIN: No rashes. Assessment and plan Non-ST elevation [place] Insulin-dependent diabetes mellitus History of coronary disease status post CABG Hypertension History of neuroendocrine tumor of the pancreas Plan; monitor vital signs Monitor CBC Monitor CMP Trend troponins. Continue pharmacy dose heparin Ordered Nitropaste Resume home meds Consult cardiology DVT prophylaxis: Past Medical History Past Medical History: Coronary Artery Disease (CAD), Chest Pain / Angina, GERD/Reflux, Hyperlipidemia, Renal Disease Additional Past Medical History / Comment(s): pt wants a flu vaccine this admit. nephrolithiasis History of Any Multi-Drug Resistant Organisms: None Reported Past Surgical History: Appendectomy, Coronary Bypass/CABG, Heart Catheterization Additional Past Surgical History / Comment(s): 07/1999 cabg (5 vessels), colonoscopies with polypectomies, lithotripsy, hemorrhoidectomy Past Anesthesia/Blood Transfusion Reactions: No Reported Reaction Past Psychological History: No Psychological Hx Reported Smoking Status: Never smoker Past Alcohol Use History: Rare Past Drug Use History: None Reported - Past Family History Father Family Medical History: Cancer Additional Family Medical History / Comment(s): Father had lung cancer. He was a heavy drinker. He at the age of 65yrs. Mother Family Medical History: Cancer Additional Family Medical History / Comment(s): Mother of stomach cancer at the age of 82/83 yrs. Sister(s) Additional Family Medical History / Comment(s): Patient has 1 sister with no major medical problems. Patient has one son with no major medical problems. Medications and Allergies Home Medications Medication Instructions Recorded Confirmed Type Atorvastatin Calcium [Lipitor] 10 mg PO HS 09/10/14 03/31/23 History Aspirin EC [Ecotrin Low Dose] 81 mg PO DAILY 05/03/16 03/31/23 History EPINEPHrine (Auto Inject) [Epipen] 0.3 mg IM ONCE PRN 03/31/23 03/31/23 History Everolimus 5 mg PO DAILY 03/31/23 03/31/23 History Gabapentin [Neurontin] 100 mg PO TID 03/31/23 03/31/23 History Glucagon [Baqsimi] 1 spray NASAL ONCE PRN 03/31/23 03/31/23 History Insulin Aspart [NovoLOG Flexpen] 3 - 7 units SQ TID-W/MEALS 03/31/23 03/31/23 History Insulin Degludec [Tresiba 10 units SQ DAILY 03/31/23 03/31/23 History Flextouch U-100 Pen] Loratadine [Claritin] 10 mg PO DAILY 03/31/23 03/31/23 History Losartan [Cozaar] 50 mg PO DAILY 03/31/23 03/31/23 History Octreotide Lar [SandoSTATIN LAR] 30 mg IM Q28D 03/31/23 03/31/23 History amLODIPine [Norvasc] 5 mg PO DAILY 03/31/23 03/31/23 History Allergies Allergy/AdvReac Type Severity Reaction Status Date / Time No Known Allergies Allergy Verified 03/31/23 11:33 Physical Exam Vitals: Vital Signs Temp Pulse Resp BP Pulse Ox 03/31/23 10:40 53 L 18 149/83 97 03/31/23 09:36 98.1 F 57 L 18 151/79 96 Intake and Output 03/30/23 03/31/23 03/31/23 22:59 06:59 14:59 Other: Weight 70.307 kg Results CBC & Chem 7: 03/31/23 09:48 03/31/23 09:48 Labs: Abnormal Lab Results - Last 24 Hours (Table) 03/31/23 03/31/23 03/31/23 Range/Units 09:48 09:48 09:48 Hgb 12.9 L (13.0-17.5) gm/dL Hct 38.2 L (39.0-53.0) % Lymphocytes # 0.7 L (1.0-4.8) k/uL APTT 21.9 L (22.0-30.0) sec Sodium 135 L (137-145) mmol/L Chloride 108 H (98-107) mmol/L Carbon Dioxide 20 L (22-30) mmol/L BUN 21 H (9-20) mg/dL Glucose 165 H (74-99) mg/dL Magnesium 1.4 L (1.6-2.3) mg/dL AST 87 H (17-59) U/L Alkaline Phosphatase 135 H (38-126) U/L Troponin I (0.000-0.034) ng/mL Lipase 16 L (23-300) U/L 03/31/23 03/31/23 Range/Units 09:48 11:26 Hgb (13.0-17.5) gm/dL Hct (39.0-53.0) % Lymphocytes # (1.0-4.8) k/uL APTT (22.0-30.0) sec Sodium (137-145) mmol/L Chloride (98-107) mmol/L Carbon Dioxide (22-30) mmol/L BUN (9-20) mg/dL Glucose (74-99) mg/dL Magnesium (1.6-2.3) mg/dL AST (17-59) U/L Alkaline Phosphatase (38-126) U/L Troponin I 5.340 H* 11.100 H* (0.000-0.034) ng/mL Lipase (23-300) U/L
[2023-03-31] MEDS ORDERED: DEXTROSE 50% SYRINGE 50 ML IVP PRN ×2 (13:35)
[2023-03-31 17:52] LABS: Glucose,Whole Blood 189 mg/dL (70-110)
[2023-03-31] MEDS: GABAPENTIN 100 MG CAP PO SCH ×2 (17:58→21:29)
[2023-03-31] MEDS: INSULIN ASPART (NovoLOG) 100 UNIT/ML VIAL SQ SCH ×2 (17:59→21:29)
[2023-03-31 21:19] LABS: Glucose,Whole Blood 175 mg/dL (70-110)
[2023-04-01 05:59] LABS: Glucose,Whole Blood 177 mg/dL (70-110)
[2023-04-01] MEDS: NITROGLYCERIN OINT 1 INCH/GM PACKET TOPICAL SCH (06:43)
[2023-04-01] MEDS: INSULIN ASPART (NovoLOG) 100 UNIT/ML VIAL SQ SCH ×4 (06:44→20:59)
[2023-04-01 08:10] LABS: Basophils % (A) 0 %; Eosinophils % (A) 0 %; HCT 39.7 % (39.0-53.0); HGB 12.9 gm/dL (13.0-17.5); Lymphocytes # (A) 0.9 k/uL (1.0-4.8); Lymphocytes % (A) 10 %; MCH 28.2 pg (25.0-35.0); MCHC 32.5 g/dL (31.0-37.0); MCV 86.7 fL (80.0-100.0); Mean Platelet Volume 10.7; Monocytes # (A) 0.8 k/uL (0-1.0); Monocytes % (A) 9 %; Neutrophils % (A) 79 %; Platelet Count 167 k/uL (150-450); RBC 4.58 m/uL (4.30-5.90); RDW 14.1 % (11.5-15.5); WBC 8.9 k/uL (3.8-10.6)
[2023-04-01 08:19] LABS: INR 1.2 (<1.2)
[2023-04-01] MEDS: CLOPIDOGREL 75 MG TAB PO SCH (08:52)
[2023-04-01] MEDS: ATORVASTATIN 40 MG TAB PO SCH (08:53)
[2023-04-01] MEDS: ASPIRIN 81 MG PO SCH (08:53)
[2023-04-01] MEDS: GABAPENTIN 100 MG CAP PO SCH ×3 (08:53→20:59)
[2023-04-01] MEDS: MAGNESIUM OXIDE 400 MG TAB PO SCH (08:53)
[2023-04-01] MEDS: LOSARTAN 50 MG TAB PO SCH (08:53)
[2023-04-01] MEDS ORDERED: ASPIRIN 325 MG TAB PO SCH (09:00)
[2023-04-01] MEDS ORDERED: ALPRAZolam 0.5 MG TAB PO PRN (09:43)
[2023-04-01] MEDS ORDERED: ASPIRIN 325 MG TAB PO STA (09:43)
[2023-04-01] MEDS ORDERED: ATORVASTATIN 80 MG TAB PO STA (09:43)
[2023-04-01] MEDS ORDERED: ALPRAZolam 0.25 MG TAB PO PRN (09:43)
[2023-04-01] MEDS ORDERED: NITROGLYCERIN SL TABS 0.4 MG TAB SUBLINGUAL PRN (09:43)
[2023-04-01] MEDS ORDERED: IV FLUID CONTINUATION 1,000 ML IV ONE (11:00)
[2023-04-01] MEDS ORDERED: MIDAZOLAM 2 MG/2 ML VIAL IV ONE (11:08)
[2023-04-01] MEDS ORDERED: fentaNYL (PF) 50 MCG/ML 2 ML AMP IV ONE (11:08)
[2023-04-01] MEDS ORDERED: LIDOCAINE 1% INJ 10MG/ML (20 ML MDV) SQ ONE (11:12)
--- NOTE | 2023-04-01 11:20 | P.PN ---
Subjective HISTORY OF PRESENT ILLNESS: This is a 72-year-old male who does not follow regularly with a construction assistant. Patient presented to the hospital for chief complaint of chest pain. Patient does have a history of coronary artery disease with previous 5 vessel CABG in 1998. 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 GENERAL: Well-developed in no acute distress. NECK: Supple. No JVD or thyromegaly LUNGS: Respirations even and unlabored. Lungs essentially clear to auscultation bilaterally. HEART: Regular rate and rhythm. S1 and S2 heard. EXTREMITIES: Normal range of motion. No clubbing or cyanosis. Peripheral pulses intact. 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 Morgan Obtain 2-D echo to assess cardiac structure and function Further recommendations pending patient course Nurse practitioner note has been reviewed by physician. Signing provider agrees with the documented findings, assessment, and plan of care. Objective - Vital Signs Vital signs: Vital Signs Temp 98.8 F 04/01/23 08:50 Pulse 74 04/01/23 08:50 Resp 18 04/01/23 08:50 BP 146/75 04/01/23 08:50 Pulse Ox 94 L 04/01/23 10:07 FiO2 Intake & Output 03/31/23 04/01/23 04/01/23 18:59 06:59 18:59 Intake Total 105.041 87.931 Balance 105.041 87.931 Weight 70.307 kg 70.307 kg Intake: Intake, IV Titration 105.041 87.931 Amount Heparin Sod,Pork in 0.45% 105.041 87.931 NaCl 25,000 unit In 0.45 % NaCl 1 250ml.bag @ 12 UNITS/KG/HR 8.437 mls/hr IV .Q24H [facility] Rx#: [id number] Other: # Voids 1 - Labs CBC & Chem 7: 04/01/23 06:51 03/31/23 09:48 Labs: Abnormal Lab Results - Last 24 Hours (Table) 03/31/23 03/31/23 03/31/23 Range/Units 11:26 15:15 16:59 Hgb (13.0-17.5) gm/dL Lymphocytes # (1.0-4.8) k/uL INR (<1.2) APTT 39.8 H (22.0-30.0) sec POC Glucose (mg/dL) (70-110) mg/dL Troponin I 11.100 H* 18.400 H* (0.000-0.034) ng/mL 03/31/23 03/31/23 03/31/23 Range/Units 17:50 21:17 22:40 Hgb (13.0-17.5) gm/dL Lymphocytes # (1.0-4.8) k/uL INR (<1.2) APTT 34.5 H (22.0-30.0) sec POC Glucose (mg/dL) 189 H 175 H (70-110) mg/dL Troponin I (0.000-0.034) ng/mL 04/01/23 04/01/23 04/01/23 Range/Units 05:58 06:51 06:51 Hgb 12.9 L (13.0-17.5) gm/dL Lymphocytes # 0.9 L (1.0-4.8) k/uL INR 1.2 H (<1.2) APTT 39.0 H (22.0-30.0) sec POC Glucose (mg/dL) 177 H (70-110) mg/dL Troponin I (0.000-0.034) ng/mL
[2023-04-01 11:30] LABS: Chol/HDL Ratio 4.05 Ratio; VLDL Calculation 19.04 mg/dL (5.00-40.00)
[2023-04-01] MEDS ORDERED: IOPAMIDOL-370 100ML BTL INJ ONE ×2 (11:30→12:20)
[2023-04-01] MEDS ORDERED: HEPARIN SODIUM 1,000 UN/ML (10ML VL) IV ONE (12:18)
[2023-04-01] MEDS ORDERED: RX INFO: IV CONTRAST WAS GIVEN 1 EACH MISC MISCELLANE PRN (12:34)
--- NOTE | 2023-04-01 12:39 | P.PCN ---
Date of Procedure: 04/01/23 Operative Findings: iFR of the SVG to RCA Performing physician Robin Alanis M.D. Procedure Performed: 1. iFR the SVG to RCA 2. Selective right common femoral artery angiogram Indication: This is a 72-year-old gentleman who is known CAD and known severe triple-vessel status post bypass who presented to the hospital with chest discomfort and was ruled in for acute coronary event. He underwent a heart catheterization by Dr. Morgan and was found to have an intermediate disease involving the SVG to RCA Approach: Right common femoral artery Complications: None Level of Sedation: Moderate with a sedation length of 17 minutes Procedure Discussion: Anticoagulation was initiated using heparin with continuous ACT monitoring. Subsequently and after we zeroed the Doppler wire and equalized between the Doppler wire and guiding catheter which was a L1 guiding catheter we did engage the SVG to RCA and then it was wired using the Doppler wire. We did iFR and that came in to be nonischemic 0.95 Conclusion: Intermediate disease involving the SVG to RCA. iFR was nonischemic and 0.95
[2023-04-01] MEDS ORDERED: SODIUM CHLORIDE 0.9% 1,000 ML IV SCH (12:45)
[2023-04-01 13:07] LABS: Glucose,Whole Blood 178 mg/dL (70-110)
[2023-04-01] MEDS: INSULIN DETEMIR (LEVEMIR) 100 UNIT/ML SYR SQ SCH (13:50)
[2023-04-01] MEDS: SODIUM CHLORIDE 0.9% 1,000 ML in EMPTY BAG 1 BAG IV SCH ×2 (13:51→20:53)
--- NOTE | 2023-04-01 14:39 | P.PN ---
Subjective Progress Note Date: 04/01/23 patient is 72-year-old gentleman with past medical history significant for coronary disease status post CABG who presented to the ER because of chest pain. Patient stated that he started experiencing chest pressure on Saturday night after visiting a concert. Chest pressure was central in location, radiating to right arm, intermittent, not aggravated by any movement. Patient did complain of shortness of breath and diaphoresis that time. Patient had episode of chest pressure last night that lasted 30 minutes. This morning patient again had this chest pressure at that time patient had come to the ER. Denies any swelling of feet. Denies any orthopnea or PND. Initial lab work done in the ER showed WBC 7.9, hemoglobin 12.9, sodium 135, potassium 3.9, BUN 21, creatinine 1.15, initial troponin 5.3 Chest x-ray negative for acute pulmonary process Initial EKG done showed no ST segment elevation, did show Q waves in the inferior leads. Patient was admitted to medicine service 04/01. Patient seen and examined. No acute issues overnight. Vital signs are stable. Currently nothing by mouth for cardiac cath REVIEW OF SYSTEMS: CONSTITUTIONAL: No fever, no malaise,. CARDIOVASCULAR: No chest pain, no palpitations, no syncope. PULMONARY: No shortness of breath, no cough, GASTROINTESTINAL: No diarrhea, no nausea, no vomiting, no abdominal pain. NEUROLOGICAL: No headaches, no weakness, PHYSICAL EXAMINATION: GENERAL: The patient is alert and oriented x3, not in any acute distress. Well developed, well nourished. HEENT: Pupils are round and equally reacting to light. EOMI. No scleral icterus. No conjunctival pallor. Normocephalic, atraumatic. No pharyngeal erythema. No thyromegaly. CARDIOVASCULAR: S1 and S2 present. No murmurs, rubs, or gallops. PULMONARY: Chest is clear to auscultation, no wheezing or crackles. ABDOMEN: Soft, nontender, nondistended, normoactive bowel sounds. No palpable organomegaly. MUSCULOSKELETAL: No joint swelling or deformity. EXTREMITIES: No cyanosis, clubbing, or pedal edema. NEUROLOGICAL: Gross neurological examination did not reveal any focal deficits. SKIN: No rashes. Assessment and plan Non-ST elevation [place] Insulin-dependent diabetes mellitus History of coronary disease status post CABG Hypertension History of neuroendocrine tumor of the pancreas Monitor vital signs Monitor CBC Monitor CMP Continue telemetry monitoring Trend troponins. Continue pharmacy dose heparin Continue aspirin Plavix, Lipitor Continue Nitropaste Continue home meds Follow-up on 2-D echo Currently nothing by mouth going for cardiac cath today Follow-up on cardiology recommendations Objective - Vital Signs Vital signs: Vital Signs Temp 98.8 F 04/01/23 08:50 Pulse 74 04/01/23 08:50 Resp 18 04/01/23 08:50 BP 146/75 04/01/23 08:50 Pulse Ox 92 L 04/01/23 08:50 FiO2 Intake & Output 03/31/23 04/01/23 04/01/23 18:59 06:59 18:59 Intake Total 105.041 87.931 Balance 105.041 87.931 Weight 70.307 kg 70.307 kg Intake: Intake, IV Titration 105.041 87.931 Amount Heparin Sod,Pork in 0.45% 105.041 87.931 NaCl 25,000 unit In 0.45 % NaCl 1 250ml.bag @ 12 UNITS/KG/HR 8.437 mls/hr IV .Q24H [facility] Rx#: [id number] Other: # Voids 1 - Labs CBC & Chem 7: 04/01/23 06:51 03/31/23 09:48 Labs: Abnormal Lab Results - Last 24 Hours (Table) 03/31/23 03/31/23 03/31/23 Range/Units 09:48 09:48 09:48 Hgb 12.9 L (13.0-17.5) gm/dL Hct 38.2 L (39.0-53.0) % Lymphocytes # 0.7 L (1.0-4.8) k/uL INR (<1.2) APTT 21.9 L (22.0-30.0) sec Sodium 135 L (137-145) mmol/L Chloride 108 H (98-107) mmol/L Carbon Dioxide 20 L (22-30) mmol/L BUN 21 H (9-20) mg/dL Glucose 165 H (74-99) mg/dL POC Glucose (mg/dL) (70-110) mg/dL Magnesium 1.4 L (1.6-2.3) mg/dL AST 87 H (17-59) U/L Alkaline Phosphatase 135 H (38-126) U/L Troponin I (0.000-0.034) ng/mL Lipase 16 L (23-300) U/L 03/31/23 03/31/23 03/31/23 Range/Units 09:48 11:26 15:15 Hgb (13.0-17.5) gm/dL Hct (39.0-53.0) % Lymphocytes # (1.0-4.8) k/uL INR (<1.2) APTT (22.0-30.0) sec Sodium (137-145) mmol/L Chloride (98-107) mmol/L Carbon Dioxide (22-30) mmol/L BUN (9-20) mg/dL Glucose (74-99) mg/dL POC Glucose (mg/dL) (70-110) mg/dL Magnesium (1.6-2.3) mg/dL AST (17-59) U/L Alkaline Phosphatase (38-126) U/L Troponin I 5.340 H* 11.100 H* 18.400 H* (0.000-0.034) ng/mL Lipase (23-300) U/L 03/31/23 03/31/23 03/31/23 Range/Units 16:59 17:50 21:17 Hgb (13.0-17.5) gm/dL Hct (39.0-53.0) % Lymphocytes # (1.0-4.8) k/uL INR (<1.2) APTT 39.8 H (22.0-30.0) sec Sodium (137-145) mmol/L Chloride (98-107) mmol/L Carbon Dioxide (22-30) mmol/L BUN (9-20) mg/dL Glucose (74-99) mg/dL POC Glucose (mg/dL) 189 H 175 H (70-110) mg/dL Magnesium (1.6-2.3) mg/dL AST (17-59) U/L Alkaline Phosphatase (38-126) U/L Troponin I (0.000-0.034) ng/mL Lipase (23-300) U/L 03/31/23 04/01/23 04/01/23 Range/Units 22:40 05:58 06:51 Hgb 12.9 L (13.0-17.5) gm/dL Hct (39.0-53.0) % Lymphocytes # 0.9 L (1.0-4.8) k/uL INR (<1.2) APTT 34.5 H (22.0-30.0) sec Sodium (137-145) mmol/L Chloride (98-107) mmol/L Carbon Dioxide (22-30) mmol/L BUN (9-20) mg/dL Glucose (74-99) mg/dL POC Glucose (mg/dL) 177 H (70-110) mg/dL Magnesium (1.6-2.3) mg/dL AST (17-59) U/L Alkaline Phosphatase (38-126) U/L Troponin I (0.000-0.034) ng/mL Lipase (23-300) U/L 04/01/23 Range/Units 06:51 Hgb (13.0-17.5) gm/dL Hct (39.0-53.0) % Lymphocytes # (1.0-4.8) k/uL INR 1.2 H (<1.2) APTT 39.0 H (22.0-30.0) sec Sodium (137-145) mmol/L Chloride (98-107) mmol/L Carbon Dioxide (22-30) mmol/L BUN (9-20) mg/dL Glucose (74-99) mg/dL POC Glucose (mg/dL) (70-110) mg/dL Magnesium (1.6-2.3) mg/dL AST (17-59) U/L Alkaline Phosphatase (38-126) U/L Troponin I (0.000-0.034) ng/mL Lipase (23-300) U/L
[2023-04-01 16:41] LABS: Glucose,Whole Blood 102 mg/dL (70-110)
[2023-04-01 20:39] LABS: Glucose,Whole Blood 169 mg/dL (70-110)
[2023-04-01] MEDS: HEPARIN SOD,PORK IN 0.45% NACL 25,000 UNIT in 0.45% NACL 1 250ML.BAG IV SCH (20:52)
[2023-04-01] MEDS ORDERED: VANCOMYCIN 1,250 MG in SODIUM CHLORIDE 0.9% 250 ML IVPB ONE (23:45)
[2023-04-01] MEDS ORDERED: VANCOMYCIN IV PER PHARMACY 1 EACH MISC MISCELLANE PRN (23:48)
[2023-04-01] MEDS ORDERED: ACETAMINOPHEN TAB 325 MG TAB PO PRN (23:48)
--- NOTE | 2023-04-02 00:33 | XR ---
EXAM: XR Chest, 1 View CLINICAL HISTORY: ITS.REASON XR Reason: fever unknown origin TECHNIQUE: Frontal view of the chest. COMPARISON: No relevant prior studies available. FINDINGS: Lungs: Left basilar airspace opacity, new from prior exam. Right lung is clear. Pleural space: Unremarkable. No pleural effusion or pneumothorax. Heart: Unremarkable. No cardiomegaly or pulmonary vascular congestion. Bones/joints: Previous sternotomy. No acute osseous findings. IMPRESSION: Left basilar airspace opacity, new from prior exam, concerning for pneumonia in the appropriate clinical setting.
[2023-04-02] MEDS: PIPERACILLIN-TAZOBACTAM 3.375 GM in SODIUM CHLORIDE 0.9% 100 ML IVPB SCH ×4 (01:16→17:02)
[2023-04-02 01:25] LABS: Appearance,Urine Clear (Clear); Bilirubin,Urine Negative (Negative); Blood,Urine Small (Negative); Color,Urine Yellow; Glucose,Urine (UA) Trace (Negative); Ketones,Urine Negative (Negative); Leukocyte Esterase,Urine Negative (Negative); Nitrite,Urine Negative (Negative); PH, Urine 5.5 (5.0-8.0); Protein,Urine 1+ (Negative); RBC,Urine 2 /hpf (0-5); Specific Gravity,Urine 1.028 (1.001-1.035); Urobilinogen,Urine <2.0 mg/dL (<2.0); WBC,Urine <1 /hpf (0-5)
[2023-04-02 06:35] LABS: Glucose,Whole Blood 116 mg/dL (70-110)
[2023-04-02] MEDS: INSULIN ASPART (NovoLOG) 100 UNIT/ML VIAL SQ SCH ×4 (06:41→20:57)
[2023-04-02] MEDS ORDERED: HEPARIN SODIUM,PORCINE 2,500 UNIT in SODIUM CHLORIDE 0.9% 250 ML IRRIGATION PRN (07:00)
[2023-04-02] MEDS ORDERED: HEPARIN SODIUM,PORCINE 10,000 UNIT in SODIUM CHLORIDE 0.9% 1,000 ML IRRIGATION PRN (07:00)
[2023-04-02 07:42] LABS: Basophils % (A) 0 %; Eosinophils # (A) 0.1 k/uL (0-0.7); Eosinophils % (A) 1 %; HCT 42.6 % (39.0-53.0); Lymphocytes % (A) 8 %; MCH 28.9 pg (25.0-35.0); MCHC 32.9 g/dL (31.0-37.0); MCV 87.8 fL (80.0-100.0); Mean Platelet Volume 10.5; Monocytes % (A) 8 %; Neutrophils # (A) 9.5 k/uL (1.3-7.7); Neutrophils % (A) 81 %; Platelet Count 159 k/uL (150-450); RBC 4.85 m/uL (4.30-5.90); WBC 11.7 k/uL (3.8-10.6)
[2023-04-02 07:56] LABS: ALT 60 U/L (4-49); AST 250 U/L (17-59); African American GFR (CKD) 59 (>60 ml/min/1.73 sqM); Albumin 3.2 g/dL (3.5-5.0); Alkaline Phosphatase 149 U/L (38-126); Anion Gap 6 mmol/L; Blood Urea Nitrogen 21 mg/dL (9-20); Calcium 8.5 mg/dL (8.4-10.2); Carbon Dioxide 24 mmol/L (22-30); Chloride 106 mmol/L (98-107); Glucose 120 mg/dL (74-99); Magnesium 1.9 mg/dL (1.6-2.3); Non-African American GFR(CKD) 51 (>60 ml/min/1.73 sqM); Potassium 3.7 mmol/L (3.5-5.1); Sodium 136 mmol/L (137-145); Total Bilirubin 0.9 mg/dL (0.2-1.3); Total Protein 5.9 g/dL (6.3-8.2)
[2023-04-02] MEDS: GABAPENTIN 100 MG CAP PO SCH ×3 (08:01→20:58)
[2023-04-02] MEDS: CLOPIDOGREL 75 MG TAB PO SCH (08:01)
[2023-04-02] MEDS: ASPIRIN 81 MG PO SCH (08:01)
[2023-04-02] MEDS: ATORVASTATIN 40 MG TAB PO SCH (08:01)
[2023-04-02] MEDS: MAGNESIUM OXIDE 400 MG TAB PO SCH (08:01)
[2023-04-02] MEDS: LOSARTAN 50 MG TAB PO SCH (08:01)
[2023-04-02] MEDS: METOPROLOL SUCCINATE (ER) 25 MG TAB.ER.24H PO SCH (10:35)
[2023-04-02] MEDS: ISOSORBIDE MONONITRATE ER 30 MG TAB.ER.24H PO SCH (10:35)
[2023-04-02] MEDS: INSULIN DETEMIR (LEVEMIR) 100 UNIT/ML SYR SQ SCH (10:35)
--- NOTE | 2023-04-02 11:20 | P.PN ---
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 Patient presented to the hospital for chief complaint of chest pain. Patient does have a history of coronary artery disease with previous 5 vessel CABG in 1998. 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 Morgan. Patient was found to have intermediate disease of the SVG to RCA. He underwent iFR with Dr. Alanis which was found to be nonischemic at 0.95. Medical management was recommended. Patient examined this morning at the bedside. Denies chest pain or pressure. Denies SOB. Vital signs are stable. Patient spiked a fever yesterday night and was started on antibiotics. WBC this morning 11.7. chest x-ray completed revealing left basilar airspace opacity, new from prior exam, concerning for pneumonia. PHYSICAL EXAM: VITAL SIGNS: Reviewed. GENERAL: Well-developed in no acute distress. NECK: Supple. No JVD or thyromegaly LUNGS: Respirations even and unlabored. Lungs essentially clear to auscultation bilaterally. HEART: Regular rate and rhythm. S1 and S2 heard. EXTREMITIES: Normal range of motion. No clubbing or cyanosis. Peripheral pulses intact. 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 Await results Add Imdur 30 mg daily Add metoprolol succinate 25 mg daily Continue additional cardiac medications Recommend continued antibiotics for possible pneumonia with fever and elevated WBC Further recommendations pending patient course Nurse practitioner note has been reviewed by physician. Signing provider agrees with the documented findings, assessment, and plan of care. Objective - Vital Signs Vital signs: Vital Signs Temp 97.6 F 04/02/23 08:07 Pulse 66 04/02/23 08:07 Resp 16 04/02/23 08:07 BP 127/73 04/02/23 08:07 Pulse Ox 94 L 04/02/23 08:07 FiO2 Intake & Output 06/04/02/23 04/02/23 18:59 06:59 18:59 Intake Total 837.931 240 Output Total 300 Balance 537.931 240 Intake: IV 750 Intake, IV Titration 87.931 Amount Heparin Sod,Pork in 0.45% 87.931 NaCl 25,000 unit In 0.45 % NaCl 1 250ml.bag @ 12 UNITS/KG/HR 8.437 mls/hr IV .Q24H [facility] Rx#: [id number] Oral 240 Output: Urine 300 Other: Voiding Method Toilet Toilet Toilet Urinal Urinal Urinal # Voids 2 3 # Bowel Movements 1 - Labs CBC & Chem 7: 04/02/23 07:16 04/02/23 07:16 Labs: Abnormal Lab Results - Last 24 Hours (Table) 04/01/23 04/01/23 04/01/23 Range/Units 06:51 13:06 20:20 WBC (3.8-10.6) k/uL Neutrophils # (1.3-7.7) k/uL Sodium (137-145) mmol/L BUN (9-20) mg/dL Creatinine (0.66-1.25) mg/dL Glucose (74-99) mg/dL POC Glucose (mg/dL) 178 H 169 H (70-110) mg/dL Hemoglobin A1c 8.0 H (<=6.0) % AST (17-59) U/L ALT (4-49) U/L Alkaline Phosphatase (38-126) U/L Total Protein (6.3-8.2) g/dL Albumin (3.5-5.0) g/dL Urine Protein (Negative) Urine Glucose (UA) (Negative) Urine Blood (Negative) 04/02/23 04/02/23 04/02/23 Range/Units 00:08 06:34 07:16 WBC 11.7 H (3.8-10.6) k/uL Neutrophils # 9.5 H (1.3-7.7) k/uL Sodium (137-145) mmol/L BUN (9-20) mg/dL Creatinine (0.66-1.25) mg/dL Glucose (74-99) mg/dL POC Glucose (mg/dL) 116 H (70-110) mg/dL Hemoglobin A1c (<=6.0) % AST (17-59) U/L ALT (4-49) U/L Alkaline Phosphatase (38-126) U/L Total Protein (6.3-8.2) g/dL Albumin (3.5-5.0) g/dL Urine Protein 1+ H (Negative) Urine Glucose (UA) Trace H (Negative) Urine Blood Small H (Negative) 04/02/23 Range/Units 07:16 WBC (3.8-10.6) k/uL Neutrophils # (1.3-7.7) k/uL Sodium 136 L (137-145) mmol/L BUN 21 H (9-20) mg/dL Creatinine 1.36 H (0.66-1.25) mg/dL Glucose 120 H (74-99) mg/dL POC Glucose (mg/dL) (70-110) mg/dL Hemoglobin A1c (<=6.0) % AST 250 H (17-59) U/L ALT 60 H (4-49) U/L Alkaline Phosphatase 149 H (38-126) U/L Total Protein 5.9 L (6.3-8.2) g/dL Albumin 3.2 L (3.5-5.0) g/dL Urine Protein (Negative) Urine Glucose (UA) (Negative) Urine Blood (Negative)
[2023-04-02 11:49] LABS: Glucose,Whole Blood 219 mg/dL (70-110)
--- NOTE | 2023-04-02 13:42 | CA ---
Transthoracic Echo Report Name: Ben Fernando Age: 72 Gender: M : 1950 Exam Date: 04/01/2023 14:42 Exam Location: [facility] Ht (in): 69 Wt (lb): 155 Ordering Physician: Lauren Mora Attending/Referring Phys: [id number], Abby Detonator Maker Iron Castillo Procedure CPT: Indications: LV function, NSTEMi, hx of CABG Cardiac Hx: Technical Quality: Fair Contrast 1: Total Dose (mL): Contrast 2: Total Dose (mL): MEASUREMENTS (Male / Female) Normal Values 2D ECHO LV Diastolic Diameter PLAX 4.9 cm 4.2 - 5.9 / 3.9 - 5.3 cm LV Systolic Diameter PLAX 2.9 cm IVS Diastolic Thickness 1.1 cm 0.6 - 1.0 / 0.6 - 0.9 cm LVPW Diastolic Thickness 1.2 cm 0.6 - 1.0 / 0.6 - 0.9 cm LV Relative Wall Thickness 0.5 RV Internal Dim ED PLAX 3.7 cm LVOT Diameter 2.1 cm Aortic Root Diameter 3.1 cm LA Systolic Diameter LX 2.9 cm 3.0 - 4.0 / 2.7 - 3.8 cm LV Diastolic Volume MOD BP 76.4 cm??? 67 - 155 / 56 - 104 cm??? LV Systolic Volume MOD BP 36.6 cm??? 22 - 58 / 19 - 49 cm??? LV Ejection Fraction MOD BP 52.1 % >= 55 % LV Diastolic Volume MOD 4C 87.6 cm??? LV Systolic Volume MOD 4C 42.6 cm??? LV Ejection Fraction MOD 4C 51.3 % LV Diastolic Length 4C 8.4 cm LV Systolic Length 4C 7.6 cm LV Diastolic Volume MOD 2C 59.5 cm??? LV Systolic Volume MOD 2C 27.5 cm??? LV Ejection Fraction MOD 2C 53.8 % LV Diastolic Length 2C 7.5 cm LV Systolic Length 2C 6.7 cm LA Volume 54.3 cm??? 18 - 58 / 22 - 52 cm??? Ascending Aorta Diameter 3.2 cm DOPPLER AV Peak Velocity 107.5 cm/s AV Peak Gradient 4.6 mmHg MV Peak Velocity 77.4 cm/s MV Peak Gradient 2.4 mmHg MV Mean Velocity 34.9 cm/s MV Mean Gradient 0.6 mmHg MV Velocity Time Integral 27.6 cm MR Peak Velocity 190.5 cm/s MR Peak Gradient 14.5 mmHg Mitral E Point Velocity 73.4 cm/s Mitral A Point Velocity 58.9 cm/s Mitral E to A Ratio 1.2 MV Deceleration Time 153.0 ms MV E' Velocity 6.7 cm/s Mitral E to MV E' Ratio 11.0 TR Peak Velocity 241.5 cm/s TR Peak Gradient 23.3 mmHg Right Ventricular Systolic Press 28.6 mmHg PV Peak Velocity 146.5 cm/s PV Peak Gradient 8.6 mmHg FINDINGS Left Ventricle Left ventricular ejection fraction is estimated at 35-40 %. Left ventricular cavity size normal. Moderate decreased left ventricular ejection fraction. Apical Akinesis. Mildly increased septal wall thickness. Mildly decreased left ventricular ejection fraction. Apical Akinesis. Right Ventricle Normal right ventricular size. Right Atrium Normal right atrial size. Left Atrium Normal left atrial size. Mitral Valve Structurally normal mitral valve. Mild MR. Aortic Valve Trileaflet aortic valve. No aortic regurgitation. No aortic stenosis. Tricuspid Valve Structurally normal tricuspid valve. Mild TR. Pulmonic Valve Structurally normal pulmonic valve. Mild to Moderate PI. Pericardium Normal pericardium. Aorta Normal size aortic root and proximal ascending aorta. CONCLUSIONS LV size is at upper limits of normal. Base of the ventricle contracts well mid to distal septum and apical lateral wall hypokinetic this may be an apical ballooning syndrome type picture. Prior PR cannot be excluded. There is mild mitral and tricuspid insufficiency no significant pulmonary hypertension no pericardial effusion Previewed by: Dr. Devin Coombs MD (Electronically Signed) Final Date: 02 April 2023 13:41
--- NOTE | 2023-04-02 14:49 | P.PN ---
Subjective Progress Note Date: 04/02/23 patient is 72-year-old gentleman with past medical history significant for coronary disease status post CABG who presented to the ER because of chest pain. Patient stated that he started experiencing chest pressure on Saturday night after visiting a concert. Chest pressure was central in location, radiating to right arm, intermittent, not aggravated by any movement. Patient did complain of shortness of breath and diaphoresis that time. Patient had episode of chest pressure last night that lasted 30 minutes. This morning patient again had this chest pressure at that time patient had come to the ER. Denies any swelling of feet. Denies any orthopnea or PND. Initial lab work done in the ER showed WBC 7.9, hemoglobin 12.9, sodium 135, potassium 3.9, BUN 21, creatinine 1.15, initial troponin 5.3 Chest x-ray negative for acute pulmonary process Initial EKG done showed no ST segment elevation, did show Q waves in the inferior leads. Patient was admitted to medicine service 04/01. Patient seen and examined. No acute issues overnight. Vital signs are stable. Currently nothing by mouth for cardiac cath 04/02. Patient seen and examined. Cardiac cath done showed intermediate disease involving the SVG to RCA. iFR was nonischemic and 0.95. Denies any further episodes of chest pain or shortness of breath. Patient had low-grade fever overnight, chest x-ray was suspicious for pneumonia. Started on antibiotics. REVIEW OF SYSTEMS: CONSTITUTIONAL: As mentioned above CARDIOVASCULAR: No chest pain, no palpitations, no syncope. PULMONARY: No shortness of breath, no cough, GASTROINTESTINAL: No diarrhea, no nausea, no vomiting, no abdominal pain. NEUROLOGICAL: No headaches, no weakness, PHYSICAL EXAMINATION: GENERAL: The patient is alert and oriented x3, not in any acute distress. Well developed, well nourished. HEENT: Pupils are round and equally reacting to light. EOMI. No scleral icterus. No conjunctival pallor. Normocephalic, atraumatic. No pharyngeal erythema. No thyromegaly. CARDIOVASCULAR: S1 and S2 present. No murmurs, rubs, or gallops. PULMONARY: Chest is clear to auscultation, no wheezing or crackles. ABDOMEN: Soft, nontender, nondistended, normoactive bowel sounds. No palpable organomegaly. MUSCULOSKELETAL: No joint swelling or deformity. EXTREMITIES: No cyanosis, clubbing, or pedal edema. NEUROLOGICAL: Gross neurological examination did not reveal any focal deficits. SKIN: No rashes. Assessment and plan Non-ST elevation IL Bacterial pneumonia Insulin-dependent diabetes mellitus History of coronary disease status post CABG Hypertension History of neuroendocrine tumor of the pancreas Monitor vital signs Monitor CBC Monitor CMP Continue telemetry monitoring Cardiac cath done showed intermediate disease involving the SVG to RCA. iFR was nonischemic and 0.95. Continue aspirin , Lipitor Continue home meds Follow-up on 2-D echo Continue IV Zosyn and vancomycin, can be transitioned to oral Augmentin at discharge Follow-up on cardiology recommendations Objective - Vital Signs Vital signs: Vital Signs Temp 97.6 F 04/02/23 08:07 Pulse 66 04/02/23 08:07 Resp 16 04/02/23 08:07 BP 127/73 04/02/23 08:07 Pulse Ox 94 L 04/02/23 08:07 FiO2 Intake & Output 04/01/23 04/02/23 04/02/23 18:59 06:59 18:59 Intake Total 837.931 Output Total 300 Balance 537.931 Intake: IV 750 Intake, IV Titration 87.931 Amount Heparin Sod,Pork in 0.45% 87.931 NaCl 25,000 unit In 0.45 % NaCl 1 250ml.bag @ 12 UNITS/KG/HR 8.437 mls/hr IV .Q24H [facility] Rx#: [id number] Output: Urine 300 Other: Voiding Method Toilet Toilet Toilet Urinal Urinal Urinal # Voids 2 3 # Bowel Movements 1 - Labs CBC & Chem 7: 04/02/23 07:16 04/02/23 07:16 Labs: Abnormal Lab Results - Last 24 Hours (Table) 04/01/23 04/01/23 04/01/23 Range/Units 06:51 13:06 20:20 WBC (3.8-10.6) k/uL Neutrophils # (1.3-7.7) k/uL Sodium (137-145) mmol/L BUN (9-20) mg/dL Creatinine (0.66-1.25) mg/dL Glucose (74-99) mg/dL POC Glucose (mg/dL) 178 H 169 H (70-110) mg/dL Hemoglobin A1c 8.0 H (<=6.0) % AST (17-59) U/L ALT (4-49) U/L Alkaline Phosphatase (38-126) U/L Total Protein (6.3-8.2) g/dL Albumin (3.5-5.0) g/dL Urine Protein (Negative) Urine Glucose (UA) (Negative) Urine Blood (Negative) 04/02/23 04/02/23 04/02/23 Range/Units 00:08 06:34 07:16 WBC 11.7 H (3.8-10.6) k/uL Neutrophils # 9.5 H (1.3-7.7) k/uL Sodium (137-145) mmol/L BUN (9-20) mg/dL Creatinine (0.66-1.25) mg/dL Glucose (74-99) mg/dL POC Glucose (mg/dL) 116 H (70-110) mg/dL Hemoglobin A1c (<=6.0) % AST (17-59) U/L ALT (4-49) U/L Alkaline Phosphatase (38-126) U/L Total Protein (6.3-8.2) g/dL Albumin (3.5-5.0) g/dL Urine Protein 1+ H (Negative) Urine Glucose (UA) Trace H (Negative) Urine Blood Small H (Negative) 04/02/23 Range/Units 07:16 WBC (3.8-10.6) k/uL Neutrophils # (1.3-7.7) k/uL Sodium 136 L (137-145) mmol/L BUN 21 H (9-20) mg/dL Creatinine 1.36 H (0.66-1.25) mg/dL Glucose 120 H (74-99) mg/dL POC Glucose (mg/dL) (70-110) mg/dL Hemoglobin A1c (<=6.0) % AST 250 H (17-59) U/L ALT 60 H (4-49) U/L Alkaline Phosphatase 149 H (38-126) U/L Total Protein 5.9 L (6.3-8.2) g/dL Albumin 3.2 L (3.5-5.0) g/dL Urine Protein (Negative) Urine Glucose (UA) (Negative) Urine Blood (Negative)
[2023-04-02] MEDS: SODIUM CHLORIDE 0.9% 1,000 ML in EMPTY BAG 1 BAG IV SCH (15:49)
[2023-04-02 16:54] LABS: Glucose,Whole Blood 203 mg/dL (70-110)
[2023-04-02 20:16] LABS: Glucose,Whole Blood 168 mg/dL (70-110)
[2023-04-02] MEDS ORDERED: VANCOMYCIN 1,250 MG in SODIUM CHLORIDE 0.9% 250 ML IVPB SCH (21:00)
[2023-04-03] MEDS: SODIUM CHLORIDE 0.9% 1,000 ML in EMPTY BAG 1 BAG IV SCH (00:08)
[2023-04-03] MEDS: PIPERACILLIN-TAZOBACTAM 3.375 GM in SODIUM CHLORIDE 0.9% 100 ML IVPB SCH ×3 (00:25→13:31)
[2023-04-03 06:06] LABS: Glucose,Whole Blood 91 mg/dL (70-110)
[2023-04-03] MEDS ORDERED: INSULIN DETEMIR (LEVEMIR) 100 UNIT/ML SYR SQ SCH (07:00)
[2023-04-03] MEDS: INSULIN ASPART (NovoLOG) 100 UNIT/ML VIAL SQ SCH ×2 (07:29→13:35)
[2023-04-03 08:14] LABS: African American GFR (CKD) 47 (>60 ml/min/1.73 sqM); Non-African American GFR(CKD) 41 (>60 ml/min/1.73 sqM)
[2023-04-03] MEDS: LOSARTAN 50 MG TAB PO SCH (08:45)
[2023-04-03] MEDS: ATORVASTATIN 40 MG TAB PO SCH (08:45)
[2023-04-03] MEDS: ISOSORBIDE MONONITRATE ER 30 MG TAB.ER.24H PO SCH (08:45)
[2023-04-03] MEDS: MAGNESIUM OXIDE 400 MG TAB PO SCH (08:45)
[2023-04-03] MEDS: METOPROLOL SUCCINATE (ER) 25 MG TAB.ER.24H PO SCH (08:46)
[2023-04-03] MEDS: ASPIRIN 81 MG PO SCH (08:46)
[2023-04-03] MEDS: GABAPENTIN 100 MG CAP PO SCH (08:46)
[2023-04-03 11:28] LABS: Glucose,Whole Blood 248 mg/dL (70-110)
[2023-04-03 11:41] VITALS: RESP 16
--- NOTE | 2023-04-03 13:36 | P.PN ---
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 Patient presented to the hospital for chief complaint of chest pain. Patient does have a history of coronary artery disease with previous 5 vessel CABG in 1998. 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 Morgan. Patient was found to have intermediate disease of the SVG to RCA. He underwent iFR with Dr. Alanis which was found to be nonischemic at 0.95. Medical management was recommended. Patient examined this morning at the bedside. Denies chest pain or pressure. Denies SOB. Vital signs are stable. Patient spiked a fever yesterday night and was started on antibiotics. WBC this morning 11.7. chest x-ray completed revealing left basilar airspace opacity, new from prior exam, concerning for pneumonia. 04/03/2023 Patient examined this morning at the bedside. Patient denies chest pain or pressure. He denies shortness of breath. Patient is afebrile this morning. Echocardiogram completed revealing ejection fraction 35-40% PHYSICAL EXAM: VITAL SIGNS: Reviewed. GENERAL: Well-developed in no acute distress. NECK: Supple. No JVD or thyromegaly LUNGS: Respirations even and unlabored. Lungs essentially clear to auscultation bilaterally. HEART: Regular rate and rhythm. S1 and S2 heard. EXTREMITIES: Normal range of motion. No clubbing or cyanosis. Peripheral pulses intact. 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 Signing provider agrees with the documented findings, assessment, and plan of care. Objective - Vital Signs Vital signs: Vital Signs Temp 98.4 F 04/03/23 08:30 Pulse 63 04/03/23 08:30 Resp 16 04/03/23 08:30 BP 117/55 04/03/23 08:30 Pulse Ox 94 L 04/03/23 08:30 FiO2 Intake & Output 04/02/23 04/03/23 04/03/23 18:59 06:59 18:59 Intake Total 718 460 Balance 718 460 Intake: Oral 718 460 Other: Voiding Method Toilet Toilet Urinal Urinal # Voids 2 1 - Labs CBC & Chem 7: 04/02/23 07:16 04/03/23 06:53 Labs: Abnormal Lab Results - Last 24 Hours (Table) 04/02/23 04/02/23 04/03/23 Range/Units 16:51 20:14 06:53 Creatinine 1.65 H (0.66-1.25) mg/dL POC Glucose (mg/dL) 203 H 168 H (70-110) mg/dL 04/03/23 Range/Units 11:26 Creatinine (0.66-1.25) mg/dL POC Glucose (mg/dL) 248 H (70-110) mg/dL Microbiology - Last 24 Hours (Table) 04/01/23 00:13 Blood Culture - Preliminary Blood
[2023-04-03 15:13] VITALS: BP 101/57; PULSE 56; TEMP 97.1
== END 2023-04-03 16:24 | disposition home or self-care (01) | DRG 280 ==
LOC: EC 09:30 → 3SCARD 11:01
PROVIDERS: ADMIT Internal Medicine; ATTEND Internal Medicine
PROC: B2111ZZ Fluoroscopy of Multiple Coronary Arteries using Low Osmolar Contrast (ICD-10-PCS; principal; 2023-04-01 11:30)
PROC: 4A033BC Measurement of Arterial Pressure, Coronary, Percutaneous Approach (ICD-10-PCS; 2023-04-01 11:30)
DX: I21.4 Non-ST elevation (NSTEMI) myocardial infarction (principal); J15.9 Unspecified bacterial pneumonia; C78.7 Secondary malignant neoplasm of liver and intrahepatic bile duct; J44.0 Chronic obstructive pulmonary disease with (acute) lower respiratory infection; E11.65 Type 2 diabetes mellitus with hyperglycemia; I25.110 Atherosclerotic heart disease of native coronary artery with unstable angina pectoris; K21.9 Gastro-esophageal reflux disease without esophagitis; E78.5 Hyperlipidemia, unspecified; I10 Essential (primary) hypertension; I25.5 Ischemic cardiomyopathy; I45.10 Unspecified right bundle-branch block; I08.1 Rheumatic disorders of both mitral and tricuspid valves; Z79.82 Long term (current) use of aspirin; Z79.4 Long term (current) use of insulin; Z87.442 Personal history of urinary calculi; Z95.1 Presence of aortocoronary bypass graft
CPT/HCPCS: 36415; 71045; 71046; 80053; 80061; 81001; 82150; 82565; 83036; 83690; 83735; 84484; 85025; 85610; 85730; 87040; 93005; 93306; 93458; 93799; 94760; 96365; 96366; 96375; 99291

== ENCOUNTER → 2023-04-05 | Outpatient (CLI) | payer MEDICARE ==
[2023-04-05 16:39] LABS: BUN/Creat Ratio 13.94 Ratio (12.00-20.00); Blood Urea Nitrogen 22.3 mg/dL (9.0-27.0); Calcium 9.2 mg/dL (8.7-10.3); Carbon Dioxide 25.3 mmol/L (21.6-31.8); Chloride 107 mmol/L (96-109); Glucose 132 mg/dL (70-110); Sodium 141 mmol/L (135-145)
== END | disposition home or self-care (01) ==
LOC: LABWHC1 11:40
PROVIDERS: ATTEND Registered Nurse
DX: R94.4 Abnormal results of kidney function studies (principal)
CPT/HCPCS: 36415; 80048

== ENCOUNTER → 2023-04-29 | Outpatient (CLI) | payer MEDICARE ==
[2023-04-29 16:05] LABS: ALT 22 U/L (10-49); AST 30 U/L (14-35); Albumin 3.7 d/dL (3.8-4.9); Albumin/Globulin Ratio 1.48 Ratio (1.60-3.17); Alkaline Phosphatase 135 U/L (41-126); BUN/Creat Ratio 13.36 Ratio (12.00-20.00); Blood Urea Nitrogen 18.7 mg/dL (9.0-27.0); Calcium 8.8 mg/dL (8.7-10.3); Carbon Dioxide 21.5 mmol/L (21.6-31.8); Chloride 110 mmol/L (96-109); Chol/HDL Ratio 3.08 Ratio; Globulin 2.5 d/dL (1.6-3.3); Glucose 128 mg/dL (70-110); LDL Cholesterol,Calculated 55.9 mg/dL (0.0-131.0); Potassium 4.2 mmol/L (3.5-5.5); Sodium 141 mmol/L (135-145); Total Bilirubin 0.4 mg/dL (0.3-1.2); Total Protein 6.2 d/dL (6.2-8.2)
== END | disposition home or self-care (01) ==
LOC: LABWHC1 10:06
PROVIDERS: ATTEND Internal Medicine Clinical Cardiac Electrophysiology
DX: I25.10 Atherosclerotic heart disease of native coronary artery without angina pectoris (principal); E78.5 Hyperlipidemia, unspecified; C78.7 Secondary malignant neoplasm of liver and intrahepatic bile duct; N18.9 Chronic kidney disease, unspecified; D49.0 Neoplasm of unspecified behavior of digestive system
CPT/HCPCS: 36415; 80053; 80061